=== PATIENT | male | born 1960 | race Caucasian/White ===

== ENCOUNTER 2020-08-17 01:05 | Inpatient (IN) | payer MEDICAID, SELFPAY ==
[~2020-08-17] VITALS: Ht 182.9 cm; Wt 104.8 kg
[2020-08-17 01:05] VITALS: BP 86/51
--- NOTE | 2020-08-17 01:05 | NUR ---
PT ANJELICA BLS. TAKEN TO BED 10
--- NOTE | 2020-08-17 01:10 | NUR ---
PT PLACED ON 4L NC BY EMS - CURRENT SAO2 88% - WILL MONITOR PT TO SEE IF OXYGEN LEVEL WILL INCREASE ON HIS OWN.
--- NOTE | 2020-08-17 01:10 | NUR ---
60 Y/O MALE BIBA C/O SYNCOPE . PT STATES HE HAS HAD 3 EPISODES OF SYNCOPE X 1 TODAY, X 2 YESTERDAY. PT STATES HE TESTED + FOR COVID THIS WEEK. PT C/O OF LOSS OF APPETITE BUT DENIES N/V/D. PT STATES HE HASN'T EATEN ANYTHING ALL WEEK. A/O X 4. RR EVEN , SHALLOW AND LABORED. LUNG SOUND BL CLEAR. NO COUGH NOTED AT THIS TIME. PT STATES HE FEELS WARM, TEMPORAL TEMP 99.6 F . ABD ROUND, SOFT AND TENDER ON RUQ. SKIN WARM , MOIST AND INTACT. PT PLACED ON BUSINESS ACCOUNT SPECIALIST, PULSE OX AND BP CUFF. ERMD MADE AWARE OF PT STATUS. PMH: HTN, HYPOTHYROID AX: PCN
[2020-08-17] MEDS ORDERED: NACL 0.9% 500 ML IV ONE (01:15)
--- NOTE | 2020-08-17 01:15 | NUR ---
20 G IN LT HAND IV PLACED BY EMS PRIOR TO ER ARRIVAL - FLUSHED W/ 10 CC NS . IV PATENT , NO INFILTRATION , REDNESS , SWELLING OR PAIN AT IV SITE.
--- NOTE | 2020-08-17 01:25 | NUR ---
Dr. Good examining patient.
--- NOTE | 2020-08-17 01:25 | NUR ---
PT PROVIDED URINAL FOR ENCOURAGEMENT OF URINE SAMPLE.
--- NOTE | 2020-08-17 01:30 | NUR ---
BLOOD COLLECTED AND WALKED TO LAB.
[2020-08-17 01:44] LABS: BASOPHILS % (AUTO) 0.4 % (0.0-2.0); EOSINOPHILS % (AUTO) 0.4 % (0.0-4.0); HEMATOCRIT 39.1 % (36-52); HEMOGLOBIN 13.6 g/dL (12.0-18.0); LYMPHOCYTES # (AUTO) 0.5 K/uL (2.0-11.5); LYMPHOCYTES % (AUTO) 8.1 % (20.5-51.1); MEAN CORPUSCULAR HEMOGLOBIN 39 pg (27-31); MEAN CORPUSCULAR HGB CONC 35 g/dL (33-37); MONOCYTES # (AUTO) 0.4 K/uL (0.8-1.0); MONOCYTES % (AUTO) 6.6 % (1.7-9.3); NEUTROPHILS # (AUTO) 5.1 K/uL (1.8-7.7); NEUTROPHILS % (AUTO) 84.5 % (42.2-75.2); PLATELET COUNT (AUTO) 223 K/uL (140-450); RED BLOOD CELL COUNT(AUTO) 3.46 MIL/uL (4.20-6.10); RED CELL DISTRIBUTION WIDTH 12.8 % (11.6-13.7); WHITE BLOOD COUNT (AUTO) 6.1 K/uL (4.8-10.8)
--- NOTE | 2020-08-17 01:55 | NUR ---
XRAY AT BEDSIDE.
[2020-08-17 01:59] LABS: ANION GAP 12.9 (8-16); CARBON DIOXIDE 27.4 mmol/L (21-32); CHLORIDE 94 mmol/L (98-107); CREATININE 2.1 mg/dL (0.6-1.3); GFR ARICAN-AMERICAN 41 mL/min (>90); GLUCOSE 128 mg/dL (74-106); POTASSIUM 3.3 mmol/L (3.5-5.1); SODIUM SERUM 131 mmol/L (136-145); UREA NITROGEN, BLOOD 49 mg/dL (7-18)
--- NOTE | 2020-08-17 02:00 | NUR ---
PT SAO2 88% ON 4L NC - PT PLACED ON 10L NRB AT THIS TIME. RAMYAD MADE AWARE.
--- NOTE | 2020-08-17 02:00 | NUR ---
RT AT BEDSIDE FOR ABG.
[2020-08-17 02:10] LABS: PROTHROMBIN TIME 10.1 secs (10.8-13.4)
--- NOTE | 2020-08-17 02:10 | NUR ---
FLU & RSV SWABS COLLECTED AND HANDED TO NAIMA TONEY TECH.
--- NOTE | 2020-08-17 02:15 | NUR ---
PT OXYGEN LEVEL INCREASED TO 15L NRB AT THIS TIME . SAO2 92%
[2020-08-17 02:17] LABS: ASPARTATE AMINOTRANSFERASE 121 U/L (15-37); D-DIMER 2080 ng/ml (0-400); TOTAL BILIRUBIN 1.4 mg/dL (0.0-1.0)
[2020-08-17 02:19] LABS: ACETAMINOPHEN < 0.5 ug/ml (10-30); SALICYLATE < 2.8 mg/dL (2.8-20.0)
[2020-08-17] MEDS ORDERED: NACL 0.9% 2,000 ML IV ONE (02:20)
[2020-08-17] MEDS ORDERED: ZINC SULF 220 MG CAP PO ONE (02:20)
[2020-08-17] MEDS ORDERED: AZITHROMYCIN 1,000 MG in DEXTROSE 5% 500 ML IV ONE (02:20)
[2020-08-17] MEDS ORDERED: DEXAMETHASONE 10 MG/ML VIAL IVP ONE (02:20)
[2020-08-17 02:21] LABS: FIBRINOGEN 500 mg/dL (200-400)
[2020-08-17] MEDS ORDERED: AZITHROMYCIN 500 MG INJ VIAL IV ONE (02:25)
[2020-08-17 02:30] LABS: RSV NEGATIVE (NEGATIVE)
--- NOTE | 2020-08-17 02:30 | NUR ---
URINE SAMPLE COLLECTED AND WALKED TO LAB.
--- NOTE | 2020-08-17 02:30 | NUR ---
PER DR. GARCIA , HE WANTS TO SEE IF PT'S BLOOD PRESSURE GOES UP AFTER 2L BOLUS , IF NOT WE MAY NEED TO DO CENTRAL LINE.
--- NOTE | 2020-08-17 02:33 | NUR ---
RINKU SCOTT SWAB COLLECTED AND WALKED TO LAB.
[2020-08-17 02:34] LABS: LACTATE DEHYDROGENASE 517 U/L (85-227)
[2020-08-17 02:41] LABS: APPEARANCE,URINE HAZY (CLEAR); BILIRUBIN,URINE 1+ (NEGATIVE); BLOOD, URINE NEGATIVE (NEGATIVE); COLOR,URINE YELLOW (YELLOW); LEUKOCYTE ESTERASE ,URINE NEGATIVE (NEGATIVE); NITRITE, URINE NEGATIVE (NEGATIVE); UGLUCOSE NEGATIVE (NEGATIVE)
--- NOTE | 2020-08-17 02:45 | NUR ---
USING TELEPHONE VICE PRINCIPAL #[phone] , ZARIA - VERBALLY WENT OVER THAT WE MAY NEED TO DO CENTRAL LINE OR PICC LINE INSERTION FOR PATIENT'S LOW BLOOD PRESSURE. OBTAINED VERBAL CONSENT AND UNDERSTANDING FROM PT AT THIS TIME. PT SIGNED FORM FOR CENTRAL LINE INSERTION AT THIS TIME.
[2020-08-17 02:55] LABS: C-REACTIVE PROTEIN QUANT 33.2 mg/dL (0.0-0.9)
--- NOTE | 2020-08-17 03:02 | NUR ---
SPOKE W/ KEVEN PEDIATRICS PHYSICIAN FOR [facility] REGARDING PT CLINICAL STATUS. WILL CALL BACK W/ UPDATE ON PT TRANSFER STATUS.
[2020-08-17 03:04] LABS: FREE T4 (FREE THYROXINE) 1.63 ng/dL (0.76-1.46); THYROID STIMULATING HORMONE 1.54 uIU/mL (0.34-3.74)
[2020-08-17 03:04] LABS: BARBITURATE, URINE NEGATIVE ng/ml (NEG <=200); BENZODIAZEPINE, URINE NEGATIVE ng/mL (NEG <=200); COCAINE, URINE NEGATIVE ng/mL (NEG <=300)
[2020-08-17 03:05] LABS: CANNABINOID, URINE NEGATIVE ng/mL (NEG <=50); OPIATE, URINE NEGATIVE ng/mL (NEG <=2000); PHENCYCLIDINE SCREEN,URINE NEGATIVE ng/mL (NEG <=25)
[2020-08-17] MEDS ORDERED: LEVO0.2T5 PO (03:30)
[2020-08-17] MEDS ORDERED: ORE25 PO (03:30)
[2020-08-17] MEDS ORDERED: LOSA50TA66 PO (03:30)
[2020-08-17] MEDS ORDERED: NACL 0.9% 1,000 ML IV ONE (03:50)
--- NOTE | 2020-08-17 03:56 | NUR ---
SPOKE W/ KRISTINA FROM AFTER HOURS PHARMACY FOR VERIFICATION OF MEDICATION AT THIS TIME.
[2020-08-17] MEDS ORDERED: NOREPINEPHRINE 4 MG/4 ML VIAL IV ONE (04:04)
--- NOTE | 2020-08-17 04:28 | NUR ---
PT REVIEW PICC LINE PAPER WORK - OBTAINED INFORMED CONSENT AT THIS TIME.
[2020-08-17] MEDS: NOREPINEPHRINE 4 MG in DEXTROSE 5% 250 ML IV PRN ×2 (04:30→04:42)
--- NOTE | 2020-08-17 04:30 | NUR ---
FOR UPDATED VITALS SEE IV SPREADSHEET
--- NOTE | 2020-08-17 04:37 | NUR ---
PER PT HIS EMERGENCY CONTACT IS HIS SARATH JOHNSON [phone]
--- NOTE | 2020-08-17 04:55 | NUR ---
PT TOOK MASK OFF TO DRINK WATER . PT SAO2 88% . PT ENCOURAGED TO KEEP MASK ON AT THIS TIME.
--- NOTE | 2020-08-17 05:39 | NUR ---
PT SLEEPING IN BED, LOCKED AND IN LOWEST POSITION ,HOB ELEVATED, SIDE RAIL X2 FOR PT SAFETY. SAO2 91% ON 15L NRB. NO ACUTE DISTRESS NOTED AT THIS TIME.
--- NOTE | 2020-08-17 06:25 | NUR ---
EMPTIED 750ML FROM URINAL AT THIS TIME. PT PROVIDED W/ NEW URINAL .
--- NOTE | 2020-08-17 06:30 | NUR ---
NOVEL COVID SWAB COLLECTED AND WALKED TO LAB.
--- NOTE | 2020-08-17 06:30 | NUR ---
PT LEVOPHED INCREASED TO 6 MCG / MIN AT THIS TIME. NO SIGNS OF INFILTRATION AT IV SITE.
--- NOTE | 2020-08-17 07:12 | NUR ---
REPORT GIVEN TO GAY OSBORNE FOR TRANSFER OF CARE.
--- NOTE | 2020-08-17 07:17 | NUR ---
Received report from GAY Mack. Transfer of care at this time
[2020-08-17] MEDS ORDERED: POTASSIUM CHLORIDE 40 MEQ, LIDOCAINE MPF 1% 25 MG in NACL 0.9% 250 ML IV PRN (08:15)
[2020-08-17] MEDS ORDERED: ALBUTEROL SULFATE/IPRATROPIU 3 ML SOL IH PRN (08:15)
[2020-08-17] MEDS ORDERED: ZOLPIDEM 5 MG TAB PO PRN (08:15)
[2020-08-17] MEDS ORDERED: ONDANSETRON 4 MG/2 ML VIAL IM/IVP PRN (08:15)
[2020-08-17] MEDS ORDERED: ALBUTEROL HFA MDI 90 MCG/ACTUATION 8 GM INH PRN (08:15)
[2020-08-17] MEDS ORDERED: HYDROcodone/APAP 7.5/325 MG 1 TAB PO PRN (08:15)
[2020-08-17] MEDS ORDERED: DOCUSATE SODIUM 100 MG GELCAP PO PRN (08:15)
--- NOTE | 2020-08-17 08:30 | NUR ---
Patient seated upright in bed eating breakfast. Positioned for comfort. VSS
[2020-08-17] MEDS ORDERED: COMMUNICATION ORDER MC PRN (09:00)
--- NOTE | 2020-08-17 09:00 | NUR ---
Pt self repositioned at this time. Lying on right lateral side. VSS, will continue to monitor
[2020-08-17] MEDS: PANTOPRAZOLE 40 MG TABEC PO SCH (09:09)
[2020-08-17] MEDS: ASCORBIC ACID 500 MG TAB PO SCH (09:09)
[2020-08-17 09:25] LABS: CHOL/HDL RATIO 5.9 (1-4.5); FREE T4 (FREE THYROXINE) 1.49 ng/dL (0.76-1.46); MAGNESIUM 2.6 mg/dL (1.8-2.4)
--- NOTE | 2020-08-17 10:05 | NUR ---
Spoke to patients son, call for updates. Higinio Bowling [phone] - Bailey [phone]
--- NOTE | 2020-08-17 10:25 | NUR ---
PICC line nurse at bedside for insertion of PICC line.
--- NOTE | 2020-08-17 10:46 | NUR ---
Xray at bedside for verification of picc line placement
--- NOTE | 2020-08-17 10:59 | NUR ---
PICC line placement verified by X-ray, OK for use at this time. Levophed moved to left arm PICC line.
[2020-08-17] MEDS ORDERED: CLINICAL MONITORING MC PRN (11:25)
[2020-08-17] MEDS ORDERED: LOVENOX 1MG/KG Q24H SUBQ SCH (11:35)
--- NOTE | 2020-08-17 12:00 | NUR ---
patient repositioned on back, rr even and unlabored. VSS
[2020-08-17] MEDS ORDERED: REMDESIVIR (EUA) 200 MG in NACL 0.9% 100 ML IV SCH (13:00)
[2020-08-17] MEDS: ALBUTEROL SULFATE/IPRATROPIU 3 ML SOL IH SCH ×2 (13:00→19:00)
--- NOTE | 2020-08-17 14:02 | NUR ---
DISCHARGE PLANNING: THIS IS A 60 Y/O MALE PATIENT FROM HOME, WHO CAME IN DUE TO SYNCOPAL EPISODE. PAST MEDICAL HISTORY INCLUDE HTN, HYPOTHYROIDISM. INITIAL DIAGNOSIS OF COVID, HYPOXIA, PNEUMONIA, HYPOTENSION. CURRENT LABS INCLUDE WBC 6.1, H/H 13.6/39.1, NA/K 131/3.3, BUN/CREA 49/2.1, FIBRINOGEN 500, D DIMER 2080. RAPID COVID TEST NEGATIVE, PCR PENDING. CXR ON ADMISSION SHOWED HAZY INFILTRATE IN THE MID AND LUNG BASES BILATERALLY. ON REMDESIVIR, AZITHROMYCIN, DECADRON, ROCEPHIN. SEEN BY PULMO - CONT TO WEAN O2, WEAN VASOPRESSOR IF MAP GOES ABOVE 65, ID CONSULT, RECOMMENDS CONVALESCENT PLASMA. SEEN BY NEPHRO - GENTLE HYDRATION, STEROIDS WITH REMDESIVIR. ON 15 L NON REBREATHER, O2 SAT 92%. DC PLAN PENDING ON PATIENT RESPONSE TO TREATMENT. Addendum: 08/20/20 at 1143 by Lana Chin CM LATE ENTRY FOR THIS MORNING: MATEO ROBERTS OF [facility] UPDATED OF THE PATIENT'S CONDITION. SHE REQUESTED TO SEND CLINICALS TO [phone]. UPDATED CLINICALS SENT TO PROVIDED FAX NUMBER. Addendum: 08/20/20 at 1235 by Lana Chin CONTACTED MATEO ISIDROY OF [facility] TO CHECK IF SHE RECEIVED CLINICALS SENT, SHE STATED HER COORDINATOR MIGHT BE WORKING ON IT. I INQUIRED IF SHE HAS AN AUTH AVAILABLE FOR US. SHE PROVIDED ME WITH AUTH [id number]. Addendum: 08/21/20 at 1203 by Dana Oneal CM ALBERT HEAD: SENT UPDATED CLINICALS TO [facility]. Addendum: 08/22/20 at 1454 by Dana Oneal CM DC ALL ROUND LOGGER: FAXED UPDATED CLINICALS TO [facility] Addendum: 08/22/20 at 1643 by Lana Chin CM PER DR. GALE THIS PATIENT SHOULD BE UNDER THEIR SERVICES PER INSURANCE. CONTACTED MATEO ROBERTS OF [facility] AND SHE CONFIRMED THAT ALL THEIR [place] [facility] [place]. REAL MADE AWARE. PER DR. REAL OK TO PUT ADM ORDERS IN TO TRANSFER SERVICE. ORDER TRANSCRIBED. DR. GALE MADE AWARE. DR. GALE'S PHONE NUMBER PROVIDED TO DR. REAL. Addendum: 08/30/20 at 1547 by Liz Urbina RN DC PLANNING: CURRENTLY ON HIGH FLOW 40L/NC FIO2 100% PT COMPLETED THE CONVALESCENT PLASMA AND REMDESEVIR. DC PLAN TO WEAN HIM OFF O2 CM TO FOLLOW. Addendum: 09/04/20 at 1357 by Liz Urbina RN DC PLANNING: PT IS ON HIGH FLOW O2 40L/NC SATING 91% FIO2 100% COMPLETED REMDESEVIR , DECADRON AND CONVALESCENT PLASMA .ID AND PULMO FOLLOWING.DC PLAN TO WEAN O2 OFF. CM TO FOLLOW. Addendum: 09/13/20 at 1414 by Liz Urbina RN DC PLANNING PT IS STILL ON HIGH FLOW 15LNRB SATING 95% PER PULMO CONSULT PT NEEDS LTAC EVAL. [facility]ED TO [facility] CM TO FOLLOW Addendum: 09/13/20 at 1453 by Liz Urbina RN DC PLANNING: CALLED [facility] [phone] AND LEFT A MESSAGE REGARDING LTAC EVAL .CM TO FOLLOW Addendum: 09/19/20 at 1227 by Liz Urbina RN DC PLANING: PT IS ON 15L/NRB STILL PENDING FOR LTAC EVAL SPOKE WITH JULISSA AT [facility] NO BED AVAILABLE .CALLED REGLOYD CM AT [phone] LEFT A MESSAGE. CM TO FOLLOW Addendum: 09/19/20 at 1431 by Liz Urbina RN DC PLANING: CALLED PT'S [phone] SPOKE WITH SARATH AND THE DAUGHTER LOUIE DISCUSSED WITH THE THE NEED FOR LTAC . ANSWERED ALL QUESTION AND CONCERNS ,BOTH AGREED FOR HIM TO GO TO [facility] TO WEAN OFF OXYGEN AND JULISSA FROM [facility] WILL CONTACT THEM. CM TO FOLLOW. Addendum: 09/24/20 at 1254 by Dana Oneal CM DC ALL ROUND LOGGER: RECEIVED ORDER FOR HOME O2 FAXED ORDER TO [facility] AND FOLLOWED UP WITH MATEO TIJERINA [phone]. SHE IS WORKING ON THE ORDER SHE WILL BE SENDING IT OUT TO [facility]. PROVIDED HER WITH MY NUMBER TO FOLLOW UP
[2020-08-17] MEDS: ACETAMINOPHEN 325 MG TAB PO PRN (14:08)
[2020-08-17] MEDS: guaiFENesin DM 200/20 MG-10 ML 10 ML UDC PO PRN ×2 (14:08→21:33)
--- NOTE | 2020-08-17 15:10 | NUR ---
hhn rx not given due to covid percautions
--- NOTE | 2020-08-17 15:29 | NUR ---
Levophed titrated to 0 at this time. D/C to see how patient tolerates off of levophed.
--- NOTE | 2020-08-17 16:19 | NUR ---
Pt resting with eyes closed, visible rise and fall of the chest. No complaints at this time. VSS
[2020-08-17] MEDS ORDERED: ENOXAPARIN 100 MG/ML SYR SUBQ SCH (17:00)
--- NOTE | 2020-08-17 18:17 | NUR ---
Pt given dinner tray, seated upright awake and alert. VSS .
--- NOTE | 2020-08-17 19:18 | NUR ---
Report given to GAY Liang. Transfer of care at this time
--- NOTE | 2020-08-17 19:20 | NUR ---
RECEIVED REPORT FROM [place] RASHID FOR CONTINUITY OF CARE.
--- NOTE | 2020-08-17 20:02 | NUR ---
PT REPOSITIONED , LIGHTS DIMMED , X 2 SIDE RAILS PER PTS REQUEST FOR COMFORT AT THIS TIME.
--- NOTE | 2020-08-17 20:05 | NUR ---
PT PRESENTS WELL VSS. HE IS AAOX4, BULGARIAN SPEAKING ONLY. ON 5 L OF OXYGEN VIA NC. LAYING IN BED FLAT PER PTS REQUEST FOR COMFORT. PT WAS NOTED WITH A DRY COUGH, LUNG SOUNDS WHEEZING ON AUSCULTATION BILATERALLY. HEART SOUNDS WERE EVEN AND REGULAR. PT CONTINUES ON WATER RESOURCES PROJECT MANAGER, PULSE OXIMETRY AND BP MONITORING. BED LOCKED AND IN LOWEST POSITION. SIDE RAILS X2 PER PTS REQUEST AND COMFORT.
--- NOTE | 2020-08-17 20:15 | NUR ---
DR. ASHLEY INFECTIOUS DISEASE CAME IN TO EVALUATE PT.
--- NOTE | 2020-08-17 21:04 | NUR ---
HHN NOT GIVEN DUE TO COVID PROTOCOL
--- NOTE | 2020-08-17 21:10 | NUR ---
PT WAS NOTED WITH SPO2 AT 78% ON 5 L LITERS OF OXYGEN VIA NC. PT WAS PLACED ON 15 L VIA NON-REBREATER. PT'S SPO2 REMAINED AT 89%. NOTIFIED DR. ASHLEY NOTIFIED AND VERBALIZED TO "JUST MONITOR PT FOR NOW". NO NEW ORDERS AT THIS TIME. WILL CONTINUE TO MONITOR PT. PT REMAINS AAO X 4. RR 41. CALL LIGHT PLACED WITHIN REACH. WILL CONTINUE ON PULSE OXIMETRY, CARDIAC MONITORING AND BP MONITORING.
[2020-08-17 22:26] LABS: CHLORIDE,URINE RANDOM 86 mmol/L (110-250); CREATININE,URINE RANDOM 55 mg/dL (30-125); URINE SODIUM, RANDOM 85 mmol/l (40-220)
--- NOTE | 2020-08-17 23:00 | NUR ---
PT'S SPO2 INCREASED TO 93% ON 15L OF OXYGEN VIA NON-REBREATHER. HE CONTINUES TO REMAIN ON PULSE OXIMETRY, CARDIAC MONITORING & BP MONITORING. CALL LIGHT WITHIN REACH. PT WAS REPOSITION FOR COMFORT AND ADJUSTED HOB TO COMFORTABLE POSITION. PROVIDED PT WITH WATER REQUESTED. WILL CONTINUE TO MONITOR.
[2020-08-18] MEDS: ALBUTEROL SULFATE/IPRATROPIU 3 ML SOL IH SCH ×3 (01:00→13:00)
--- NOTE | 2020-08-18 01:05 | NUR ---
NOTIFIED THAT PT SATURATION WAS 80%-85% ON 15 L OF OXYGEN VIA NON-REBREATHER AND THAT PT WAS PRESENTING WITH TACHYPNEA, RR OF 40. DR. ASHLEY GAVE TELEPHONE ORDER TO START PT ON BIPAP AND TO TITRATE FOR SPO2 >90%.
--- NOTE | 2020-08-18 01:13 | NUR ---
RT AT BEDSIDE PLACING PT ON BIPAP PER 'S ORDERS. GAVE TO/RB TO TITRATE FOR O2 SAT TO BE GREATER THAN 90%.
--- NOTE | 2020-08-18 01:29 | NUR ---
WENT TO BEDSIDE AND PLACED PT ON BIPAP PER DR ORDERS ( AND WILL TITRATE SPO2 >90% ) INITIALLY PT SPO2 MID/HIGH 70s UPON ARRIVAL PT WAS PLACED ON 06/18 AND SPO2 STEADLY CLIMBED INTO 90s PER PT HE UTILIZES NOC BIPAP AT HOME PT TOLERATING BIPAP WELL AT THIS TIME
--- NOTE | 2020-08-18 01:47 | NUR ---
RECEIVED TELEPHONE ORDER FROM DR. ASHLEY FOR ABG.
--- NOTE | 2020-08-18 02:12 | NUR ---
PT TOLERATING BIPAP WELL SATURATION AT 98%. RR OF 41 AT THIS TIME. CONTINUES ON CARDIAC MONITORING, PULSE OXIMETRY AND BP MONITORING. WILL CONTINUE TO MONITOR.
--- NOTE | 2020-08-18 02:30 | NUR ---
EMPTIED PT'S URINAL WITH 700ML OF YELLOW CLEAR URINE.
--- NOTE | 2020-08-18 02:41 | NUR ---
HHN NOT GIVEN PER COVID PROTOCOL
--- NOTE | 2020-08-18 03:20 | NUR ---
RT AT BEDSIDE FOR ABG LAB DRAWN.
--- NOTE | 2020-08-18 05:11 | NUR ---
PT REMAINS ON BIPAP RR OF 36. VSS. DENIES HAVING ANY PAIN OR DISCOMFORT. URINAL AT BEDSIDE. REMAINS ON CARDIAC MONITORING, PULSE OXIMETRY AND BP MONITORING. BED LOCKED AND IN LOWEST POSITION. WILL CONTINUE TO MONITOR.
--- NOTE | 2020-08-18 06:37 | NUR ---
PT REMAINS ON BIPAP O2SAT OF 94% & RR OF 35. VSS. DENIES HAVING ANY PAIN OR DISCOMFORT. REMAINS ON CARDIAC MONITORING, PULSE OXIMETRY AND BP MONITORING. BED LOCKED AND IN LOWEST POSITION. WILL CONTINUE TO MONITOR. CALL LIGHT WITHIN REACH.
--- NOTE | 2020-08-18 07:03 | NUR ---
RT AT BEDSIDE AND LABS AT BEDSIDE.
--- NOTE | 2020-08-18 07:15 | NUR ---
REPORT GIVEN TO YOHANNES RASHID FOR CONTINUITY OF CARE.
--- NOTE | 2020-08-18 07:38 | NUR ---
REPORT RECEIVED FROM EMMY RASHID
--- NOTE | 2020-08-18 07:45 | NUR ---
REPORT RECEIVED FROM YOHANNES ARMSTRONG RN OVER THE PHONE. PATIENT STABLE AT THIS TIME, O2 SATURATION 95% ON BIBAP. PATIENT IS SLATED TO BE TRANSFERRED TO FLOOR IN 10 MINUTES.
[2020-08-18 08:00] VITALS: BP 103/70
--- NOTE | 2020-08-18 08:14 | NUR ---
Patient will be admitted to care of [facility] . Admited to TELE. Will go to room 121. Belongings list completed. Report to MIK RSAHID.
[2020-08-18 08:15] LABS: BASOPHILS % (AUTO) 0.1 % (0.0-2.0); HEMATOCRIT 39.5 % (36-52); HEMOGLOBIN 13.6 g/dL (12.0-18.0); LYMPHOCYTES # (AUTO) 0.3 K/uL (2.0-11.5); LYMPHOCYTES % (AUTO) 3.2 % (20.5-51.1); MEAN CORPUSCULAR HEMOGLOBIN 39 pg (27-31); MEAN CORPUSCULAR HGB CONC 34 g/dL (33-37); MEAN CORPUSCULAR VOLUME 113.2 fL (80-94); MONOCYTES # (AUTO) 0.5 K/uL (0.8-1.0); NEUTROPHILS # (AUTO) 8.3 K/uL (1.8-7.7); NEUTROPHILS % (AUTO) 91.7 % (42.2-75.2); PLATELET COUNT (AUTO) 285 K/uL (140-450); RED BLOOD CELL COUNT(AUTO) 3.49 MIL/uL (4.20-6.10); RED CELL DISTRIBUTION WIDTH 12.8 % (11.6-13.7); WHITE BLOOD COUNT (AUTO) 9.1 K/uL (4.8-10.8)
--- NOTE | 2020-08-18 08:17 | NUR ---
PATIENT HAS BEEN SCREENED AND CATEGORIZED HIGH NUTRITION RISK. PATIENT WILL BE SEEN WITHIN 1-2 DAYS OF ADMISSION. 08/18/20 08/19/[address]
[2020-08-18 08:54] LABS: MAGNESIUM 2.2 mg/dL (1.8-2.4); PHOSPHORUS 2.4 mg/dL (2.5-4.9)
[2020-08-18] MEDS ORDERED: AZITHROMYCIN 250 MG TAB PO SCH (09:00)
[2020-08-18 09:03] LABS: ALBUMIN 2.7 g/dL (3.4-5.0); ANION GAP 12.6 (8-16); CARBON DIOXIDE 28.3 mmol/L (21-32); CREATININE 0.9 mg/dL (0.6-1.3); POTASSIUM 3.9 mmol/L (3.5-5.1); TOTAL BILIRUBIN 0.6 mg/dL (0.0-1.0)
--- NOTE | 2020-08-18 10:00 | NUR ---
0900 LINDA NOT AVAILABLE. CALLED PHARMACY. THEY WILL BRING MEDICATION.
[2020-08-18] MEDS: ZINC SULF 220 MG CAP PO SCH (10:23)
[2020-08-18] MEDS: ASCORBIC ACID 500 MG TAB PO SCH (10:23)
[2020-08-18] MEDS: PANTOPRAZOLE 40 MG TABEC PO SCH (10:23)
[2020-08-18 12:00] VITALS: BP 112/61
--- NOTE | 2020-08-18 12:10 | NUR ---
PATIENT'S ON CHRISTOPHER CALLED. PHONE #: [phone]. SARATH CONFERENCED IN ON THE CALL. UPDATED THEM ON PATIENT'S CONDITION. ANSWERED QUESTIONS THEY HAD TO THEIR SATISFACTION.
--- NOTE | 2020-08-18 12:55 | NUR ---
Dr. Storm in to see the patient. New order in for patient to be weaned from BIPAP to HFNC with NRB mask. Forwarded Doctor's request to RT. Will continue to monitor patient.
--- NOTE | 2020-08-18 12:57 | NUR ---
08/18/20 RD INITIAL ASSESSMENT COMPLETED PLEASE REFER TO NUTRITION ASSESSMENT UNDER CARE ACTIVITY FOR ESTIMATED NUTRITIONAL NEEDS. 1. CONTINUE REGULAR DIET TOLERATED 2. CONTINUE ENSURE TID TOLERATED 3. RD TO FOLLOW-UP 2-3 DAYS, HIGH RISK HENRI CASTILLO RD
[2020-08-18] MEDS ORDERED: ENOXAPARIN 100 MG/ML SYR SUBQ SCH (13:00)
[2020-08-18] MEDS: REMDESIVIR (EUA) 100 MG in NACL 0.9% 100 ML IV SCH ×2 (13:35→13:39)
[2020-08-18] MEDS: ENOXAPARIN 120 MG/0.8 ML SYR SUBQ SCH (13:41)
--- NOTE | 2020-08-18 13:45 | NUR ---
UNABLE AT THIS TIME TO WEAN PT OFF BIPAP PT DESAT TO 86% WHILE SLEEPING WILL TRY LATER TO CHANGE PT TO HIGH FLOW O2 WITH 100% NRB PER ORDERS
[2020-08-18 16:00] VITALS: BP 112/74
--- NOTE | 2020-08-18 16:50 | NUR ---
PATIENT'S SON CHRISTOPHER CALLED. UPDATED HIM ON PATIENT'S CONDITION. HE VERBALIZED UNDERSTANDING.
[2020-08-18] MEDS: guaiFENesin DM 200/20 MG-10 ML 10 ML UDC PO PRN (17:03)
--- NOTE | 2020-08-18 17:33 | NUR ---
DR ASHLEY IN TO SEE THE PATIENT. WILL WAIT FOR NEW ORDERS.
--- NOTE | 2020-08-18 19:06 | NUR ---
PT REMOVED FROM BIPAP AND PT PLACED ON HFNC 40L 100% TOLERATING FAIRLY WELL AT THIS TIME RN MADE AWARE WILL CONTINUE TO MONITOR
--- NOTE | 2020-08-18 19:20 | NUR ---
RECEIVED PT IN STABLE CONDITION FROM AM NURSE. PT IS AWAKE,ALERT AND ORIENTED X4. TELE PT. ON DROPLET ISOLATION FOR COVID +. NO SOB NOTED. JUST STARTED BY RT WITH HI FLOW O2 FEW MINUTES AGO. WILL MONITOR FOR PT TOLERATION WITH THIS. HAS IV ACCESS W/C IS ON LEFT UPPER ARM PICC LINE. IVF KVO. FREQ ROUNDS NEEDED. BED ON LOW POSITION. SIDE RAILS UP X2. CALL LIGHT WITHIN REACH. WILL CONTINUE TO MONITOR.
[2020-08-18 20:00] VITALS: BP 90/42
--- NOTE | 2020-08-18 20:20 | NUR ---
SPO2 85% UPON ARRIVAL PT STATED THE CANNULA MOVED/MOVED AWAY FROM FACE AND HE REPLACED PT ALSO TENDS TO MOUTH BREATHE AT TIMES PT CURRENT SPO2 92% HR 78 ON HFNC 40L 100% NRB PLACED ON PT WELL PT SEEMS TO BE COMFORTABLE AND MAY GO TO SLEEP SOON WILL CONTINUE TO MONITOR
--- NOTE | 2020-08-18 20:30 | NUR ---
CHECKED ON PT. RESTING IN BED, NO SOB NOTED. WITH O2 SAT 97% WITH HI SHAMA AND NRM BOTH 100%. WILL CONTINUE TO MONITOR .
--- NOTE | 2020-08-18 22:30 | NUR ---
MADE ROUNDS. PT O2 SAT 88%. RT CALLED TO REASSESS PT.
--- NOTE | 2020-08-18 23:00 | NUR ---
CHECKED ON PT . ASLEEP. O2 SAT 02%. NO SOB NOTED. WILL CONTINUE TO MONITOR. Addendum: 08/19/20 at 0320 by Shakila Parekh RN O2 SAT 92% NOT O2%. CAREGIVER MISTAKE.
[2020-08-19] VITALS (7 sets, daily range): BP systolic 86–116; BP diastolic 42–74
[2020-08-19] MEDS: ENOXAPARIN 120 MG/0.8 ML SYR SUBQ SCH ×2 (00:41→12:03)
--- NOTE | 2020-08-19 00:45 | NUR ---
LOVENOX ORDERED GIVEN SUBQ ON THE ABDOMEN. INSTRUCTED AGAIN PT TO LAY ON THE SIDE TO GET ENOUGH O2 . O2 SAT AT THIS TIME 91%. NO SOB NOTED.
--- NOTE | 2020-08-19 02:55 | NUR ---
CHECKED ON PT. ASLEEP. O2 SAT ONLY 79%. INSTRUCTED PT TO LAY ON THE SIDE . PRESTON,RT CAME. ASSESSED PT. O2 SAT STARTED TO GO UP TO 91%.
[2020-08-19] MEDS ORDERED: NACL 0.9% 500 ML IV ONE (04:20)
--- NOTE | 2020-08-19 04:22 | NUR ---
BP IS LOW 86/42 . LEFT MESSAGE TO DR. ASHLEY. ANSWERED BACK AND ORDERED TO GIVE NS 500 ML IV BOLUS THEN AFTER 30 MIN TO 1HR BP NOT IMPROVING GIVE ANOTHER NS 500 IV BOLUS
--- NOTE | 2020-08-19 05:43 | NUR ---
SPO2 91% HR 75 PT RESTING COMFORTABLY AT THIS TIME Addendum: 08/19/20 at 0546 by Hu Layne Jr RT WATER BAG / FULL
--- NOTE | 2020-08-19 06:02 | NUR ---
TALKED TO CHRISTOPHER ZENG. SON REGARDING PT NEEDING CONVALESCENT PLASMA I UNIT. PT ALREADY SIGNED CONSENT BUT THEN HE STILL WANTS TO TALK TO THE MD REGARDING THE TREATMENTS HE IS GETTING HERE. SON SAID HE IS ALSO GOING TO TELL HIS MOM ABOUT THIS. WILL CALL ME BACK.
[2020-08-19 06:18] LABS: BASOPHILS % (AUTO) 0.1 % (0.0-2.0); HEMATOCRIT 37.9 % (36-52); HEMOGLOBIN 12.9 g/dL (12.0-18.0); LYMPHOCYTES # (AUTO) 0.6 K/uL (2.0-11.5); MEAN CORPUSCULAR HEMOGLOBIN 39 pg (27-31); MEAN CORPUSCULAR HGB CONC 34 g/dL (33-37); MEAN CORPUSCULAR VOLUME 113.6 fL (80-94); MONOCYTES # (AUTO) 0.8 K/uL (0.8-1.0); MONOCYTES % (AUTO) 8.6 % (1.7-9.3); NEUTROPHILS # (AUTO) 7.7 K/uL (1.8-7.7); PLATELET COUNT (AUTO) 290 K/uL (140-450); RED BLOOD CELL COUNT(AUTO) 3.33 MIL/uL (4.20-6.10); RED CELL DISTRIBUTION WIDTH 12.9 % (11.6-13.7); WHITE BLOOD COUNT (AUTO) 9.1 K/uL (4.8-10.8)
[2020-08-19 06:48] LABS: ALBUMIN 2.6 g/dL (3.4-5.0); CREATININE 0.8 mg/dL (0.6-1.3); TOTAL BILIRUBIN 0.6 mg/dL (0.0-1.0)
--- NOTE | 2020-08-19 06:50 | NUR ---
NS 500 ML BOLUS FINISHED INFUSING. LATEST BP 116/74, HR-75 AND O2 SAT 97%. WILL ENDORSE TO AM NURSE.
--- NOTE | 2020-08-19 07:04 | NUR ---
LEFT MESSAGE TO DR. ASHLEY THAT PT WANTS TO TAKE HIS LEVOTHYROXINE 200MCG PO DAILY. WAITING FOR CALL BACK.
--- NOTE | 2020-08-19 07:20 | NUR ---
ENDORSED PT IN STABLE CONDITION TO AM NURSE .
--- NOTE | 2020-08-19 07:21 | NUR ---
RECEIVED REPORT FROM PM RN FOR CONTINUITY OF CARE. PT IS STABLE. WILL CONTINUE WITH POC.
[2020-08-19 07:31] LABS: LYMPHOCYTES % (AUTO) 6.8 % (20.5-51.1); NEUTROPHILS % (AUTO) 84.5 % (42.2-75.2)
--- NOTE | 2020-08-19 07:41 | NUR ---
PT HAD HIGH FLOW NC OFF AND O2 WAS 89% TURNED DOWN FLOW TO 30 DUE TO PT SAYING TOO MUCH PLACE BACK NC AND NRB ON PT
[2020-08-19] MEDS: ASCORBIC ACID 500 MG TAB PO SCH (08:32)
[2020-08-19] MEDS: PANTOPRAZOLE 40 MG TABEC PO SCH (08:32)
[2020-08-19] MEDS: ZINC SULF 220 MG CAP PO SCH (08:33)
--- NOTE | 2020-08-19 08:45 | NUR ---
PT IS AWAKE AND ALERT ORIENTED X 4 IN NO DISTRESS REMAIN ON HIGHFLOW AND NRB AT 15L. SPO2 94%. LUNG SOUNDS COARSE ABD IS SOFT AND NONTENDER WITH ACTIVE BS X4, DENIES DIFFICULTY GOING. SKIN INTACT. CALL LIGHT WITHIN REACH. PT ASKED ABOUT LEVOTHYROXINE ORDER STILL WAITING FOR MD RESPONSE. HAS URINAL AT BEDSIDE TKO TO LEFT UPPER ARM PICC LINE. WILL CONTINUE WITH POC.
[2020-08-19] MEDS ORDERED: LEVOTHYROXINE 0.075 MG TAB PO SCH (09:25)
--- NOTE | 2020-08-19 10:44 | NUR ---
PT IS RESTING IN BED SPO2 95-97% CALL LIGHT WITHIN REACH PT REMAINS FOCUSED ON WANTING TO SPEAK TO MD. PT NOTIFIED MD WILL COME TO DO ROUNDS TODAY. ALL NEEDS MET AT THIS TIME.
[2020-08-19] MEDS: REMDESIVIR (EUA) 100 MG in NACL 0.9% 100 ML IV SCH (12:04)
--- NOTE | 2020-08-19 12:50 | NUR ---
PT IS AWAKE LAYING ON LEFT SIDE RECEIVING REMDESIVIR WITH NO ISSUES TO LEFT UPPER ARM PICC. PT REMAINS ON HIGH FLOW AND NRB AT 95%. ALL NEEDS MET. RECEIVED PHONE CALL FROM LAB REGARDING POSITIVE PCR FOR COVID DR. ASHLEY NOTIFIED. PT IS ALREADY ON DROPLET PRECAUTION.
--- NOTE | 2020-08-19 14:20 | NUR ---
RESTING IN BED WITH EYES CLOSED, RESP EVEN AND UNLABORED. CALL LIGHT WITHIN REACH SP02 97%.
--- NOTE | 2020-08-19 16:40 | NUR ---
SPO2 94-97% ON HIGH FLOW 100% AND NRB 15L ALL NEEDS MET AT THIS TIME. V/S: 97.0, 78, 20, 109/53, 97%. Addendum: 08/19/20 at 1733 by Lisbet Giron RN PAIN 0/10
--- NOTE | 2020-08-19 18:45 | NUR ---
PT SITTING UP IN BED, EATING DINNER IN NO DISTRESS. PT TOLERATING MEALS WELL. ALL NEEDS ARE MET. CALL LIGHT WITHIN REACH.
--- NOTE | 2020-08-19 19:15 | NUR ---
PT ENDORSED TO PM RN FOR CONTINUITY OF CARE PT IS STABLE, NEW LEADS JUST APPLIED
--- NOTE | 2020-08-19 19:16 | NUR ---
RECD. SITTING ON BED, AWAKE, A/OX4. WITH SOB, RR - 30. ON HI-SHAMA OXYGEN SATURATING 89 - 95%. ADVISED TO LIE MORE ON THE LEFT SIDE OR RIGHT SIDE SO THAT HIS 02 SAT WILL NOT DROP LOW. VERBALIZED UNDERSTANDING. LEFT UPPER ARM PICC LINE INTACT WITH NS INFUSING AT TKO. USES THE URINAL. PLAN OF CARE DISCUSSED WITH GAY NAJERA TO THE PATIENT. DENIES PAIN 0/10.
--- NOTE | 2020-08-19 20:00 | NUR ---
Patient's Plan of Care was discussed and reviewed with PRESTRESSED CONCRETE LABORER: RISHABH KIDD
--- NOTE | 2020-08-19 20:14 | NUR ---
WATERBAG 1/3 FULL PT DENIES SOB AT THIS TIME WILL CONTINUE TO MONITOR
--- NOTE | 2020-08-19 21:00 | NUR ---
RESTING IN BED ON HIS LEFT SIDE, 02 SAT - 94%.
[2020-08-20] VITALS: BP 98/59
--- NOTE | 2020-08-20 | NUR ---
SLEEPING ON HIS RIGHT SIDE. NO RESPIRATORY DISTRESS NOTED, 02 SAT - 89%.
[2020-08-20] MEDS: ENOXAPARIN 120 MG/0.8 ML SYR SUBQ SCH ×2 (01:56→13:45)
--- NOTE | 2020-08-20 02:00 | NUR ---
WATERBAG 1/8 FULL REPLACEMENT AT BEDSIDE
[2020-08-20 04:00] VITALS: BP 102/64
--- NOTE | 2020-08-20 04:00 | NUR ---
AWAKE IN BED, WANTS HIS THYROID PILLS ONE HOUR BEFORE BREAKFAST, ASSURED PRINCESS THE WILL GET IT ON TIME.
[2020-08-20 06:11] LABS: BASOPHILS % (AUTO) 0.1 % (0.0-2.0); HEMATOCRIT 37.8 % (36-52); HEMOGLOBIN 12.7 g/dL (12.0-18.0); LYMPHOCYTES # (AUTO) 0.5 K/uL (2.0-11.5); MEAN CORPUSCULAR HEMOGLOBIN 38 pg (27-31); MEAN CORPUSCULAR HGB CONC 34 g/dL (33-37); MEAN CORPUSCULAR VOLUME 114.4 fL (80-94); MONOCYTES # (AUTO) 0.8 K/uL (0.8-1.0); MONOCYTES % (AUTO) 8.2 % (1.7-9.3); NEUTROPHILS # (AUTO) 8.2 K/uL (1.8-7.7); NEUTROPHILS % (AUTO) 86.7 % (42.2-75.2); PLATELET COUNT (AUTO) 315 K/uL (140-450); RED BLOOD CELL COUNT(AUTO) 3.31 MIL/uL (4.20-6.10); RED CELL DISTRIBUTION WIDTH 12.8 % (11.6-13.7); WHITE BLOOD COUNT (AUTO) 9.5 K/uL (4.8-10.8)
[2020-08-20] MEDS: LEVOTHYROXINE 0.075 MG TAB PO SCH (06:16)
[2020-08-20 06:39] LABS: ALBUMIN 2.4 g/dL (3.4-5.0); CARBON DIOXIDE 30.1 mmol/L (21-32); CREATININE 0.8 mg/dL (0.6-1.3); POTASSIUM 4.1 mmol/L (3.5-5.1); TOTAL BILIRUBIN 0.6 mg/dL (0.0-1.0)
[2020-08-20] MEDS: ALBUTEROL SULFATE/IPRATROPIU 3 ML SOL IH SCH ×3 (07:00→19:00)
--- NOTE | 2020-08-20 07:00 | NUR ---
RESPIRATORY STATUS REMAIN STABLE. WILL ENDORSE TO AM SHIFT NURSE FOR CONTINUITY OF CARE.
[2020-08-20 08:00] VITALS: BP 121/59
[2020-08-20] MEDS: ASCORBIC ACID 500 MG TAB PO SCH (09:48)
[2020-08-20] MEDS: PANTOPRAZOLE 40 MG TABEC PO SCH (09:48)
[2020-08-20] MEDS: ZINC SULF 220 MG CAP PO SCH (09:48)
--- NOTE | 2020-08-20 10:00 | NUR ---
ADMINISTERED SCHEDULED MEDICATION, MEDICATION EDUCATION PROVIDED, PT VERBALIZED UNDERSTANDING, PT TOLERATED WELL, PT IS STABLE, WILL CONTINUE TO MONITOR.
[2020-08-20 12:00] VITALS: BP 115/68
[2020-08-20] MEDS: REMDESIVIR (EUA) 100 MG in NACL 0.9% 100 ML IV SCH (13:45)
--- NOTE | 2020-08-20 13:50 | NUR ---
ADMINISTERED SCHEDULED MEDICATION, MEDICATION EDUCATION PROVIDED, PT TOLERATED WELL. PT IS STABLE, WILL CONTINUE TO MONITOR. PT'S FAMILY UPDATED ON PT'S CONDITION.
--- NOTE | 2020-08-20 14:30 | NUR ---
SOCIAL WORK NOTE: Patient's Orientation Unable To Assess Information Provided By SARATH JOHNSON - Comments SW WAS UNABLE TO MEET PATIENT AT BEDSIDE DUE TO MEDICAL CONDITION. SW COMPLETED ASSESSMENT WITH PATIENT'S AND SON TELEPHONICALLY. Roller Coaster Designer, Realtionship and Phone Number SARATH GROVES [phone] Healthcare Power of Urban Designer No Does Patient Have a POLST No Identifying Problems No Social Work Triggers Is A Social Work Consult Needed No Mandate Report Filed No Explanation Of Identifying Problems PATIENT IS A 60-YEAR-OLD MALE ADMITTED FOR COVID, HYPOXIA, AND PNEUMONIA. PATIENT HAS PMHX OF HYPERTENSION AND THYROID DISEASE. PATIENT'S REPORTED NO HISTORY OF SUBSTANCE ABUSE OR MENTAL HEALTH. Admitted From Home Pre-Admission Level Of Functioning Status Independent/Ambulatory Prior Resources/Services Used In Last 12 Months No Prior Resources Used Prior DME No Prior DME Used Dialysis Comments N/A Living Situation Lives With Family House Other Living Situation/Comment PATIENT'S REPORTED THAT PATIENT LIVES WITH AND SON. Patient Had Caregiver No Home Support No Caregiver Issues Financial Issues No Known Financial Issue Referral To The Financial Counselor Needed No Factors/Needs No D/C Needs Identified Pt/Rep Participated In Discharge Plan Yes Patient/Family Agress With Discharge Plan Yes Discharge Plan Comments TENTATIVE DISCHARGE PLAN IS FOR PATIENT TO RETURN HOME. DC Plan Status Initiated
--- NOTE | 2020-08-20 15:30 | NUR ---
PT SITTING IN BED, NO SIGNS OF DISTRESS NOTED, PT STABLE WILL CONTINUE TO MONITOR
[2020-08-20 16:00] VITALS: BP 120/67
--- NOTE | 2020-08-20 17:50 | NUR ---
PT CALLING ASKING ABOUT PLASMA. INFORMED PT, WILL NOTIFIED BLOOD BANK, PT IS STABLE, WILL CONTINUE TO MONITOR.
--- NOTE | 2020-08-20 19:20 | NUR ---
ENDORSE PT TO NIGHT NURSE FOR CONTINUITY OF CARE, PT IS STABLE, WILL CONTINUE TO MONITOR.
--- NOTE | 2020-08-20 19:35 | NUR ---
RECEIVED PT ON PRONE POSITION, EASILY AROUSABLE, ON HIGH FLOW O2 VIA NRB MASK AT 30L, SAT-90%, NO RESP DISTRESS NOTED, IVF AT TKO RATE INFUSING WELL VIA LT UA PICC LINE, MAINTAINED ON DROPLET PRECAUTION FOR COVID POSITIVE, PLAN OF CARE DISCUSSED, CALL LIGHT WITHIN REACH.
[2020-08-20 20:00] VITALS: BP 122/70
--- NOTE | 2020-08-20 20:50 | NUR ---
1930 RECEIVED PATIENT ON 100% FIO2 VIA NRB MASK AT 15L FLUSH. SATS WERE 83%. PLACED PATIENT BACK ON HIGH FLOW AT 30LITERS AT 100% FIO2 ALONG WITH THE NRB MASK. PATIENTS SATS IMPROVED TO 90%. PT POLISH SPEAKING ONLY.
[2020-08-21] VITALS: BP 119/77
--- NOTE | 2020-08-21 | NUR ---
PT SLEEPING ON SUPINE POSITION, EASILY AROUSABLE, NO RESP DISTRESS NOTED, AWAITING AVAILABILITY OF PLASMA CONVALESCENT, CONTINUE ON HIGH FLOW O2 VIA NRB MASK AT 30L, SAT-90%, MONITORED CLOSELY.
--- NOTE | 2020-08-21 00:40 | NUR ---
1 UNIT PLASMA CONVALESCENT STARTED, VITAL SIGNS PER PROTOCOL, MONITORED CLOSELY FOR REACTION.
[2020-08-21] MEDS: ENOXAPARIN 120 MG/0.8 ML SYR SUBQ SCH ×2 (00:51→13:27)
[2020-08-21] MEDS: ALBUTEROL SULFATE/IPRATROPIU 3 ML SOL IH SCH ×3 (01:00→13:00)
--- NOTE | 2020-08-21 01:10 | NUR ---
PT SEEN ON A PRONE POSITION, EASILY AROUSABLE, VITAL SIGNS STABLE, SAT-94-96% ON PRONE POSITION,PLASMA CONVALESCENT INFUSING WELL, NO REACTION NOTED, MONITORED CLOSELY.
--- NOTE | 2020-08-21 02:00 | NUR ---
PT SEEN AWAKE ON HIGH FOWLERS POSITION, PLASMA TRANSFUSION DONE, VITAL SIGNS STABLE, NO REACTION NOTED, SAT-89% ON HIGH FLOW O2 VIA NRB MASK AT 30L, NO RESP DISTRESS NOTED, RESUMED IVF AT TKO RATE, MONITORED CLOSELY.
[2020-08-21 04:00] VITALS: BP 127/67
--- NOTE | 2020-08-21 05:20 | NUR ---
PT SEEN WITH SAT OF 77-78%, COILN RT MADE AWARE AND INCREASED THE HIGH FLOW O2 TO MAX RATE OF 40L, SAT WENT UP TO 83-85%, PT SLEEPING, EASILY AROUSABLE, NO RESP DISTRESS NOTED, MONITORED CLOSELY.
[2020-08-21] MEDS: LEVOTHYROXINE 0.075 MG TAB PO SCH (06:19)
--- NOTE | 2020-08-21 06:20 | NUR ---
PT SLEEPING, DUE SYNTHROID TAKEN, ENCOURAGE TO PRONE BUT STATED LATER, PT WENT BACK TO SLEEP, NO RESP DISTRESS NOTED, MONITORED CLOSELY.
[2020-08-21 07:01] LABS: BASOPHILS % (AUTO) 0.1 % (0.0-2.0); EOSINOPHILS % (AUTO) 0.1 % (0.0-4.0); HEMATOCRIT 37.8 % (36-52); HEMOGLOBIN 12.7 g/dL (12.0-18.0); LYMPHOCYTES # (AUTO) 0.6 K/uL (2.0-11.5); LYMPHOCYTES % (AUTO) 5.6 % (20.5-51.1); MEAN CORPUSCULAR HEMOGLOBIN 39 pg (27-31); MEAN CORPUSCULAR HGB CONC 34 g/dL (33-37); MONOCYTES # (AUTO) 0.8 K/uL (0.8-1.0); MONOCYTES % (AUTO) 7.3 % (1.7-9.3); NEUTROPHILS # (AUTO) 9.1 K/uL (1.8-7.7); NEUTROPHILS % (AUTO) 86.9 % (42.2-75.2); PLATELET COUNT (AUTO) 349 K/uL (140-450); RED BLOOD CELL COUNT(AUTO) 3.29 MIL/uL (4.20-6.10); WHITE BLOOD COUNT (AUTO) 10.5 K/uL (4.8-10.8)
--- NOTE | 2020-08-21 07:20 | NUR ---
PT SLEEPING, NO SIGNS OF DISTRESS, REPORT GIVEN TO CHAR FOR CONTINUITY OF CARE.
--- NOTE | 2020-08-21 07:22 | NUR ---
RECEIVED REPORT FROM NIGHT NURSE FOR CONTINUITY OF CARE, PT IS STABLE, PT ASLEEP, PT IS KOSOVAN SPEAKING. PT HAS LEFT UA PICC LINE INFUSING NS AT 10ML/H, SKIN INTACT. PT RECEIVED CONVALESCENT PLASMA LAST NIGHT. SAFETY MEASURES IN PLACE, CALL LIGHT WITHIN REACH. WILL CONTINUE TO MONITOR.
[2020-08-21 07:50] LABS: ALBUMIN 2.3 g/dL (3.4-5.0); ANION GAP 12.4 (8-16); CARBON DIOXIDE 29.2 mmol/L (21-32); CREATININE 0.7 mg/dL (0.6-1.3); POTASSIUM 4.6 mmol/L (3.5-5.1); TOTAL BILIRUBIN 0.5 mg/dL (0.0-1.0)
[2020-08-21 08:00] VITALS: BP 114/66
[2020-08-21] MEDS: ASCORBIC ACID 500 MG TAB PO SCH (08:49)
[2020-08-21] MEDS: ZINC SULF 220 MG CAP PO SCH (08:50)
[2020-08-21] MEDS: PANTOPRAZOLE 40 MG TABEC PO SCH (08:50)
--- NOTE | 2020-08-21 09:01 | NUR ---
ADMINISTERED SCHEDULED MEDICATION, MEDICATION EDUCATION PROVIDED, PT TOLERATED WELL. PT IS STABLE, CALL LIGHT WITHIN REACH, WILL CONTINUE TO MONITOR.
--- NOTE | 2020-08-21 11:00 | NUR ---
ROUNDING ON PT, PT SITTING IN BED, PT IS STABLE, WILL CONTINUE TO MONITOR
[2020-08-21 12:00] VITALS: BP 125/56
[2020-08-21] MEDS: REMDESIVIR (EUA) 100 MG in NACL 0.9% 100 ML IV SCH (13:28)
--- NOTE | 2020-08-21 13:31 | NUR ---
ADMINISTERED SCHEDULED MEDICATION, MEDICATION EDUCATION PROVIDED, PT TOLERATED WELL. PT IS STABLE, WILL CONTINUE TO MONITOR.
--- NOTE | 2020-08-21 15:30 | NUR ---
ROUNDING ON PT, PT SIDE LAYING IN BED, PT IS STABLE, WILL CONTINUE TO MONITOR.
--- NOTE | 2020-08-21 15:51 | NUR ---
08/21/20 RD FOLLOW UP COMPLETED PLEASE REFER TO NUTRITION ASSESSMENT UNDER CARE ACTIVITY FOR ESTIMATED NUTRITIONAL NEEDS. 1. CONTINUE REGULAR DIET TOLERATED 2. CONTINUE ENSURE TID 3. ENCOURAGE PO INTAKE 4. RD TO FOLLOW-UP 3-5 DAYS, MODERATE RISK ALBA MEYER, RD
[2020-08-21 16:00] VITALS: BP 122/65
--- NOTE | 2020-08-21 18:30 | NUR ---
PT ASKING TO HAND HIM HIS CELLPHONE. HANDED PT THE PHONE. PT IS STABLE, WILL CONTINUE TO MONITOR.
--- NOTE | 2020-08-21 19:30 | NUR ---
ENDORSE PT TO NIGHT NURSE FOR CONTINUITY OF CARE, PT IS STABLE
--- NOTE | 2020-08-21 19:31 | NUR ---
RECEIVED ENDORSEMENT FROM AM SHIFT RN. PT IS EATING, ALERT AND ORIENTED X4, NO SOB, NO DISTRESS, ON HI FLOW O2 AND 15L NRM, AMBULATORY, USES URINAL, DROPLET PRECAUTION IN PLACE, SAFETY MEASURES IN PLACE, PLAN OF CARE DISCUSSED, CALL LIGHT WITHIN REACH.
[2020-08-21 20:00] VITALS: BP 107/66
--- NOTE | 2020-08-21 20:41 | NUR ---
CHECKED PT, STATES THAT HE'S OK, NO SOB, ENCOURAGE TO LIE ON PRONE POSITION, PT VERBALIZED UNDERSTANDING, CALL LIGHT WITHIN REACH.
[2020-08-22] VITALS: BP 102/51
[2020-08-22] MEDS: ENOXAPARIN 120 MG/0.8 ML SYR SUBQ SCH ×2 (00:20→13:37)
--- NOTE | 2020-08-22 00:30 | NUR ---
CHECKED PT, ON PRONE POSITION, GAVE DUE MED ORDERED, TOLERATED WELL, NO DISTRESS, NO SOB, DROPLET PRECAUTION OBSERVED AT ALL TIMES, CALL LIGHT WITHIN REACH.
--- NOTE | 2020-08-22 02:00 | NUR ---
PT ASLEEP, NOTED CHEST RISE, NO SOB, CALL LIGHT WITHIN REACH.
[2020-08-22 04:00] VITALS: BP 120/70
--- NOTE | 2020-08-22 04:40 | NUR ---
CHECKED PT. AWAKE, WATCHING TV, NO SOB, FIXED/REPLACED THE TELE MONITOR PATCH, ALL NEEDS ATTENDED, CALL LIGHT WITHIN REACH.
[2020-08-22] MEDS: LEVOTHYROXINE 0.075 MG TAB PO SCH (05:38)
--- NOTE | 2020-08-22 05:38 | NUR ---
DUE MEDS GIVEN ORDERED, TOLERATED WELL, NO SOB, CALL LIGHT WITHIN REACH.
[2020-08-22 06:10] LABS: BASOPHILS % (AUTO) 0.1 % (0.0-2.0); EOSINOPHILS % (AUTO) 0.2 % (0.0-4.0); HEMATOCRIT 37.5 % (36-52); HEMOGLOBIN 12.6 g/dL (12.0-18.0); LYMPHOCYTES # (AUTO) 0.7 K/uL (2.0-11.5); LYMPHOCYTES % (AUTO) 5.7 % (20.5-51.1); MEAN CORPUSCULAR HEMOGLOBIN 39 pg (27-31); MEAN CORPUSCULAR HGB CONC 34 g/dL (33-37); MEAN CORPUSCULAR VOLUME 114.7 fL (80-94); MONOCYTES # (AUTO) 0.5 K/uL (0.8-1.0); MONOCYTES % (AUTO) 4.3 % (1.7-9.3); NEUTROPHILS # (AUTO) 10.3 K/uL (1.8-7.7); NEUTROPHILS % (AUTO) 89.7 % (42.2-75.2); PLATELET COUNT (AUTO) 349 K/uL (140-450); RED BLOOD CELL COUNT(AUTO) 3.27 MIL/uL (4.20-6.10); RED CELL DISTRIBUTION WIDTH 13.2 % (11.6-13.7); WHITE BLOOD COUNT (AUTO) 11.5 K/uL (4.8-10.8)
[2020-08-22 06:22] LABS: ANION GAP 10.3 (8-16); CARBON DIOXIDE 32.7 mmol/L (21-32); CREATININE 0.8 mg/dL (0.6-1.3)
--- NOTE | 2020-08-22 06:57 | NUR ---
PT IS IN STABLE CONDITION, CONTINUE ON HI FLOW AND 15L NRM, NO SOB, NO DISTRESS, KEPT CLEAN, DRY AND COMFORTABLE, CALL LIGHT WITHIN REACH.
[2020-08-22] MEDS: ALBUTEROL SULFATE/IPRATROPIU 3 ML SOL IH SCH ×2 (07:00→19:00)
--- NOTE | 2020-08-22 07:40 | NUR ---
REC'D BEDSIDE ENDORSEMENT FROM NIGHTSHIFT NURSE. PATIENT IS RESTING AND STABLE. WILL PROCEED W/ CONTINUITY OF CARE
[2020-08-22 08:00] VITALS: BP 102/69
[2020-08-22] MEDS: PANTOPRAZOLE 40 MG TABEC PO SCH (10:10)
[2020-08-22] MEDS: ZINC SULF 220 MG CAP PO SCH (10:11)
[2020-08-22] MEDS: ASCORBIC ACID 500 MG TAB PO SCH (10:12)
--- NOTE | 2020-08-22 10:17 | NUR ---
ADMINISTERED PRESCRIBED MEDS PER MD ORDER. PATIENT TOLERATED WELL. MEDICATION EDUCATION PROVIDED. PATIENT VERBALIZED UNDERSTANDING. SAFETY MEASURES IN PLACE. WILL CONT TO MONITOR.
--- NOTE | 2020-08-22 11:49 | NUR ---
[facility] RX NOT GIVEN DUE TO RINKU MURRAY
--- NOTE | 2020-08-22 11:53 | NUR ---
Received patient in am, assisted to bed, patient had a large bowel movement, noted with elevated HR 130's. am medication given, high flow on 15 liters venti mask. patient is on his side, blood pressure stable. will inform Dr. Aguilar of tachycardia. will monitor,
[2020-08-22 12:00] VITALS: BP 109/59
--- NOTE | 2020-08-22 12:08 | NUR ---
NOTIFIED PATIENT SINUS TACH THIS MORNING. REC'D VERBAL ORDER FOR EKG. ORDER PLACED. PATIENT IS IN BED RESTING. DENIES PAIN. ABLE TO MAKE NEEDS KNOWN. SAFETY MEASURES IN PLACE. WILL CONT TO MONITOR.
--- NOTE | 2020-08-22 12:53 | NUR ---
PATIENT HIGH FLOW O2 MACHINE OUT OF WATER. CONTACTED RT FOR SERVICE. PATIENT DENIES PAIN, NO SIGNS OF DISTRESS, NOON SP02 91%. SAFETY MEASURES IN PLACE. WILL CONT TO MONITOR.
--- NOTE | 2020-08-22 13:45 | NUR ---
ADMINISTERED PRESCRIBED MEDS PER MD ORDER. PATIENT TOLERATED WELL. DENIES PAIN/SOB. SAFETY MEASURES IN PLACE. WILL CONT TO MONITOR.
--- NOTE | 2020-08-22 14:59 | NUR ---
REC'D PHONE CALL FROM SON YANN, GAVE UPDATE ON PATIENT TODAY. HOURLY ROUND PEFORMED AND PATIENT IS RESTING IN BED, NO SIGNS OF DISTRESS. SAFETY MEASURES IN PLACE. WILL CONT TO MONITOR.
[2020-08-22 16:00] VITALS: BP 123/54
--- NOTE | 2020-08-22 18:21 | NUR ---
HOURLY ROUNDING PERFORMED ON PATIENT. PATIENT LYING ON R SIDE, O2 SAT 93%. NO SIGNS OF DISTRESS. SAFETY MEASURES IN PLACE. WILL CONT TO MONITOR.
--- NOTE | 2020-08-22 19:23 | NUR ---
PATIENT ENDORSED TO NIGHTSHIFT NURSE FOR CONTINUITY OF CARE. PATIENT IS STABLE.
[2020-08-22 20:00] VITALS: BP_SYST 11; BP_SYST 111; BP_DIAS 74
--- NOTE | 2020-08-22 23:10 | NUR ---
received pt in stable condition on bed.resp.unlabored.tele is on and showing sr.call light in reach.no c/o pain or sob now.will continue monitoring.vs stable.
[2020-08-23] VITALS: BP 110/73
--- NOTE | 2020-08-23 | NUR ---
RESP.UNLABORED W/O2.VS STABLE.NO DISTRESS NOTED AT PRESENT TIME.CALL LIGHT IN REACH.
[2020-08-23] MEDS: ALBUTEROL SULFATE/IPRATROPIU 3 ML SOL IH SCH ×4 (01:00→19:00)
[2020-08-23] MEDS: ENOXAPARIN 120 MG/0.8 ML SYR SUBQ SCH ×2 (01:50→13:34)
[2020-08-23 04:00] VITALS: BP 118/71
--- NOTE | 2020-08-23 04:12 | NUR ---
SLEEPING W/O ANY SIGN OF DISTRESS.CALL LIGHT IN REACH.
[2020-08-23] MEDS: LEVOTHYROXINE 0.075 MG TAB PO SCH (06:02)
[2020-08-23 07:14] LABS: BASOPHILS % (AUTO) 0.1 % (0.0-2.0); HEMATOCRIT 38.9 % (36-52); LYMPHOCYTES # (AUTO) 0.5 K/uL (2.0-11.5); LYMPHOCYTES % (AUTO) 3.9 % (20.5-51.1); MEAN CORPUSCULAR HEMOGLOBIN 38 pg (27-31); MEAN CORPUSCULAR HGB CONC 33 g/dL (33-37); MEAN CORPUSCULAR VOLUME 114.8 fL (80-94); MONOCYTES # (AUTO) 0.5 K/uL (0.8-1.0); MONOCYTES % (AUTO) 3.8 % (1.7-9.3); NEUTROPHILS # (AUTO) 11.7 K/uL (1.8-7.7); NEUTROPHILS % (AUTO) 92.2 % (42.2-75.2); PLATELET COUNT (AUTO) 349 K/uL (140-450); RED BLOOD CELL COUNT(AUTO) 3.38 MIL/uL (4.20-6.10); RED CELL DISTRIBUTION WIDTH 13.2 % (11.6-13.7); WHITE BLOOD COUNT (AUTO) 12.7 K/uL (4.8-10.8)
[2020-08-23 07:29] LABS: ANION GAP 9.9 (8-16); CARBON DIOXIDE 33.3 mmol/L (21-32); CREATININE 0.9 mg/dL (0.6-1.3); POTASSIUM 5.2 mmol/L (3.5-5.1)
--- NOTE | 2020-08-23 07:30 | NUR ---
RECEIVED PT RESTING COMFORTABLY. NO SOB NOTED. NO SIGNS OF PAIN AT THIS TIME. WILL MONITOR PT.
--- NOTE | 2020-08-23 07:42 | NUR ---
ENDORSED TO AM RN .PT'S CONDITION IS STABLE.NO SOB ,NO PAIN NOTED.
[2020-08-23 08:00] VITALS: BP 114/60
[2020-08-23] MEDS: ZINC SULF 220 MG CAP PO SCH (10:10)
[2020-08-23] MEDS: PANTOPRAZOLE 40 MG TABEC PO SCH (10:10)
[2020-08-23] MEDS: ASCORBIC ACID 500 MG TAB PO SCH (10:11)
--- NOTE | 2020-08-23 10:30 | NUR ---
PT AWAKE, TALKING ON THE PHONE. NO SOB NOTED, STILL ON HIGH FLOW WITH 90-93% OXYGEN SATURATIONS.
[2020-08-23 12:00] VITALS: BP 152/76
[2020-08-23] MEDS ORDERED: FUROSEMIDE 20 MG/2 ML VIAL IVP SCH (14:10)
--- NOTE | 2020-08-23 15:20 | NUR ---
PT ON PRONE POSITION INSTRUCTED. NO SOB NOTED. NO SIGNS OF PAIN. WILL CONTINUE TO MONITOR.
[2020-08-23 16:00] VITALS: BP 117/65
--- NOTE | 2020-08-23 19:00 | NUR ---
PT RESTING. N0 SOB NOTED. NO SIGNS OF PAIN AT THIS TIME. WILL ENDORSE TO NEXT SHIFT NURSE FOR CONTINUITY OF CARE.
[2020-08-23 20:00] VITALS: BP 119/93
--- NOTE | 2020-08-23 23:42 | NUR ---
RECEIVED REPORT OF PT IN STABLE CONDITION.RESP.UNLABORED W/HIGH FLOW O2.PICC LINE PATENT.LUNGS DIMINISHED. NO C/O PAIN/SOB NOW.CALL LIGHT WITHIN REACH.WILL CONT.MONITORING.
[2020-08-24] VITALS: BP 107/61
[2020-08-24] MEDS: ALBUTEROL SULFATE/IPRATROPIU 3 ML SOL IH SCH ×3 (01:00→13:00)
[2020-08-24] MEDS: ENOXAPARIN 120 MG/0.8 ML SYR SUBQ SCH ×2 (01:11→13:55)
--- NOTE | 2020-08-24 01:58 | NUR ---
SLEEPING.O2 SAT=87.RECHECKED=91% NOW.NO SOB NOTED.WILL CONT.MONITORING.LOVENOX SUB.Q GIVEN.
[2020-08-24 04:00] VITALS: BP 124/64
[2020-08-24] MEDS: LEVOTHYROXINE 0.075 MG TAB PO SCH (06:29)
--- NOTE | 2020-08-24 07:30 | NUR ---
RECEIVED PT ASLEEP, NO SOB NOTED. NO C/O PAIN AT THIS TIME. WILL CONTINUE TO MONITOR.
--- NOTE | 2020-08-24 07:52 | NUR ---
ENDORSED TO AM RN IN STABLE CONDITION.
[2020-08-24 08:00] VITALS: BP 114/71
--- NOTE | 2020-08-24 08:20 | NUR ---
RECEIVED ON A VAPOTHERM HIGH FLOW TO A NASAL CANNULA PLUGGED ONTO RED OUTLET TOLERATING WELL WITHOUT ADVERSE REACTIONS NOTED TO A PARTIAL REBREATHER AT 15 LPM LOC AWAKE AND ALERT IN HFW POSITION
[2020-08-24 09:42] LABS: BASOPHILS % (AUTO) 0.3 % (0.0-2.0); EOSINOPHILS % (AUTO) 0.1 % (0.0-4.0); HEMATOCRIT 42.8 % (36-52); HEMOGLOBIN 14.1 g/dL (12.0-18.0); LYMPHOCYTES # (AUTO) 0.9 K/uL (2.0-11.5); LYMPHOCYTES % (AUTO) 5.4 % (20.5-51.1); MEAN CORPUSCULAR HEMOGLOBIN 38 pg (27-31); MEAN CORPUSCULAR HGB CONC 33 g/dL (33-37); MEAN CORPUSCULAR VOLUME 114.5 fL (80-94); MONOCYTES # (AUTO) 0.5 K/uL (0.8-1.0); MONOCYTES % (AUTO) 3.3 % (1.7-9.3); NEUTROPHILS # (AUTO) 14.4 K/uL (1.8-7.7); NEUTROPHILS % (AUTO) 90.9 % (42.2-75.2); PLATELET COUNT (AUTO) 384 K/uL (140-450); RED BLOOD CELL COUNT(AUTO) 3.74 MIL/uL (4.20-6.10); RED CELL DISTRIBUTION WIDTH 13.6 % (11.6-13.7); WHITE BLOOD COUNT (AUTO) 15.8 K/uL (4.8-10.8)
[2020-08-24 10:17] LABS: FIBRINOGEN 765 mg/dL (200-400)
[2020-08-24 10:27] LABS: ALBUMIN 2.5 g/dL (3.4-5.0); ANION GAP 12.4 (8-16); CARBON DIOXIDE 32.3 mmol/L (21-32); POTASSIUM 4.7 mmol/L (3.5-5.1); TOTAL BILIRUBIN 0.7 mg/dL (0.0-1.0)
[2020-08-24] MEDS: PANTOPRAZOLE 40 MG TABEC PO SCH (10:29)
[2020-08-24] MEDS: ASCORBIC ACID 500 MG TAB PO SCH (10:30)
[2020-08-24] MEDS: ZINC SULF 220 MG CAP PO SCH (10:30)
[2020-08-24 10:45] LABS: D-DIMER 2890 ng/ml (0-400)
[2020-08-24 10:57] LABS: C-REACTIVE PROTEIN QUANT 14.5 mg/dL (0.0-0.9)
[2020-08-24 12:00] VITALS: BP 111/57
--- NOTE | 2020-08-24 13:05 | NUR ---
PT RESTING. NO SOB NOTED. NO COMPLAINTS MADE. ENDORSED CARE TO CHAR-RN IN STABLE CONDITION.
--- NOTE | 2020-08-24 13:20 | NUR ---
RECEIVED REPORT FROM NURSE FOR CONTINUITY OF CARE, PT IS STABLE. PT ON 40% HI-FLOW. PT HAS HARRY PICC SALINE LOCK. WILL CONTINUE TO MONITOR.
--- NOTE | 2020-08-24 13:58 | NUR ---
ADMINISTERED SCHEDULED MEDICATION. MEDICATION EDUCATION PROVIDED, PT VERBALIZED UNDERSTANDING. PT TOLERATED WELL. PT IS STABLE. WILL CONTINUE TO MONITOR.
--- NOTE | 2020-08-24 15:20 | NUR ---
ROUNDING ON PT, PT RESTING IN BED, PT IS STABLE, CONTINUE TO MONITOR
[2020-08-24 16:00] VITALS: BP 119/69
--- NOTE | 2020-08-24 17:00 | NUR ---
ROUNDING ON PT, PT IS STABLE, WILL CONTINUE TO MONITOR.
--- NOTE | 2020-08-24 19:10 | NUR ---
RECEIVED BEDSIDE REPORT FROM DAY SHIFT NURSE FOR CONTINUITY OF CARE. PT IS AWAKE AND ALERT, A&OX4. FRISIAN SPEAKING. ON 40% HIGH FLOW OXYGEN NASAL CANNULA. O2 SAT AT 90%. BREATHING UNLABORED. PT STATES THE OXYGEN FLOW IS TOO HIGH ON SHIFT CHANGE. WILL NOTIFY RT. ON TELE MONITORING. COMMODE AT BEDSIDE FOR VOIDING AND URINAL AT BEDSIDE. SKIN IS WARM, DRY, AND INTACT. LEFT UPPER ARM PICC LINE IN PLACE SALINE LOCKED. PATENT AND FLUSHING. PT IS ON DROPLET PRECAUTIONS IN PLACE FOR COVID POSITIVE RESULT. PT IS STABLE AT THIS TIME. PLAN OF CARE DISCUSSED.
--- NOTE | 2020-08-24 19:30 | NUR ---
RT WAS CALLED TO THE BEDSIDE BECAUSE PT STATES THE OXYGEN IS TOO STRONG. O2 SAT IS 90% ON HIGH FLOW NASAL CANNULA WITH NRB IN PLACE AT 15L. BREATHING IS UNLABORED. RT TO ASSESS AND SPEAK WITH PATIENT.
[2020-08-24 20:00] VITALS: BP 96/58
--- NOTE | 2020-08-24 21:30 | NUR ---
PT IS ASLEEP IN SEMI FOWLERS POSITION. NO RESPIRATORY DISTRESS NOTED. O2 SAT IS 92%. CHEST RISE AND FALL IS SYMMETRICAL. PT EASILY AWOKEN BY NOISE. PT STATES HE WANTS TO EAT DINNER AND TRAY WAS SET UP FOR PT. HE IS NOW POSITIONING HIMSELF AT THE EDGE OF THE BED TO EAT DINNER. EDUCATION WAS GIVEN TO EAT SLOWLY AND PLACE NRB IN BETWEEN EVERY FEW BITES OF FOOD IN ORDER TO KEEP OXYGENATED. PT VERBALIZED UNDERSTANDING. WILL MONITOR OXYGEN LEVEL AND WORK OF BREATHING.
--- NOTE | 2020-08-24 23:30 | NUR ---
PT IS SLEEPING. NO SOB OR COUGHING NOTED. O2 SAT IS 95%. BREATHING IS UNLABORED. WILL CONTINUE TO MONITOR.
[2020-08-25] VITALS: BP 127/77
--- NOTE | 2020-08-25 | NUR ---
O2 SAT WAS 85% WHEN TAKEN BY [employer]. NONREBREATHER MASK WAS READJUSTED AND O2 SAT IS NOW 90%. PT IS STABLE.
[2020-08-25] MEDS: ENOXAPARIN 120 MG/0.8 ML SYR SUBQ SCH ×2 (01:27→14:17)
--- NOTE | 2020-08-25 01:30 | NUR ---
ROUNDED ON PT. HE IS AWAKE IN BED. STATES HE IS OKAY AT THIS TIME. NO RESPIRATORY DISTRESS APPARENT. PT IS STABLE.
--- NOTE | 2020-08-25 03:30 | NUR ---
O2 SAT IS AT 90% ON HIGH FLOW OXYGEN NASAL CANNULA 40L. NONREBREATHER ALSO IN PLACE WITH 15L FLOWING. PT IS STABLE AT THIS TIME AND ASLEEP.
[2020-08-25 04:00] VITALS: BP 122/76
--- NOTE | 2020-08-25 05:39 | NUR ---
PT IS AWAKE AND NO SIGNS OF RESPIRATORY DISTRESS. WHEN SLEEPING O2 SAT IS AT 89%, ALTHOUGH SOON PT WAKES UP O2 SAT IS 95%. NO LABORED BREATHING. PT STATES HE IS OKAY RIGHT NOW. WATER WAS GIVEN. NEEDS HAVE BEEN MET.
[2020-08-25] MEDS: LEVOTHYROXINE 0.075 MG TAB PO SCH (06:05)
[2020-08-25 06:47] LABS: ANION GAP 11.7 (8-16); CARBON DIOXIDE 30.6 mmol/L (21-32); CREATININE 0.9 mg/dL (0.6-1.3); POTASSIUM 5.3 mmol/L (3.5-5.1)
[2020-08-25 07:05] LABS: BASOPHILS % (AUTO) 0.2 % (0.0-2.0); HEMATOCRIT 39.9 % (36-52); HEMOGLOBIN 13.4 g/dL (12.0-18.0); LYMPHOCYTES # (AUTO) 0.4 K/uL (2.0-11.5); LYMPHOCYTES % (AUTO) 3.5 % (20.5-51.1); MEAN CORPUSCULAR HEMOGLOBIN 38 pg (27-31); MEAN CORPUSCULAR HGB CONC 34 g/dL (33-37); MEAN CORPUSCULAR VOLUME 113.9 fL (80-94); MONOCYTES # (AUTO) 0.4 K/uL (0.8-1.0); MONOCYTES % (AUTO) 2.9 % (1.7-9.3); NEUTROPHILS # (AUTO) 11.4 K/uL (1.8-7.7); NEUTROPHILS % (AUTO) 93.4 % (42.2-75.2); PLATELET COUNT (AUTO) 326 K/uL (140-450); RED BLOOD CELL COUNT(AUTO) 3.51 MIL/uL (4.20-6.10); RED CELL DISTRIBUTION WIDTH 13.4 % (11.6-13.7); WHITE BLOOD COUNT (AUTO) 12.2 K/uL (4.8-10.8)
--- NOTE | 2020-08-25 07:12 | NUR ---
RECEIVED REPORT FROM NIGHT NURSE FOR CONTINUITY OF CARE. PT IS ASLEEP, PT ON 40% HI-FLOW NC WITH 15L NON-REBREATHER AND SATING AT 89%. PT HAS HARRY PICC LINE, SALINE LOCK. SKIN INTACT. CALL LIGHT WITHIN REACH, WILL CONTINUE TO MONITOR.
--- NOTE | 2020-08-25 07:20 | NUR ---
ENDORSED PT TO DAY SHIFT NURSE FOR CONTINUITY OF CARE. PT IS STABLE AT THIS TIME. PLAN OF CARE DISCUSSED.
[2020-08-25 08:00] VITALS: BP 117/70
--- NOTE | 2020-08-25 08:31 | NUR ---
PAGED DR GALE TO REPORT POTASSIUM OF 5.3,
[2020-08-25 09:06] LABS: HEPATITIS B SURFACE ANTIBODY Non Reactive (.)
--- NOTE | 2020-08-25 09:59 | NUR ---
DR GALE RETURNED PAGED. REPORTED PT HAS POTASSIUM 5.3, RECEIVED TORB TO CHECK BNP AT 1500 AND TO NOTIFY NEPHRO.
[2020-08-25] MEDS: ASCORBIC ACID 500 MG TAB PO SCH (10:09)
[2020-08-25] MEDS: ZINC SULF 220 MG CAP PO SCH (10:09)
[2020-08-25] MEDS: PANTOPRAZOLE 40 MG TABEC PO SCH (10:09)
--- NOTE | 2020-08-25 10:14 | NUR ---
ADMINISTERED SCHEDULED MEDICATION, MEDICATION EDUCATION PROVIDED. PT VERBALIZED UNDERSTANDING, PT TOLERATED WELL. PT IS STABLE, WILL CONTINUE TO MONITOR.
[2020-08-25 12:00] VITALS: BP 110/64
[2020-08-25] MEDS ORDERED: bisacodyL 5 MG TABEC PO PRN (13:45)
--- NOTE | 2020-08-25 14:23 | NUR ---
ADMINISTERED SCHEDULED MEDICATION, MEDICATION EDUCATION PROVIDED. PT TOLERATED WELL. PT IS STABLE, WILL CONTINUE TO MONITOR,.
--- NOTE | 2020-08-25 14:56 | NUR ---
NOTIFIED DR GALE PT HAS BNP 2320, RECEIVED TORB FOR LASIX 20MG TID IVP
[2020-08-25 16:00] VITALS: BP 104/74
[2020-08-25] MEDS: FUROSEMIDE 20 MG/2 ML VIAL IVP SCH (17:56)
--- NOTE | 2020-08-25 17:57 | NUR ---
ADMINISTERED SCHEDULED MEDICATION, MEDICATION EDUCATION PROVIDED, PT TOLERATED WELL. PT IS STABLE, WILL CONTINUE TO MONITOR.
--- NOTE | 2020-08-25 19:25 | NUR ---
ENDORSE PT TO NIGHT NURSE FOR CONTINUITY OF CARE, PT IS STABLE.
--- NOTE | 2020-08-25 19:25 | NUR ---
RECEIVED BEDSIDE REPORT FROM DAY SHIFT NURSE FOR CONTINUITY OF CARE. PT IS AWAKE AND ALERT, LAYING IN SEMI FOWLERS POSITION. A&OX4. HIGH FLOW OXYGEN NC AT 40% AND NRB AT 15L O2. URINAL AT THE BEDSIDE WITHIN REACH AND BEDSIDE COMMODE ACCESSIBLE. PT INSTRUCTED TO CALL WHEN NEEDING ASSISTANCE. SKIN IS WARM, DRY, AND INTACT. LAST BM TODAY / PER DAY SHIFT NURSE. LEFT UPPER ARM PICC LINE IN PLACE SL. DROPLET PRECAUTION IN PLACE FOR COVID POSITIVE. PLAN OF CARE DISCUSSED. PT IS STABLE.
[2020-08-25 20:00] VITALS: BP 104/59
[2020-08-25] MEDS ORDERED: POLYETHYLENE GLYCOL 17 GM/PKT PO SCH (21:00)
--- NOTE | 2020-08-25 21:30 | NUR ---
PT IS UP TO THE BEDSIDE COMMODE. PT WAS ABLE TO AMBULATE INDEPENDENTLY TO COMMODE WITH STANDBY ASSISTANCE. ANOTHER BLANKET WAS ALSO GIVEN TO PT AND WATER WAS PROVIDED. PT IS STABLE AT THIS TIME. O2 SAT IS 94% AND BREATHING IS UNLABORED.
[2020-08-25] MEDS: POLYETHYLENE GLYCOL 17 GM/PKT PO SCH (21:52)
--- NOTE | 2020-08-25 22:00 | NUR ---
CALLED RT TO THE BEDSIDE TO ATTEMPT TO WEAN PT OFF OXYGEN. ATTEMPTED TO TAKE THE PT OFF THE NONREBREATHER AND LEAVE ONLY THE 40L OF HIGH FLOW OXYGEN. PT O2 SAT WAS 84% WITHOUT THE NRB. NRB WAS PLACED BACK ON PT. WILL ATTEMPT TO WEAN OFF OXYGEN ON HIGH FLOW LATER. PT IS NOW AT 94% O2 SAT WITH BOTH THE NRB AND HIGH FLOW OXYGEN.
[2020-08-26] VITALS: BP 97/59
--- NOTE | 2020-08-26 | NUR ---
ROUNDED ON PT. HE IS AWAKE AND ALERT, LAYING IN BED. NO RESPIRATORY DISTRESS NOTED. PT APPEARS TO BE COMFORTABLE. PT STATED HE DID NOT NEED ANYTHING AT THIS TIME. O2 SAT IS 92%. BREATHING IS UNLABORED. WILL CONTINUE TO MONITOR.
[2020-08-26] MEDS: ENOXAPARIN 120 MG/0.8 ML SYR SUBQ SCH ×2 (00:54→13:47)
--- NOTE | 2020-08-26 01:47 | NUR ---
PT IS ASLEEP. NO DISTRESS OR SOB NOTED. O2 SAT IS 94% ON HIGH FLOW OXYGEN NC AND NRB MASK. WILL CONTINUE TO MONITOR.
[2020-08-26 04:00] VITALS: BP 99/64
--- NOTE | 2020-08-26 04:20 | NUR ---
PT IS UP TO THE BEDSIDE COMMODE. PT DID NOT HAVE A BM. PT FELT THE URGE BUT WAS NOT ABLE TO HAVE A BM. PT IS NOW BACK IN BED. O2 SAT IS 90% AND WORK OF BREATHING IS UNLABORED.
[2020-08-26] MEDS: LEVOTHYROXINE 0.075 MG TAB PO SCH (05:31)
--- NOTE | 2020-08-26 05:51 | NUR ---
PT AWAKE AND ALERT. SPEAKING APPROPRIATELY. BEDSIDE COMMODE WAS EMPTIED OF A BM. PT IS IN BED RESTING. O2 SAT AT 92%.
--- NOTE | 2020-08-26 07:10 | NUR ---
RECEIVED REPORT FROM NIGHT NURSE FOR CONTINUITY OF CARE. PT IS ASLEEP, PT ON 40L HI-FLOW NC AND 15L NON-REBREATHER. PT HAS HARRY PICC SALINE LOCK. SKIN INTACT. PT IS STABLE, SAFETY MEASURES IN PLACE. WILL CONTINUE TO MONITOR.
--- NOTE | 2020-08-26 07:25 | NUR ---
ENDORSED PT TO DAY SHIFT NURSE FOR CONTINUITY OF CARE. PT IS STABLE AT THIS TIME. O2 SAT IS 90% AND WORK OF BREATHING IS UNLABORED. PLAN OF CARE DISCUSSED.
[2020-08-26 08:00] VITALS: BP 119/82
[2020-08-26] MEDS: PANTOPRAZOLE 40 MG TABEC PO SCH (09:57)
[2020-08-26] MEDS: ASCORBIC ACID 500 MG TAB PO SCH (09:58)
[2020-08-26] MEDS: POLYETHYLENE GLYCOL 17 GM/PKT PO SCH ×2 (09:58→21:00)
[2020-08-26] MEDS: FUROSEMIDE 20 MG/2 ML VIAL IVP SCH ×3 (10:00→17:34)
--- NOTE | 2020-08-26 10:07 | NUR ---
ADMINISTERED SCHEDULED MEDICATION, MEDICATION EDUCATION PROVIDED. PT TOLERATED WELL. PT IS STABLE. WILL CONTINUE TO MONITOR.
[2020-08-26 12:00] VITALS: BP 106/62
[2020-08-26] MEDS: ALBUTEROL SULFATE/IPRATROPIU 3 ML SOL IH SCH ×2 (13:00→19:00)
[2020-08-26] MEDS: ZINC SULF 220 MG CAP PO SCH (13:45)
[2020-08-26 13:52] LABS: BASOPHILS % (AUTO) 0.1 % (0.0-2.0); EOSINOPHILS % (AUTO) 0.1 % (0.0-4.0); HEMATOCRIT 43.3 % (36-52); HEMOGLOBIN 14.2 g/dL (12.0-18.0); LYMPHOCYTES # (AUTO) 0.3 K/uL (2.0-11.5); LYMPHOCYTES % (AUTO) 1.9 % (20.5-51.1); MEAN CORPUSCULAR HEMOGLOBIN 37 pg (27-31); MEAN CORPUSCULAR HGB CONC 33 g/dL (33-37); MEAN CORPUSCULAR VOLUME 113.5 fL (80-94); MONOCYTES # (AUTO) 0.6 K/uL (0.8-1.0); MONOCYTES % (AUTO) 3.6 % (1.7-9.3); NEUTROPHILS # (AUTO) 16.5 K/uL (1.8-7.7); NEUTROPHILS % (AUTO) 94.3 % (42.2-75.2); PLATELET COUNT (AUTO) 377 K/uL (140-450); RED BLOOD CELL COUNT(AUTO) 3.82 MIL/uL (4.20-6.10); RED CELL DISTRIBUTION WIDTH 13.1 % (11.6-13.7); WHITE BLOOD COUNT (AUTO) 17.4 K/uL (4.8-10.8)
--- NOTE | 2020-08-26 13:54 | NUR ---
ADMINISTERED SCHEDULED MEDICATION, MEDICATION EDUCATION PROVIDED, PT TOLERATED WELL. PT IS STABLE, WILL CONTINUE TO MONITOR.
[2020-08-26 14:35] LABS: ALBUMIN 2.3 g/dL (3.4-5.0); ANION GAP 11.8 (8-16); CARBON DIOXIDE 30.5 mmol/L (21-32); CREATININE 0.9 mg/dL (0.6-1.3); MAGNESIUM 2.2 mg/dL (1.8-2.4); POTASSIUM 4.3 mmol/L (3.5-5.1); TOTAL BILIRUBIN 0.6 mg/dL (0.0-1.0)
[2020-08-26 16:00] VITALS: BP 109/60
--- NOTE | 2020-08-26 17:32 | NUR ---
08/26/20 RD FOLLOW UP COMPLETED PLEASE REFER TO NUTRITION PROGRESS NOTE UNDER CARE ACTIVITY FOR ESTIMATED NUTRITION NEEDS. RD RECOMMENDATIONS: 1. CONTINUE REGULAR DIET TOLERATED 2. CONTINUE ENSURE TID 3. RD TO FOLLOW-UP 3-5 DAYS, MODERATE RISK NEHA VÁZQUEZ MBA, RD
--- NOTE | 2020-08-26 17:39 | NUR ---
ADMINISTERED SCHEDULED MEDICATION, MEDICATION EDUCATION PROVIDED. PT TOLERATED WELL, PT IS STABLE, WILL CONTINUE TO MONITOR.
--- NOTE | 2020-08-26 19:29 | NUR ---
RECEIVED REPORT FROM CHAR RN DAYSHIFT NURSE FO CONTINUITY OF CARE, PT IN STABLE CONDITION.
[2020-08-26 20:00] VITALS: BP 126/84
--- NOTE | 2020-08-26 20:00 | NUR ---
PT LYING IN BED AOX4, HE HAS A HI FLOW N/C AND A 15 LITER NON REBREATHER IN PLACE. V/S FOLLOWS; T 97.5 P 104 R 20 B/P 126/84 02 91%. PT HAS NO C/O VOICED AT THIS TIME. ALL UNIVERSAL FALLS PREVENTION IN PLACE.
--- NOTE | 2020-08-26 21:30 | NUR ---
PT OFFERED ORDERED MIRALAX, PT DECLINED SAYING THAT HE POOP 1/2 HR AGO AND HAD A PREVIOUS POOP ON DAYSHIFT. EXPLAINED PURPOSE AND SIDE EFFECTS OF MEDICATION. PT SAID THAT HE WASN'T EATING MUCH AND IS NOT HAVING TROUBLE WITH BM AT THIS TIME AND DOESN'T WANT TO LEO WITH POOPING TO MUCH. PT REMINDED ABOUT STRICT I AND O ORDER, AND PT ACKNOWLEDGED UNDERSTANDING. ALL UNIVERSAL FALLS PREVENTION IN PLACE.
[2020-08-27] VITALS: BP 106/66
--- NOTE | 2020-08-27 | NUR ---
PT IN BED ASLEEP ALL SUPPLEMENTAL 02 RUNNING ORDERED. STATING 90%. V/S STABLE.
[2020-08-27] MEDS: ALBUTEROL SULFATE/IPRATROPIU 3 ML SOL IH SCH ×4 (01:00→19:00)
[2020-08-27] MEDS: ENOXAPARIN 120 MG/0.8 ML SYR SUBQ SCH ×2 (01:00→14:07)
[2020-08-27 04:00] VITALS: BP 118/70
[2020-08-27] MEDS: LEVOTHYROXINE 0.075 MG TAB PO SCH (05:31)
--- NOTE | 2020-08-27 06:00 | NUR ---
PT GIVEN ORDERED SYNTHROID. ORAL INTACT WAS 250 WITH `1 SMALL BM, AND OUTPUT WAS 450. ALL REQUESTED NEEDS ATTENDED. ALL ORDERED PROTOCOL IN PLACE.
[2020-08-27 06:53] LABS: BASOPHILS % (AUTO) 0.1 % (0.0-2.0); HEMATOCRIT 40.8 % (36-52); HEMOGLOBIN 13.7 g/dL (12.0-18.0); LYMPHOCYTES # (AUTO) 0.5 K/uL (2.0-11.5); MEAN CORPUSCULAR HEMOGLOBIN 38 pg (27-31); MEAN CORPUSCULAR HGB CONC 34 g/dL (33-37); MEAN CORPUSCULAR VOLUME 113.3 fL (80-94); MONOCYTES # (AUTO) 0.5 K/uL (0.8-1.0); MONOCYTES % (AUTO) 3.9 % (1.7-9.3); NEUTROPHILS # (AUTO) 12.3 K/uL (1.8-7.7); PLATELET COUNT (AUTO) 347 K/uL (140-450); RED CELL DISTRIBUTION WIDTH 13.3 % (11.6-13.7); WHITE BLOOD COUNT (AUTO) 13.4 K/uL (4.8-10.8)
[2020-08-27 07:43] LABS: ALBUMIN 2.1 g/dL (3.4-5.0); ANION GAP 9.8 (8-16); CARBON DIOXIDE 34.7 mmol/L (21-32); CREATININE 0.8 mg/dL (0.6-1.3); MAGNESIUM 2.3 mg/dL (1.8-2.4); POTASSIUM 4.5 mmol/L (3.5-5.1); TOTAL BILIRUBIN 0.6 mg/dL (0.0-1.0)
[2020-08-27 08:00] VITALS: BP 122/66
--- NOTE | 2020-08-27 08:00 | NUR ---
RECEIVED REPORT FROM MANAGER DIVISION FOR CONTINUITY OF CARE. PATIENT IS ALERT AWAKE PRIENTED X4, NOT IN ANY DISTRESS NOTED. ON MONITOR SHOWS SR. SL ON THE HARRY PICC LINE DRY AND INTACT. O2 SAT ON 94% HIGH FLOW. NO C/O PAIN AND SOB. NEEDS ATTENDED, WILL CONTINUE TO MONITOR.
[2020-08-27] MEDS: PANTOPRAZOLE 40 MG TABEC PO SCH (09:09)
[2020-08-27] MEDS: ZINC SULF 220 MG CAP PO SCH (09:10)
[2020-08-27] MEDS: ASCORBIC ACID 500 MG TAB PO SCH (09:10)
[2020-08-27] MEDS: POLYETHYLENE GLYCOL 17 GM/PKT PO SCH ×2 (09:11→22:06)
[2020-08-27] MEDS: FUROSEMIDE 20 MG/2 ML VIAL IVP SCH ×3 (09:11→18:09)
--- NOTE | 2020-08-27 09:30 | NUR ---
DUE MEDICATION GIVEN AND TOLERATED WELL. NO SOB NOTED. WILL CONTINUE TO MONITOR.
[2020-08-27 12:00] VITALS: BP 119/63
--- NOTE | 2020-08-27 14:00 | NUR ---
PATIENT RESTING IN BED, DENIES PAIN AND SOB. WILL CONTINUE TO MONITOR.
[2020-08-27 16:00] VITALS: BP 118/70
--- NOTE | 2020-08-27 19:19 | NUR ---
ENDORSED TO THE NEXT SHIFT FOR CONTINUITY OF CARE. IN STABLE CONDITION.
--- NOTE | 2020-08-27 19:20 | NUR ---
RECEIVED REPORT FROM ALEKSEY RNMARIE. PT AOX4 ON 40L HIFLOW, 15L NRB. NO S/S RESPIRATORY DISTRESS. NO C/O PAIN AT THIS TIME. HAS HARRY PICC LINE, PATENT AND INTACT, S.L. SAFETY MEASURES IN PLACE. CALL LIGHT WITHIN REACH. WILL CONTINUE TO MONITOR
[2020-08-27 20:00] VITALS: BP 98/57
--- NOTE | 2020-08-27 22:10 | NUR ---
ADMINISTERED SCHEDULED MED. TOLERATED WELL. WILL CONTINUE TO MONITOR
[2020-08-28] VITALS: BP 117/81
--- NOTE | 2020-08-28 00:10 | NUR ---
PT ASLEEP IN BED. RESPIRATIONS EVEN AND UNLABORED. NO DISTRESS NOTED. WILL CONTINUE TO MONITOR
[2020-08-28] MEDS: ALBUTEROL SULFATE/IPRATROPIU 3 ML SOL IH SCH (01:00)
[2020-08-28] MEDS: ENOXAPARIN 120 MG/0.8 ML SYR SUBQ SCH ×4 (01:08→23:54)
--- NOTE | 2020-08-28 03:20 | NUR ---
PT ASLEEP IN BED. NO DISTRESS NOTED. WILL CONTINUE TO MONITOR
[2020-08-28 04:00] VITALS: BP 96/64
[2020-08-28] MEDS: LEVOTHYROXINE 0.075 MG TAB PO SCH (05:46)
[2020-08-28 06:24] LABS: BASOPHILS % (AUTO) 0.3 % (0.0-2.0); EOSINOPHILS % (AUTO) 0.1 % (0.0-4.0); HEMOGLOBIN 13.7 g/dL (12.0-18.0); MONOCYTES # (AUTO) 0.5 K/uL (0.8-1.0); MONOCYTES % (AUTO) 3.8 % (1.7-9.3); NEUTROPHILS # (AUTO) 11.9 K/uL (1.8-7.7)
[2020-08-28 07:04] LABS: LYMPHOCYTES # (AUTO) 0.7 K/uL (2.0-11.5); LYMPHOCYTES % (AUTO) 5.3 % (20.5-51.1); MEAN CORPUSCULAR HEMOGLOBIN 38 pg (27-31); MEAN CORPUSCULAR HGB CONC 33 g/dL (33-37); MEAN CORPUSCULAR VOLUME 112.5 fL (80-94); NEUTROPHILS % (AUTO) 90.5 % (42.2-75.2); PLATELET COUNT (AUTO) 383 K/uL (140-450); RED BLOOD CELL COUNT(AUTO) 3.64 MIL/uL (4.20-6.10); RED CELL DISTRIBUTION WIDTH 13.3 % (11.6-13.7); WHITE BLOOD COUNT (AUTO) 13.2 K/uL (4.8-10.8)
--- NOTE | 2020-08-28 07:10 | NUR ---
ENDORSED PT TO DAY RN FOR CONTINUITY OF CARE. PT IS IN STABLE CONDITION
--- NOTE | 2020-08-28 07:11 | NUR ---
RECEIVED REPORT FROM FLESHING MACHINE OPERATOR RN FOR CONTINUITY OF CARE. PT AOX4 ON 40L HI FLOW, 15L NRB. NO S/S RESPIRATORY DISTRESS. NO C/O PAIN AT THIS TIME. HARRY PICC LINE IN PLACE, PATENT AND INTACT. NO ACUTE DISTRESS NOTED. SAFETY MEASURES IN PLACE. CALL LIGHT WITHIN REACH. WILL CONTINUE TO MONITOR.
[2020-08-28 08:00] VITALS: BP 94/65
[2020-08-28] MEDS: FUROSEMIDE 20 MG/2 ML VIAL IVP SCH ×3 (09:00→17:27)
[2020-08-28 09:13] LABS: ALBUMIN 2.3 g/dL (3.4-5.0); ANION GAP 7.5 (8-16); CREATININE 0.9 mg/dL (0.6-1.3); MAGNESIUM 2.3 mg/dL (1.8-2.4); POTASSIUM 4.5 mmol/L (3.5-5.1); TOTAL BILIRUBIN 0.9 mg/dL (0.0-1.0)
[2020-08-28] MEDS: ASCORBIC ACID 500 MG TAB PO SCH (09:51)
[2020-08-28] MEDS: POLYETHYLENE GLYCOL 17 GM/PKT PO SCH ×2 (09:51→22:00)
[2020-08-28] MEDS: ZINC SULF 220 MG CAP PO SCH (09:51)
[2020-08-28] MEDS: PANTOPRAZOLE 40 MG TABEC PO SCH (09:51)
--- NOTE | 2020-08-28 09:51 | NUR ---
SCHEDULED MORNING MEDICATIONS GIVEN, LASIX HOLD FOR LOW BP. EDUCATION PROVIDED. PATIENT IS ABLE TO PROPERLY USE INCENTIVE SPIROMETER. ENCOURAGED PATIENT TO TAKE DEEP BREATH AND RELAXATION TECHNIQUE. VERBALIZED UNDERSTANDING. SAFETY MEASURES IN PLACE, CALL LIGHT WITHIN REACH. WILL CONTINUE TO MONITOR.
[2020-08-28 12:00] VITALS: BP 127/77
--- NOTE | 2020-08-28 13:23 | NUR ---
SCHEDULED MEDICATIONS GIVEN, EDUCATION PROVIDED, PATIENT DENIES PAIN OR SOB. COMFORTABLY RESTING IN BED. SAFETY MEASURES IN PLACE, WILL CONTINUE TO MONITOR.
[2020-08-28 16:00] VITALS: BP 119/80
--- NOTE | 2020-08-28 17:32 | NUR ---
LASIX GIVEN VIA IVP, BP 119/80. EDUCATION PROVIDED, ENCOURAGED PATIENT TO TAKE DEEP BREATH. VERBALIZED UNDERSTANDING. SAFETY MEASURES IN PLACE, CALL LIGHT WITHIN REACH. WILL CONTINUE TO MONITOR.
--- NOTE | 2020-08-28 17:43 | NUR ---
LOC AWAKE AND ALERT VERBALLY RESPONSIVE GOOD CHEST RISE AND AERATION THROUGHOUT BILATERAL LUNG HECK AIRWAY PATENT VAPOTHERM 40LPM 100% + NRB 15 LPM
[2020-08-28 20:00] VITALS: BP 103/67
--- NOTE | 2020-08-28 20:13 | NUR ---
ENDORSED PATIENT TO QUALITY ASSURANCE ENGINEER RN FOR CONTINUITY OF CARE. PATIENT IN STABLE CONDITION.
--- NOTE | 2020-08-28 20:31 | NUR ---
REECIEVED PT AA0X4 , NID - O2 SAT WNL , PT . IS ON HIGH FLOW O2 AT 15LPM TOGETHER W/ NC AT 4LPM . IV SITE INTACT AND PATENT . SAFETY MEASURES IN PLACE . PLAN OF CARE DISCUSSED AND VERBALIZE UNDERSTANDING. CALL LIGHT WITHIN REACH , WILL CONT. TO MONITOR
[2020-08-28] MEDS ORDERED: ENOXAPARIN 60 MG/0.6 ML SYR SUBQ ONE (21:49)
--- NOTE | 2020-08-28 21:55 | NUR ---
PT SEEN AND ASSESSED. FOUND PT ON HFNC 40L AND 100% FiO2 WITH SPO2 OF 98%. PT IS TOLERATING WELL. PT IS IN NO RESPIRATORY DISTRESS AT THIS TIME. WILL CONTINUE TO MONITOR PT.
[2020-08-29] VITALS: BP 101/61
--- NOTE | 2020-08-29 | NUR ---
MADE ROUNDS , NO S/SX OF ACUTE DISTRESS. O2 SAT WNL .
[2020-08-29 04:00] VITALS: BP 107/60
--- NOTE | 2020-08-29 04:00 | NUR ---
O2 SAT WNL . NO S/SX OF ACUTE DISTRESS . CALL LIGHT WITHIN REACH .
--- NOTE | 2020-08-29 06:00 | NUR ---
O2 SAT WNL . NO S/SX OF ACUTE DISTRESS
[2020-08-29] MEDS: LEVOTHYROXINE 0.075 MG TAB PO SCH (06:27)
[2020-08-29 07:03] LABS: BASOPHILS % (AUTO) 0.2 % (0.0-2.0); EOSINOPHILS # (AUTO) 0.2 K/uL (0-0.4); EOSINOPHILS % (AUTO) 1.8 % (0.0-4.0); HEMATOCRIT 43.4 % (36-52); HEMOGLOBIN 14.6 g/dL (12.0-18.0); LYMPHOCYTES # (AUTO) 0.9 K/uL (2.0-11.5); LYMPHOCYTES % (AUTO) 7.7 % (20.5-51.1); MEAN CORPUSCULAR HEMOGLOBIN 38 pg (27-31); MEAN CORPUSCULAR HGB CONC 34 g/dL (33-37); MEAN CORPUSCULAR VOLUME 112.8 fL (80-94); MONOCYTES # (AUTO) 0.4 K/uL (0.8-1.0); MONOCYTES % (AUTO) 3.3 % (1.7-9.3); NEUTROPHILS # (AUTO) 10.1 K/uL (1.8-7.7); PLATELET COUNT (AUTO) 379 K/uL (140-450); RED BLOOD CELL COUNT(AUTO) 3.85 MIL/uL (4.20-6.10); RED CELL DISTRIBUTION WIDTH 13.3 % (11.6-13.7); WHITE BLOOD COUNT (AUTO) 11.6 K/uL (4.8-10.8)
--- NOTE | 2020-08-29 07:30 | NUR ---
ENDORSED- PT - STABLE
[2020-08-29 07:40] LABS: ALBUMIN 2.3 g/dL (3.4-5.0); CARBON DIOXIDE 38.1 mmol/L (21-32); CREATININE 0.8 mg/dL (0.6-1.3); MAGNESIUM 2.2 mg/dL (1.8-2.4); POTASSIUM 4.1 mmol/L (3.5-5.1); TOTAL BILIRUBIN 1.2 mg/dL (0.0-1.0)
[2020-08-29 08:00] VITALS: BP_SYST 107; BP_SYST 87; BP_DIAS 56; BP_DIAS 60
[2020-08-29] MEDS: ASCORBIC ACID 500 MG TAB PO SCH (09:00)
[2020-08-29] MEDS: POLYETHYLENE GLYCOL 17 GM/PKT PO SCH ×2 (09:00→21:00)
[2020-08-29] MEDS: ZINC SULF 220 MG CAP PO SCH (09:00)
[2020-08-29] MEDS: PANTOPRAZOLE 40 MG TABEC PO SCH (09:00)
[2020-08-29] MEDS: FUROSEMIDE 20 MG/2 ML VIAL IVP SCH ×3 (09:00→17:00)
--- NOTE | 2020-08-29 09:06 | NUR ---
SCHEDULED MEDICATION GIVEN, EDUCATION PROVIDED. PATIENT VERBALIZED UNDERSTANDING. LASIX HOLD WITH BP 87/56. MIRALAX PATIENT REFUSED DUE TO DAILY BM. PATIENT DENIES PAIN OR DISCOMFORT AT THIS TIME. BREAKFAST TRAY SERVED. SAFETY MEASURES IN PLACE, WILL CONTINUE TO MONITOR.
--- NOTE | 2020-08-29 11:18 | NUR ---
MADE ROUNDS, PATIENT ASLEEP WITH RIGHT LATERAL POSITION, VISIBLE CHEST RISE AND FALLS. SAFETY MEASURES IN PLACE, WILL CONTINUE TO MONITOR.
[2020-08-29 12:00] VITALS: BP 107/60
[2020-08-29] MEDS: ENOXAPARIN 120 MG/0.8 ML SYR SUBQ SCH (13:47)
--- NOTE | 2020-08-29 15:33 | NUR ---
PATIENT SITTING STRAIGHT UP IN BED, USING INCENTIVE SPIROMETER. PATIENT TOLERATED WELL. NO ACUTE RESPIRATORY DISTRESS NOTED. WILL CONTINUE TO MONITOR.
[2020-08-29 16:00] VITALS: BP 99/60
--- NOTE | 2020-08-29 17:24 | NUR ---
LASIX WAS HOLD FOR BP LEVEL 99/60. PATIENT RESTING IN BED WITH NO ACUTE DISTRESS. PATIENT TOLERATED CURRENT OXYGEN SUPPLEMENT WELL. SAFETY MEASURES IN PLACE, WILL CONTINUE TO MONITOR.
--- NOTE | 2020-08-29 19:25 | NUR ---
ENDORSED PATIENT TO REVENUE INTEGRITY ANALYST RN FOR CONTINUITY OF CARE. PATIENT IN STABLE CONDITION.
--- NOTE | 2020-08-29 19:30 | NUR ---
RECEIVED PT AAOX4 , NID - O2 SAT WNL . ON A MASK - O2 SAT WNL . PICC LINE INTACT AND PATENT , ON TELE MONITOR . SAFETY MEASURES IN PLACE . PLAN OF CARE DISCUSSED AND VERBALIZE UNDERSTANDING . WILL CONT. TO MONITOR
[2020-08-29 20:00] VITALS: BP 112/67
--- NOTE | 2020-08-29 21:54 | NUR ---
PT SEEN AND ASSESSED. FOUND PT ON HFNC 40L AND 100% FiO2 PLUS NON REBREATHER 15L WITH SPO2 OF 97% . TITRATED NRB TO 10L. WITH SPO2 OF 92%. PT IS TOLERATING WELL. PT IS IN NO RESPIRATORY DISTRESS AT THIS TIME. WILL CONTINUE TO MONITOR PT.
[2020-08-30] VITALS: BP 86/60
--- NOTE | 2020-08-30 | NUR ---
MADE ROUNDS , NO S/SX OF ACUTE DISTRESS NOTED
[2020-08-30] MEDS: ENOXAPARIN 120 MG/0.8 ML SYR SUBQ SCH ×2 (01:00→13:42)
--- NOTE | 2020-08-30 02:00 | NUR ---
SLEEPING - O2 SAT - 90 TO 91 %. CALL LIGHT WITHIN REACH
[2020-08-30 04:00] VITALS: BP 82/60
--- NOTE | 2020-08-30 04:00 | NUR ---
MADE ROUNDS , W/ O2 SAT 90 % - WILL CONT. TO MONITOR - WILL REFER TO RT IF THE PT O2 SAT DECREASING
--- NOTE | 2020-08-30 05:10 | NUR ---
REMOVED NON REBREATHER MASK. PT IS NOW ON HFNC 40L AND FiO2 100%. SPO2 90%. PT IS TOLERATING WELL. PT IS IN NO RESPIRATORY DISTRESS AT THIS TIME. WILL CONTINUE TO MONITOR PT.
--- NOTE | 2020-08-30 05:17 | NUR ---
PT ON HI FLOW 40 % O2 SAT 95 % . WILL CONT. TO MONITOR .CALL LIGHT WITHIN REACH .
--- NOTE | 2020-08-30 06:20 | NUR ---
RE CHECK BP 100 /60
[2020-08-30] MEDS: LEVOTHYROXINE 0.075 MG TAB PO SCH (06:41)
--- NOTE | 2020-08-30 06:41 | NUR ---
I TOOK 3 TABS SYNTHROID 75 MCG/TAB BUT PT. TOOK ONLY 1 TABLET - BECAUSE ACCORDING TO HIM ONLY 1 TABLET HE USUALLY TAKING - WILL INFORM DR. GALE . Addendum: 08/30/20 at 0846 by Danielle Pagan RN I TOOK 3 TABS OF SYNTHROID FROM THE XIS BUT PT ONLY TOOK 1 TAB. - WILL INFORM DR. GALE
[2020-08-30 06:49] LABS: BASOPHILS % (AUTO) 0.2 % (0.0-2.0); EOSINOPHILS # (AUTO) 0.2 K/uL (0-0.4); EOSINOPHILS % (AUTO) 2.2 % (0.0-4.0); HEMATOCRIT 40.7 % (36-52); HEMOGLOBIN 13.6 g/dL (12.0-18.0); LYMPHOCYTES # (AUTO) 0.7 K/uL (2.0-11.5); LYMPHOCYTES % (AUTO) 6.4 % (20.5-51.1); MEAN CORPUSCULAR HEMOGLOBIN 38 pg (27-31); MEAN CORPUSCULAR HGB CONC 34 g/dL (33-37); MONOCYTES # (AUTO) 0.4 K/uL (0.8-1.0); MONOCYTES % (AUTO) 3.4 % (1.7-9.3); NEUTROPHILS # (AUTO) 9.3 K/uL (1.8-7.7); NEUTROPHILS % (AUTO) 87.8 % (42.2-75.2); PLATELET COUNT (AUTO) 340 K/uL (140-450); RED BLOOD CELL COUNT(AUTO) 3.63 MIL/uL (4.20-6.10); RED CELL DISTRIBUTION WIDTH 13.4 % (11.6-13.7); WHITE BLOOD COUNT (AUTO) 10.6 K/uL (4.8-10.8)
--- NOTE | 2020-08-30 06:50 | NUR ---
RT ASSESED THE PT - PER RT HE PUT THE PT ON HI FLOW AT 40 % - O2 SAT 95 % WILL ENDORSE
[2020-08-30] MEDS: ALBUTEROL SULFATE/IPRATROPIU 3 ML SOL IH SCH ×2 (07:00→12:19)
--- NOTE | 2020-08-30 07:00 | NUR ---
NOT GIVEN DUE TO COVID PERCAUTIONS
[2020-08-30 07:36] LABS: ALBUMIN 2.1 g/dL (3.4-5.0); ANION GAP 6.5 (8-16); CARBON DIOXIDE 37.4 mmol/L (21-32); CREATININE 0.8 mg/dL (0.6-1.3); MAGNESIUM 2.2 mg/dL (1.8-2.4); POTASSIUM 3.9 mmol/L (3.5-5.1)
--- NOTE | 2020-08-30 07:50 | NUR ---
ENDORSE - PT - STABLE . I SENT MSG TO DR. GALE ABOUT THE PT'S SON REQUEST TO KNOW THE PLAN OF CARE ABOUT THE PLAN OF CARE . - ENDORSED
--- NOTE | 2020-08-30 07:50 | NUR ---
RECEIVED REPORT FROM PM RN, PT IS STABLE AT THIS TIME. RESTING IN BED RIGHT LATERAL SIDE WITH EYES CLOSED. SAFETY MEASURES IN PLACE.
[2020-08-30 08:00] VITALS: BP 104/67
[2020-08-30] MEDS: FUROSEMIDE 20 MG/2 ML VIAL IVP SCH ×3 (09:30→17:00)
[2020-08-30] MEDS: ASCORBIC ACID 500 MG TAB PO SCH (09:30)
[2020-08-30] MEDS: PANTOPRAZOLE 40 MG TABEC PO SCH (09:30)
[2020-08-30] MEDS: ZINC SULF 220 MG CAP PO SCH (09:30)
[2020-08-30] MEDS: POLYETHYLENE GLYCOL 17 GM/PKT PO SCH ×2 (09:31→21:00)
--- NOTE | 2020-08-30 09:40 | NUR ---
PT AWAKE AND ALERT LUNG SOUNDS DIMINISHED IN NO DISTRESS. ABD IS SOFT AND NONTENDER REPORTS HE HAS TO HAVE NUMNER 2 RIGHT NOW. DENIES DIFFICULTY SKIN INTACT. CONTINUES ON HIGH FLOW AT 40% SPO2 90%. PT COMMUNICATES WANTS AND NEEDS WITH NO ISSUES CALL LIGHT WITHIN REACH. SAFETY MEASURES IN PLACE. WILL CONTINUE WITH POC. TOLERATED PO MEDICATION
[2020-08-30 12:00] VITALS: BP 81/49
--- NOTE | 2020-08-30 12:15 | NUR ---
NOT GIVEN DUE TO COVID PRECAUTIONS
--- NOTE | 2020-08-30 12:30 | NUR ---
PT LAYING IN BED WATCHING TV REMAINS ON HIGH FLOW AT 40% WITH SPO2 90-91% CALL LIGHT WITHIN REACH Addendum: 08/30/20 at 1410 by Lisbet Giron RN V/S: 98.1, 107, 20, 81/49, 0/10, 91% MD WILL BE NOTIFIED OF LOW BP PT HAS BEEN RUNNING IN THE 80'S (B/P) FOR SOME TIMES. PT DENIES DIZZINESS OR WEAKNESS ENCOURAGED TO STAY OUT OF BED AND CALL FOR RESTROOM ASSIST. PT VERBALIZED UNDERSTANDING
--- NOTE | 2020-08-30 14:06 | NUR ---
PT RESTING IN BED IN NO DISTRESS. CALL LIGHT WITHIN REACH
[2020-08-30 16:00] VITALS: BP 105/70
--- NOTE | 2020-08-30 16:40 | NUR ---
DR. GALE NOTIFIED OF LOW BP AND NO NEW ORDERS DONE. V/S: 96.9, 103, 20, 105/70, 90% ON HIGH FLOW AT 40% DENIES PAIN 0/10. PT STABLE AT THIS TIME. LASIX HELD DUE TO LOW BP.
--- NOTE | 2020-08-30 18:30 | NUR ---
PT IS RESTING IN BED IN NO DISTRESS, CALL NEEDS MET
--- NOTE | 2020-08-30 19:52 | NUR ---
RECEIVED REPORT FROM SHAHNAZ RASHID DAYSHIFT NURSE AT BEDSIDE FOR CONTINUITY OF CARE, PT IN STABLE CONDITION.
[2020-08-30 20:00] VITALS: BP 110/60
--- NOTE | 2020-08-30 21:29 | NUR ---
PT IN BED NO C/O VOICED, PT DECLINED ORDERED MIRALAX, BENEFITS OF ORDERED MEDS EXPLAINED, PT DECLINED AND SAID IM OK I HAD A BM ALREADY.
[2020-08-31] VITALS: BP 89/66
[2020-08-31] MEDS: ENOXAPARIN 120 MG/0.8 ML SYR SUBQ SCH ×2 (00:19→13:00)
--- NOTE | 2020-08-31 00:35 | NUR ---
PT IN BED ASLEEP DURING ROUNDS NO S/S OF PAIN OR DISTRESS NOTED.
[2020-08-31 04:00] VITALS: BP 81/40
[2020-08-31] MEDS: LEVOTHYROXINE 0.075 MG TAB PO SCH (06:26)
--- NOTE | 2020-08-31 06:27 | NUR ---
PT ONLY WANTED 2 OUT OF 3 PILLS BECAUSE HE SAID HE LOST A LOT OF WEIGHT AND WAS CONCERNED THAT IT WOULD BE TOO MUCH MEDICAINE FOR HIM .
[2020-08-31 08:00] VITALS: BP 98/66
--- NOTE | 2020-08-31 08:24 | NUR ---
PT STATES NO PAIN AND COMPLIANT WITH CARE. TOLERATING HFNC AT 40 LPM, FIO2 AT 100%.
[2020-08-31] MEDS: PANTOPRAZOLE 40 MG TABEC PO SCH (08:31)
[2020-08-31] MEDS: ZINC SULF 220 MG CAP PO SCH (08:31)
[2020-08-31] MEDS: ASCORBIC ACID 500 MG TAB PO SCH (08:31)
[2020-08-31] MEDS: POLYETHYLENE GLYCOL 17 GM/PKT PO SCH ×2 (08:57→21:00)
[2020-08-31] MEDS: FUROSEMIDE 20 MG/2 ML VIAL IVP SCH ×3 (09:00→17:14)
--- NOTE | 2020-08-31 11:18 | NUR ---
PT IS RESTING IN BED COMFORTABLY AND TOLERATIN HFNC AT 40 LPM. PT STATES NO PAIN.
[2020-08-31 12:00] VITALS: BP 104/68
--- NOTE | 2020-08-31 13:17 | NUR ---
PT STATES NO PAIN AND CONTINUES TO TOLERATE HFNC AT 40 LPM. PT STATED THAT HE GETS FATIGUED WHEN SITTING UP IN ONE MOVEMENT THUS ENCOURAGED TO GRADUALLY MOVE POSITIONS. ALSO, ENCOURAGED PT TO LIE LATERAL OR PRONE.
--- NOTE | 2020-08-31 15:17 | NUR ---
PT STATED NO PAIN AND LYING L LATERAL ON BED. TOLERATING HFNC AT 40 LPM.
[2020-08-31 16:00] VITALS: BP 100/71
--- NOTE | 2020-08-31 17:36 | NUR ---
PT STATES NO PAIN AND TOLERATING HFNC. PT SEEN USING INCENTIVE SPIROMETER.
--- NOTE | 2020-08-31 19:00 | NUR ---
PT SITTING IN THE SIDE OF BED AND DOES NOT C/O PAIN. TOLERATING HFNC AT 40 LPM. ENDORSED CARE TO FLEX O WRITER OPERATOR RN.
--- NOTE | 2020-08-31 19:01 | NUR ---
RECEIVED ENDORSEMENT FROM AM SHIFT RN. AOX4, ON HIGH FLOW O2, NO SOB, DROPLET ISOLATION OBSERVED, SAFETY MEASURES IN PLACE, PLAN OF CARE DISCUSSED, CALL LIGHT WITHIN REACH.
[2020-08-31 20:00] VITALS: BP 94/48
--- NOTE | 2020-08-31 22:00 | NUR ---
RESTING, KEPT COMFORTABLE, CALL LIGHT WITHIN REACH.
[2020-09-01] VITALS: BP 95/55
--- NOTE | 2020-09-01 00:24 | NUR ---
CHECKED PT, ASLEEP, AROUSABLE TO VERBAL, NO SON, CALL LIGHT WITHIN REACH.
[2020-09-01] MEDS: ENOXAPARIN 120 MG/0.8 ML SYR SUBQ SCH ×2 (00:30→13:54)
--- NOTE | 2020-09-01 00:36 | NUR ---
LOVENOX SQ GIVEN ORDERED, TOLERATED WELL.
--- NOTE | 2020-09-01 03:14 | NUR ---
PT ASLEEP, RESPIRATION EVEN AND UNLABORED, CALL LIGHT WITHIN REACH.
[2020-09-01 04:00] VITALS: BP 107/65
[2020-09-01] MEDS: LEVOTHYROXINE 0.075 MG TAB PO SCH (05:37)
--- NOTE | 2020-09-01 06:35 | NUR ---
PT TOOK ONLY 1 OUT OF 3 SYNTHROID TABS PO, HE SAID THAT HE LOST A LOT OF WEIGHT, DIDN'T WANT TO TAKE ALL 3 TABS. RETURNED 2 TABS OF SYNTHROID AND INFORMED MD, STILL AWAITING CALL BACK.
--- NOTE | 2020-09-01 07:14 | NUR ---
DR. GALE AWARE THAT PT TOOK ONLY 1 OUT OF 3 SYNTHROID TAB. EVEN THOUGH I EXPLAINED TO PT THAT HE NEEDS TO TAKE THE PRESCRIBED DOSE, PT STILL REFUSED 4X. SAID THAT THE DOSE CANNOT BE REDUCED.
--- NOTE | 2020-09-01 07:22 | NUR ---
PT IS STABLE, ENDORSED TO AM SHIFT RN FOR CONTINUITY OF CARE.
[2020-09-01 08:00] VITALS: BP 98/76
--- NOTE | 2020-09-01 08:14 | NUR ---
PT TOLERATING HFNC AT 40 LPM, 02 AT 88-90%. PT STATES NO PAIN; HOWEVER, STATES INCREASED FATIGUE W/ ACTIVITY TODAY. ADVISED PT TO MOVE GRADUALLY AND ENCOURAGED LATERAL AND PRONE POSITIONING.
[2020-09-01] MEDS: FUROSEMIDE 20 MG/2 ML VIAL IVP SCH ×3 (09:00→16:49)
[2020-09-01] MEDS: PANTOPRAZOLE 40 MG TABEC PO SCH (09:04)
[2020-09-01] MEDS: ASCORBIC ACID 500 MG TAB PO SCH (09:04)
[2020-09-01] MEDS: POLYETHYLENE GLYCOL 17 GM/PKT PO SCH ×2 (09:04→22:17)
[2020-09-01] MEDS: ZINC SULF 220 MG CAP PO SCH (09:04)
[2020-09-01 12:00] VITALS: BP 92/74
--- NOTE | 2020-09-01 12:34 | NUR ---
PT STATES NO PAIN AND LYING R LATERAL. TOLERATING HFNC AT 40 LPM AT 89%. SPOKE TO PT ABOUT TAKING HIS HYPOTHYROID MED ACCORDING TO MD RECOMMENDATION, EMPHASIZED THAT MED SHOULD HELP W/ FATIGUE AND IT IS DOSED BASED ON HIS LABS. PT TAKES 225 MCG OF LEVOTHYROXINE AT HOME, AND DEMONSTRATED THAT IS THE SAME DOSE. PT VERBALIZED UNDERSTANDING AND ASKED HE BE COMPLIANT TO AID IN CARE.
--- NOTE | 2020-09-01 15:12 | NUR ---
PT STATES NO PAIN AND IS LYING L LATERAL ON BED. PT STATES TO BE FEELING SLIGHTLY LESS FATIGUED AND HAS HAD A MINIMAL PRODUCTIVE COUGH. INDICATED TO KEEP TURNING LATERAL AND PRONE WHEN POSSIBLE. PT VERBALIZED UNDERSTANDING.
--- NOTE | 2020-09-01 16:08 | NUR ---
PT IS SLEEPING L LATERAL AND STATES NO PAIN. TOLERATING HFNC AT 40 LPM.
[2020-09-01 16:48] VITALS: BP 96/64
--- NOTE | 2020-09-01 18:53 | NUR ---
PT IN HIGH FOWLERS TOLERATING HFNC AT 40 LPM. PT STATES NO PAIN AND STABLE. WILL ENDORSE CARE TO ORDER RUNNER RN.
--- NOTE | 2020-09-01 19:30 | NUR ---
RECEIVED ENDORSEMENT FROM AM SHIFT RN. PT IS AOX4, ON 40L HI FLOW, NO SOB, NO DISTRESS. DROPLET PRECAUTION IN PLACE, FALL PROTOCOL IN PLACE, PLAN OF CARE DISCUSSED, CALL LIGHT WITHIN REACH.
[2020-09-01 20:00] VITALS: BP 105/72
--- NOTE | 2020-09-01 22:23 | NUR ---
PT IS AWAKE, CONVERSANT, NO SOB, DUE MEDS GIVEN ORDERED, TOLERATED WELL, KEPT COMFORTABLE, CALL LIGHT WITHIN REACH.
[2020-09-02] VITALS: BP 104/71
[2020-09-02] MEDS: ENOXAPARIN 120 MG/0.8 ML SYR SUBQ SCH (00:07)
--- NOTE | 2020-09-02 00:11 | NUR ---
LOVENOX SQ GIVEN ORDERED, TOLERATED WELL, NO SOB, CALL LIGHT WITHIN REACH.
--- NOTE | 2020-09-02 02:00 | NUR ---
ASLEEP, RESPIRATION EVEN AND UNLABORED, NO SOB, CALL LIGHT WITHIN REACH.
[2020-09-02 04:00] VITALS: BP 95/55
[2020-09-02] MEDS: LEVOTHYROXINE 0.075 MG TAB PO SCH (06:10)
--- NOTE | 2020-09-02 06:20 | NUR ---
HOB ELEVATED, DUE MEDS GIVEN ORDERED, TOLERATED WELL, CALL LIGHT WITHIN REACH.
--- NOTE | 2020-09-02 07:19 | NUR ---
PT STABLE, ENDORSED TO AM SHIFT RN FOR CONTINUITY OF CARE.
--- NOTE | 2020-09-02 07:21 | NUR ---
RECEIVED REPORT FROM NIGHT NURSE PATIENT IS AAOX4 ON HIGH FLOW 40LPM, SKIN INTACT IV INTACT AND PATENT ON LEFT UPPER ARM PICC LINE, STRICT INPUT AND OUTPUT, CHAIRFAST. SAFETY MEASURES IN PLACE AND CALL LIGHT WITHIN REACH.
[2020-09-02 07:58] LABS: BASOPHILS # (AUTO) 0.1 K/uL (0.00-0.22); BASOPHILS % (AUTO) 0.8 % (0.0-2.0); EOSINOPHILS # (AUTO) 0.3 K/uL (0-0.4); EOSINOPHILS % (AUTO) 4.4 % (0.0-4.0); HEMATOCRIT 43.1 % (36-52); HEMOGLOBIN 14.5 g/dL (12.0-18.0); MEAN CORPUSCULAR HEMOGLOBIN 38 pg (27-31); MEAN CORPUSCULAR HGB CONC 34 g/dL (33-37); MEAN CORPUSCULAR VOLUME 111.2 fL (80-94); MONOCYTES # (AUTO) 0.5 K/uL (0.8-1.0); MONOCYTES % (AUTO) 7.1 % (1.7-9.3); NEUTROPHILS # (AUTO) 5.1 K/uL (1.8-7.7); NEUTROPHILS % (AUTO) 73.7 % (42.2-75.2); PLATELET COUNT (AUTO) 285 K/uL (140-450); RED BLOOD CELL COUNT(AUTO) 3.87 MIL/uL (4.20-6.10); RED CELL DISTRIBUTION WIDTH 13.2 % (11.6-13.7); WHITE BLOOD COUNT (AUTO) 6.9 K/uL (4.8-10.8)
[2020-09-02 08:00] VITALS: BP 102/72
[2020-09-02 08:25] LABS: ALBUMIN 2.4 g/dL (3.4-5.0); ANION GAP 8.9 (8-16); CARBON DIOXIDE 35.2 mmol/L (21-32); CREATININE 0.8 mg/dL (0.6-1.3); POTASSIUM 4.1 mmol/L (3.5-5.1); TOTAL BILIRUBIN 0.9 mg/dL (0.0-1.0)
[2020-09-02] MEDS: FUROSEMIDE 20 MG/2 ML VIAL IVP SCH ×3 (09:00→18:00)
[2020-09-02] MEDS: ASCORBIC ACID 500 MG TAB PO SCH (09:00)
[2020-09-02] MEDS: PANTOPRAZOLE 40 MG TABEC PO SCH (09:00)
[2020-09-02] MEDS: POLYETHYLENE GLYCOL 17 GM/PKT PO SCH ×2 (09:00→21:00)
[2020-09-02] MEDS: ZINC SULF 220 MG CAP PO SCH (09:00)
--- NOTE | 2020-09-02 09:50 | NUR ---
MEDICATION DUE GIVEN CHECK VITAL SIGNS PRIOR TO MEDICATION BP 102/72 CT 94. LASIX ON HOLD PER PARAMETERS AND POLYETHYLENE NOT GIVEN PATIENT REFUSED.
[2020-09-02 12:00] VITALS: BP 100/92
--- NOTE | 2020-09-02 12:00 | NUR ---
VITAL SIGNS TAKEN BP 100/92 KS 103. NO DISTRESS NOTED PATIENT HAD A BOWEL MOVEMENT
--- NOTE | 2020-09-02 13:30 | NUR ---
LASIX NOT GIVEN BP 100/[address] STRONG AWARE.
[2020-09-02 16:00] VITALS: BP 117/77
--- NOTE | 2020-09-02 17:00 | NUR ---
MEDICATION DUE GIVEN CHECK VITAL BP 117/77 IN 103.
--- NOTE | 2020-09-02 19:35 | NUR ---
ENDORSED TO NIGHT NURSE FOR CONTINUITY OF CARE. PT IS STABLE
[2020-09-02 20:00] VITALS: BP 92/53
[2020-09-03] VITALS: BP 117/65
--- NOTE | 2020-09-03 | NUR ---
MADE ROUNDS , NO S/SX OF ACUTE DISTRESS NOTED
[2020-09-03 04:00] VITALS: BP 106/52
--- NOTE | 2020-09-03 04:00 | NUR ---
O2 SAT WNL . N S/SX OF ACUTE DISTRESS NOTED
--- NOTE | 2020-09-03 06:00 | NUR ---
NO COMPLAIN MADE
[2020-09-03] MEDS: LEVOTHYROXINE 0.075 MG TAB PO SCH (06:44)
--- NOTE | 2020-09-03 07:58 | NUR ---
ENDORSED - PT - STABLE
--- NOTE | 2020-09-03 07:58 | NUR ---
RECEIVED PT FROM GREEN PIPEFITTER NURSE, HARRY PICC LINE NOTED WITH SALINE LOCK, CONTINENT WITH USE OF URINAL, HIGH FLOW NC AT 40%, PT IS RESTING IN BED, SAFETY AND FALL PRECAUTIONS IN PLACE, WILL CONTINUE TO MONITOR.
[2020-09-03 08:00] VITALS: BP 110/60
[2020-09-03 10:09] LABS: ALBUMIN 2.2 g/dL (3.4-5.0); ANION GAP 7.1 (8-16); CREATININE 0.8 mg/dL (0.6-1.3); POTASSIUM 4.1 mmol/L (3.5-5.1); TOTAL BILIRUBIN 0.4 mg/dL (0.0-1.0)
[2020-09-03] MEDS: POLYETHYLENE GLYCOL 17 GM/PKT PO SCH ×2 (10:25→21:00)
[2020-09-03] MEDS: ZINC SULF 220 MG CAP PO SCH (10:25)
[2020-09-03] MEDS: PANTOPRAZOLE 40 MG TABEC PO SCH (10:25)
[2020-09-03] MEDS: ASCORBIC ACID 500 MG TAB PO SCH (10:25)
[2020-09-03] MEDS: FUROSEMIDE 20 MG/2 ML VIAL IVP SCH ×3 (10:26→17:00)
--- NOTE | 2020-09-03 10:30 | NUR ---
SCHEDULED MEDICATIONS ADMINISTERED, BP 100/60, HR 96, O2 91, RR 24, EDUCATION PROVIDED, PT VERBALIZED UNDERSTANDING, WILL CONTINUE TO MONITOR.
[2020-09-03 12:00] VITALS: BP 95/53
--- NOTE | 2020-09-03 13:09 | NUR ---
SCHEDULED LASIX HELD, CURRENT BP IS 93/58. ELEVATED HR 110. WILL NOTIFY MD. PT IS RESTING IN BED, PT STATES HE IS FEELING OK. WILL CONTINUE TO MONITOR.
--- NOTE | 2020-09-03 14:06 | NUR ---
MD ORDERED TO CONTINUE TO HOLD LASIX UNTIL BP IS OVER 100/60 AND CONTINUE TO MONITOR PT, PT IS RESTING IN BED, NO SIGNS OF DISTRESS NOTED, WILL CONTINUE TO MONITOR.
[2020-09-03 16:00] VITALS: BP 99/62
--- NOTE | 2020-09-03 19:55 | NUR ---
ENDORSED PT TO FUR VAULT ATTENDANT NURSE FOR CONTINUITY OF CARE.
--- NOTE | 2020-09-03 19:55 | NUR ---
RECEIVED PT AAOX4 , ON HIGH FLOW O2 AT 65 % PER NC - O2 SAT WNL . DENIES ANY PAIN - ON TELE MOPNITOR . PLAN OF ADWIT DISCUSSED AND VERBALIZE UNDERSTANDING . SAFETY MEASURES IN PLACE - CALL LIGHT WITHIN REACH . WILL CONT. TO MONITOR Addendum: 09/04/20 at 0411 by Danielle Pagan RN THE WORD 65 % IN THE ABOVE NURSE'S NOTE IS AN ERROR ENTRY , INSTEAD OF 40 % - TALIA
[2020-09-03 20:00] VITALS: BP 109/70
[2020-09-04] VITALS: BP 97/64
--- NOTE | 2020-09-04 00:21 | NUR ---
BP RE CHECKED - 90 /61 - BP MEAN 76 , ASK PT. IF HE IS FEELING OK ? HE SAID YES I'M OK , BUT SOMETIMES WHEN I MOVE FAST I FEEL SHORTNESS OF BREATH . PT IS ON HIGH FLOW O2 AT 40 % O2 SAT WT HIS TIME 97 % , ON TELE MOPNITOR , CALL LIGHT WITHIN REACH . FOR CLOSELY WATCH .
[2020-09-04 04:00] VITALS: BP 94/66
--- NOTE | 2020-09-04 04:05 | NUR ---
RE CHECK THE BP 100/ 60 - DENIES ANY PAIN . ON TELE MONITOR . FLUSH THE PICC LINE W/ NSS - INTACT AND PATENT . WILL CONT. TO MONITOR .
[2020-09-04] MEDS: LEVOTHYROXINE 0.075 MG TAB PO SCH (06:23)
--- NOTE | 2020-09-04 06:28 | NUR ---
REFER TO RT PT'S HIGHEST O2 SAT IS 88 % WITH UP AND DOWN TO 84 % TO 85 % - RT SAID SHE WILL COME TO SEE THE PT . - WILL CONT. TO MONITOR .
--- NOTE | 2020-09-04 07:20 | NUR ---
RECEIVED REPORT FROM NIGHT NURSE PATIENT IS AAOX4 ON HIGH FLOW 40% VIA NC, SKIN INTACT, IV INTACT AND PATENT ON LEFT ARM PICC LINE DOUBLE LUMEN, ENCOURAGED TO USE INCENTIVE SPIROMETRY, PATIENT REFUSES MIRALAX, SINUS TACHYCARDIA DURING THE NIGHT. SAFETY MEASURES IN PLACE AND CALL LIGHT WITHIN REACH. WILL CONTINUE TO MONITOR.
--- NOTE | 2020-09-04 07:20 | NUR ---
ENDORSED - PT - STABLE - 92 % O2 SAT
[2020-09-04 08:00] VITALS: BP 118/76
[2020-09-04 08:45] LABS: ALBUMIN 2.3 g/dL (3.4-5.0); ANION GAP 7.4 (8-16); CARBON DIOXIDE 35.1 mmol/L (21-32); CREATININE 0.7 mg/dL (0.6-1.3); POTASSIUM 4.5 mmol/L (3.5-5.1); TOTAL BILIRUBIN 0.5 mg/dL (0.0-1.0)
[2020-09-04] MEDS: ASCORBIC ACID 500 MG TAB PO SCH (09:37)
[2020-09-04] MEDS: PANTOPRAZOLE 40 MG TABEC PO SCH (09:37)
[2020-09-04] MEDS: POLYETHYLENE GLYCOL 17 GM/PKT PO SCH ×2 (09:38→20:07)
[2020-09-04] MEDS: ZINC SULF 220 MG CAP PO SCH (09:38)
--- NOTE | 2020-09-04 09:40 | NUR ---
MEDICATION DUE GIVEN PATIENT ABLE TO SWALLOW MEDS AND FINISHED HIS MEAL. SAFETY MEASURES IN PLACE AND CALL LIGHT WITHIN REACH. WILL CONTINUE TO MONITOR.
--- NOTE | 2020-09-04 10:10 | NUR ---
LASIX GIVEN TO PATIENT CHECK VITAL SIGNS PRIOR TO MEDICATION BP 118/76 OH 104 OXYGEN SATURATION AT 91%.
[2020-09-04] MEDS: FUROSEMIDE 20 MG/2 ML VIAL IVP SCH ×3 (10:16→17:06)
[2020-09-04 12:00] VITALS: BP 108/76
--- NOTE | 2020-09-04 12:00 | NUR ---
MADE ROUNDS PATIENT IS STABLE OXYGEN SATURATION AT 92%
[2020-09-04] MEDS: ALBUTEROL SULFATE/IPRATROPIU 3 ML SOL IH SCH ×2 (13:00→19:00)
--- NOTE | 2020-09-04 13:00 | NUR ---
MEDICATION NOT GIVEN PATIENT BLOOD PRESSURE IS LOW. BP 108/76 OH 107.
[2020-09-04 16:00] VITALS: BP 121/72
--- NOTE | 2020-09-04 17:12 | NUR ---
MEDICATION DUE GIVEN CHECK VITAL SIGNS PRIOR TO MEDICATION BP 121/72 ID 104
--- NOTE | 2020-09-04 18:30 | NUR ---
URINE OUTPUT AT 1550 ML STILL WITH BLOOD CLOTS SEEN ON THE URINARY CATHETER, Addendum: 09/04/20 at 1901 by Dafne Arroyo RN WRONG PATIENT.
--- NOTE | 2020-09-04 19:30 | NUR ---
RECEIVED PT ON BED WATCHING TV, AAOX4, ABLE TO MAKE NEEDS KNOWN, NO RESPIRATORY DISTRESS NOTED, SAT-95% ON HIGH FLOW O2 AT 40L, IVF INFUSING WELL VIA LEFT UA PICC LINE, DRESSING DRY AND INTACT, MAINTAINED ON DROPLET PRECAUTION FOR COVID POSITIVE, SAFETY MEASURES IN PLACE, CALL LIGHT WITHIN REACH.
--- NOTE | 2020-09-04 19:30 | NUR ---
ENDORSED TO NIGHT NURSE FOR CONTINUITY OF CARE. PT IS STABLE
[2020-09-04 20:00] VITALS: BP 107/70
--- NOTE | 2020-09-04 20:10 | NUR ---
DUE MEDICATION TAKEN, VOIDING FREELY USING URINAL, ALL NEEDS ATTENDED.
--- NOTE | 2020-09-04 23:40 | NUR ---
PT SLEEPING, NO SIGNS OF RESP DISTRESS, CONTINUE ON HFO2 AT 40L WITH SAT OF 92%, CONTINUE TO MONITOR CLOSELY.
[2020-09-05] VITALS: BP 110/47
[2020-09-05] MEDS: ALBUTEROL SULFATE/IPRATROPIU 3 ML SOL IH SCH ×3 (01:00→13:00)
--- NOTE | 2020-09-05 03:50 | NUR ---
PT SLEEPING, NO SIGNS OF RESP DISTRESS, CONTINUE ON HFO2 AT 40L, MONITORED CLOSELY.
[2020-09-05 04:00] VITALS: BP 90/64
[2020-09-05] MEDS: LEVOTHYROXINE 0.075 MG TAB PO SCH (05:43)
--- NOTE | 2020-09-05 07:30 | NUR ---
RECEIVED PT AAOX4. NO SOB NOTED. PT ON HIGH FLOW OXYGEN @40 LITERS WITH SATS OF 93%. NO C/O PAIN AT THIS TIME. INSTRUCTED TO CALL FOR ASSISTANCE, CALL LIGHT WITHIN REACH, PT VERBALIZED UNDERSTANDING.
--- NOTE | 2020-09-05 07:30 | NUR ---
PT AWAKE, NO SIGNS OF DISTRESS, REPORT GIVEN TO RN [place] FOR CONTINUITY OF CARE.
[2020-09-05 08:00] VITALS: BP 111/85
[2020-09-05 09:01] LABS: ALBUMIN 2.4 g/dL (3.4-5.0); ANION GAP 10.8 (8-16); CARBON DIOXIDE 35.5 mmol/L (21-32); CREATININE 0.8 mg/dL (0.6-1.3); POTASSIUM 4.3 mmol/L (3.5-5.1); TOTAL BILIRUBIN 0.4 mg/dL (0.0-1.0)
[2020-09-05] MEDS: PANTOPRAZOLE 40 MG TABEC PO SCH (09:04)
[2020-09-05] MEDS: FUROSEMIDE 20 MG/2 ML VIAL IVP SCH ×3 (09:04→17:00)
[2020-09-05] MEDS: POLYETHYLENE GLYCOL 17 GM/PKT PO SCH ×2 (09:04→23:23)
[2020-09-05] MEDS: ASCORBIC ACID 500 MG TAB PO SCH (09:05)
[2020-09-05] MEDS: ZINC SULF 220 MG CAP PO SCH (09:05)
[2020-09-05 12:00] VITALS: BP 96/70
--- NOTE | 2020-09-05 12:10 | NUR ---
PT SEEN BY DR. MAY. NO NEW ORDERS.
[2020-09-05 16:00] VITALS: BP 106/73
--- NOTE | 2020-09-05 19:15 | NUR ---
PT RESTING, ON MODERATE HIGH BACK REST. NO SOB NOTED. NO SIGNS OF PAIN. WILL ENDORSE TO NEXT SHIFT NURSE FOR CONTINUITY OF CARE.
--- NOTE | 2020-09-05 19:35 | NUR ---
RECEIVED REPORT FROM ALEKSEY RN[place]ORG[place]. PT AOX4 ON HIGH FLOW OXYGEN 40L, O2 SAT 93%. NO S/S RESPIRATORY DISTRESS. NO C/O PAIN AT THIS TIME. HAS HARRY PICC, HEP LOCK. SAFETY MEASURES IN PLACE. CALL LIGHT WITHIN REACH. WILL CONTINUE TO MONITOR
[2020-09-05 20:00] VITALS: BP 111/64
--- NOTE | 2020-09-05 23:25 | NUR ---
ADMINISTERED SCHEDULED MEDICATION. TOLERATED WELL. WILL CONTINUE TO MONITOR
[2020-09-06] VITALS: BP 112/69
--- NOTE | 2020-09-06 01:35 | NUR ---
PT AWAKE IN BED. DENIES PAIN. DENIES SOB. RESPIRATIONS EVEN AND UNLABORED. WILL CONTINUE TO MONITOR
--- NOTE | 2020-09-06 03:30 | NUR ---
PT ASLEEP IN BED. RESPIRATIONS EVEN AND UNLABORED. NO DISTRESS NOTED. WILL CONTINUE TO MONITOR
[2020-09-06 04:00] VITALS: BP 105/66
[2020-09-06] MEDS: LEVOTHYROXINE 0.075 MG TAB PO SCH (05:38)
[2020-09-06 07:06] LABS: ALBUMIN 2.4 g/dL (3.4-5.0); ANION GAP 8.8 (8-16); CARBON DIOXIDE 36.8 mmol/L (21-32); CREATININE 0.8 mg/dL (0.6-1.3); POTASSIUM 4.6 mmol/L (3.5-5.1); TOTAL BILIRUBIN 0.4 mg/dL (0.0-1.0)
--- NOTE | 2020-09-06 07:30 | NUR ---
ENDORSED PT TO FUNERAL PROFESSIONAL NURSE. PT STABLE. ON 40L HIGH FLOW Addendum: 09/06/20 at 2041 by Teressa Mejia RN RN CORRECT TIME [id number]
--- NOTE | 2020-09-06 07:32 | NUR ---
PT ASLEEP IN BED. NO DISTRESS NOTED. WILL ENDORSE TO DAY RN. PT IS IN STABLE CONDITION
--- NOTE | 2020-09-06 07:35 | NUR ---
RECEIVED REPORT FROM ALEKSEY KELLY. PT AOX4 ON HIGH FLOW 40. NO S/S RESPIRATORY DISTRESS. NO C/O PAIN AT THIS TIME. HAS PICC HARRY, PATENT AND INTACT, S.L. SAFETY MEASURES IN PLACE. CALL LIGHT WITHIN REACH. WILL CONTINUE TO MONITOR.
[2020-09-06 08:00] VITALS: BP 102/62
[2020-09-06] MEDS: POLYETHYLENE GLYCOL 17 GM/PKT PO SCH ×2 (09:00→21:00)
[2020-09-06] MEDS: FUROSEMIDE 20 MG/2 ML VIAL IVP SCH ×3 (09:00→17:00)
--- NOTE | 2020-09-06 09:45 | NUR ---
REC'D REPORT FROM NURSE, CHANGE OF ASSIGNMENT, PT ON 40L HIGH FLOW CURRENTLY STABLE.
[2020-09-06] MEDS: PANTOPRAZOLE 40 MG TABEC PO SCH (10:38)
[2020-09-06] MEDS: ASCORBIC ACID 500 MG TAB PO SCH (10:39)
[2020-09-06] MEDS: ZINC SULF 220 MG CAP PO SCH (10:40)
--- NOTE | 2020-09-06 10:40 | NUR ---
ADMINISTERED MEDICATIONS PER MD ORDER, PT REFUSED MIRALAX. HELD LASIX D/T LOW BLOOD PRESSURE. PT TOLERATED PROCEDURE WELL
[2020-09-06 12:00] VITALS: BP 100/69
--- NOTE | 2020-09-06 12:18 | NUR ---
SPOKE TO SON YANN JUAREZ. UPDATED PT ON FATHER'S CONDITION. PT STABLE.
[2020-09-06] MEDS: ALBUTEROL SULFATE/IPRATROPIU 3 ML SOL IH SCH ×2 (13:00→19:00)
[2020-09-06 16:00] VITALS: BP 118/64
--- NOTE | 2020-09-06 17:00 | NUR ---
ADMINISTERED LASIX PER MD ORDER. PT TOLERATED PROCEDURE WELL
[2020-09-06 20:00] VITALS: BP 104/65
--- NOTE | 2020-09-06 23:39 | NUR ---
PT ASLEEP IN BED. RESPIRATIONS EVEN AND UNLABORED. NO DISTRESS NOTED. WILL CONTINUE TO MONITOR
[2020-09-07] VITALS: BP 101/65
[2020-09-07 04:00] VITALS: BP 103/71
[2020-09-07] MEDS: LEVOTHYROXINE 0.075 MG TAB PO SCH (05:44)
--- NOTE | 2020-09-07 06:49 | NUR ---
PT AWAKE IN BED WATCHING TELEVISION. DENIES SOB, DENIES PAIN. NO DISTRESS NOTED. WILL ENDORSE TO DAY RN FOR CONTINUITY OF CARE. PT IS IN STABLE CONDITION
--- NOTE | 2020-09-07 07:20 | NUR ---
REC'D REPORT FROM RN CARE TRANSITION NURSE, PT RESTING, ASLEEP, HIGH SHAMA 40L/MIN, FIO2 100%, PICC L.UPPER ARM SL. CALL LIGHT WITHIN REACH. BED LOWEST POSITION.
[2020-09-07 08:00] VITALS: BP 102/61
[2020-09-07] MEDS: FUROSEMIDE 20 MG/2 ML VIAL IVP SCH ×3 (09:00→17:00)
[2020-09-07] MEDS: POLYETHYLENE GLYCOL 17 GM/PKT PO SCH ×2 (09:11→21:00)
[2020-09-07] MEDS: ASCORBIC ACID 500 MG TAB PO SCH (09:12)
[2020-09-07] MEDS: ZINC SULF 220 MG CAP PO SCH (09:12)
[2020-09-07] MEDS: PANTOPRAZOLE 40 MG TABEC PO SCH (09:12)
[2020-09-07] MEDS: guaiFENesin DM 200/20 MG-10 ML 10 ML UDC PO PRN (09:13)
[2020-09-07 12:00] VITALS: BP 111/58
[2020-09-07 16:00] VITALS: BP 81/58
--- NOTE | 2020-09-07 19:22 | NUR ---
ENDORSED PT TO ELECTRONICS RESEARCH ENGINEER NURSE, PT STABLE, ON 40L HIGH SHAMA. PT STABLE, RESTING.
--- NOTE | 2020-09-07 19:35 | NUR ---
RECEIVED BEDSIDE REPORT FROM DAY SHIFT NURSE. PATIENT IS AWAKE AND COOPERATIVE. RESPIRATION EVEN UNLABORED ON HIGH FLOW 40L FIO2 @ 100%. NO DISTRESS NOTED. SKIN IS WARM AND DRY. IV PATENT AND INTACT. PLAN OF CARE WAS DISCUSSED. ALL SAFETY MEASURES IN PLACE. BED IS AT LOW POSITION. CALL LIGHT WITHIN REACH. WILL CONTINUE TO MONITOR.
[2020-09-07 20:00] VITALS: BP 97/58
--- NOTE | 2020-09-07 21:05 | NUR ---
ALL SCHEDULED MEDS WERE GIVEN PER ORDER. NO ASE NOTED. WILL CONTINUE TO MONITOR
[2020-09-08] VITALS: BP 97/64
--- NOTE | 2020-09-08 02:46 | NUR ---
MADE ROUNDS. PATIENT SLEEPING ON HIGH FLOW 40L NO DISTRESS NOTED. WILL CONTINUE TO MONITOR.
[2020-09-08 04:00] VITALS: BP 99/53
--- NOTE | 2020-09-08 04:45 | NUR ---
PROVIDED MORNING CARE
[2020-09-08] MEDS: LEVOTHYROXINE 0.075 MG TAB PO SCH (05:31)
--- NOTE | 2020-09-08 07:24 | NUR ---
ENDORSED PATIENT TO DAY SHIFT NURSE FOR CONTINUITY OF CARE.
[2020-09-08 08:00] VITALS: BP 98/64
--- NOTE | 2020-09-08 08:11 | NUR ---
PT STATED NO PAIN AND TOLERATING HFNC 40 LPM. PT STATES INCREASED FATIGUE TODAY.
[2020-09-08] MEDS: FUROSEMIDE 20 MG/2 ML VIAL IVP SCH ×3 (09:00→17:00)
[2020-09-08] MEDS: ASCORBIC ACID 500 MG TAB PO SCH (09:41)
[2020-09-08] MEDS: PANTOPRAZOLE 40 MG TABEC PO SCH (09:41)
[2020-09-08] MEDS: ZINC SULF 220 MG CAP PO SCH (09:42)
[2020-09-08] MEDS: POLYETHYLENE GLYCOL 17 GM/PKT PO SCH ×2 (09:42→20:05)
--- NOTE | 2020-09-08 10:16 | NUR ---
PT STATES NO PAIN AND TOLERATING HFNC AT 40 LPM.
[2020-09-08 12:00] VITALS: BP 112/70
--- NOTE | 2020-09-08 13:44 | NUR ---
PT TOLERATING HFNC 40 LPM AND STATES NO PAIN AT THIS TIME.
[2020-09-08 16:00] VITALS: BP 100/64
--- NOTE | 2020-09-08 16:33 | NUR ---
PT CONTINUES TO TOLERATE HFNC 40 LPM AND STATES NO PAIN. PT LYING R LATERAL.
--- NOTE | 2020-09-08 18:22 | NUR ---
PT STATES NO PAIN AND TOLERATING HFNC 40 LPM. PT STABLE AND WILL ENDORSE CARE TO MULTIMEDIA AUTHOR RN.
[2020-09-08 20:00] VITALS: BP 114/77
--- NOTE | 2020-09-08 20:10 | NUR ---
ALL SCHEDULED MEDS WERE GIVEN PER ORDER. NO ASE NOTED. WILL CONTINUE TO MONITOR.
--- NOTE | 2020-09-08 21:55 | NUR ---
MADE ROUNDS. PATIENT SLEEPING RESPIRATION EVEN UNLABORED ON HIGH FLOW 40L. NO DISTRESS NOTED, WILL CONTINUE TO MONITOR.
[2020-09-09] VITALS: BP 94/69
--- NOTE | 2020-09-09 03:53 | NUR ---
ROUNDS MADE. PATIENT SLEEPING RESPIRATION EVEN UNLABORED ON HIGH FLOW 40L. NO DISTRESS NOTED. WILL CONTINUE TO MONITOR.
[2020-09-09 04:00] VITALS: BP 103/72
[2020-09-09] MEDS: LEVOTHYROXINE 0.075 MG TAB PO SCH (06:33)
--- NOTE | 2020-09-09 07:37 | NUR ---
ENDORSED PATIENT TO DAY SHIFT NURSE FOR CONTINUITY OF CARE.
[2020-09-09 08:00] VITALS: BP 110/69
[2020-09-09] MEDS: ASCORBIC ACID 500 MG TAB PO SCH (09:34)
[2020-09-09] MEDS: PANTOPRAZOLE 40 MG TABEC PO SCH (09:34)
[2020-09-09] MEDS: POLYETHYLENE GLYCOL 17 GM/PKT PO SCH ×2 (09:35→20:25)
[2020-09-09] MEDS: ZINC SULF 220 MG CAP PO SCH (09:38)
[2020-09-09] MEDS: FUROSEMIDE 20 MG/2 ML VIAL IVP SCH ×3 (09:40→17:24)
[2020-09-09 12:00] VITALS: BP 104/62
[2020-09-09] MEDS: ALBUTEROL SULFATE/IPRATROPIU 3 ML SOL IH SCH ×2 (13:00→19:00)
[2020-09-09 18:26] VITALS: BP 113/49
[2020-09-09 20:00] VITALS: BP 120/75
--- NOTE | 2020-09-09 20:30 | NUR ---
ALL SCHEDULED MEDS WERE GIVEN PER ORDER. WILL CONTINUE TO MONITOR.
--- NOTE | 2020-09-09 21:15 | NUR ---
PATIENT HAD 1BM DIARRHEA
--- NOTE | 2020-09-09 22:48 | NUR ---
PT FOUND ON HIGH FLOW PT IN NO DISTRESS AT THIS TIME.
[2020-09-10] VITALS: BP 118/75
--- NOTE | 2020-09-10 00:09 | NUR ---
VITALS WERE TAKEN. PATIENT IN STABLE CONDITION. NO DISTRESS NOTED. WILL CONTINUE TO MONITOR.
[2020-09-10] MEDS: ALBUTEROL SULFATE/IPRATROPIU 3 ML SOL IH SCH ×4 (01:00→18:43)
--- NOTE | 2020-09-10 02:24 | NUR ---
MADE ROUNDS. PATIENT SLEEPING RESPIRATION EVEN UNLABORED ON HIGH FLOW 40L @ 1005 FIO2 NC. NO DISTRESS NOTED. WILL CONTINUE TO MONITOR
[2020-09-10 04:00] VITALS: BP 109/68
--- NOTE | 2020-09-10 04:30 | NUR ---
VITALS WERE TAKEN. PATIENT IN STABLE CONDITION. NO DISTRESS NOTED.
--- NOTE | 2020-09-10 05:22 | NUR ---
PROVIDED MORNING CARE
[2020-09-10] MEDS: LEVOTHYROXINE 0.075 MG TAB PO SCH (05:44)
--- NOTE | 2020-09-10 07:43 | NUR ---
ENDORSED PATIENT TO DAY SHIFT NURSE FOR CONTINUITY OF CARE
[2020-09-10 08:00] VITALS: BP 178/61
[2020-09-10] MEDS: PANTOPRAZOLE 40 MG TABEC PO SCH (08:54)
[2020-09-10] MEDS: ASCORBIC ACID 500 MG TAB PO SCH (08:54)
[2020-09-10] MEDS: ZINC SULF 220 MG CAP PO SCH (08:54)
[2020-09-10] MEDS: POLYETHYLENE GLYCOL 17 GM/PKT PO SCH ×2 (08:55→21:00)
[2020-09-10] MEDS: FUROSEMIDE 20 MG/2 ML VIAL IVP SCH ×3 (08:55→17:22)
[2020-09-10] MEDS: ACETAMINOPHEN 325 MG TAB PO PRN (08:55)
[2020-09-10 12:00] VITALS: BP 104/72
--- NOTE | 2020-09-10 12:57 | NUR ---
BREATHING TX NOT GIVEN DUE TO RESPIRATORY PROTOCOL FOR COVID POSITIVE PTS.
--- NOTE | 2020-09-10 15:05 | NUR ---
09/10/20 RD FOLLOW UP COMPLETED PLEASE REFER TO NUTRITION ASSESSMENT UNDER CARE ACTIVITY FOR ESTIMATED NUTRITIONAL NEEDS. 1. CONTINUE REGULAR DIET TOLERATED 2. CONTINUE ENSURE TID 3. ENCOURAGE PO INTAKE 4. RD TO FOLLOW-UP 3-5 DAYS, MODERATE RISK DAV KAY, RD
--- NOTE | 2020-09-10 15:45 | NUR ---
PATIENT RESTING IN BED, NOT IN DISTRESS NOTED. WILL CONTINUE TO MONITOR.
[2020-09-10 16:00] VITALS: BP 97/67
--- NOTE | 2020-09-10 18:41 | NUR ---
PATIENT RESTING IN BED, STILL ON 40 HIGH FLOW, DENIES PAIN AND SOB. NO UNTOWARD INCIDENT NOTED DURING THE SHIFT. WILL ENDORSE TO THE NEXT SHIFT FOR CONTINUITY OF CARE. IN STABLE CONDITION.
[2020-09-10 20:00] VITALS: BP 99/63
[2020-09-11] VITALS: BP 95/68
[2020-09-11] MEDS: ALBUTEROL SULFATE/IPRATROPIU 3 ML SOL IH SCH ×3 (01:00→19:00)
[2020-09-11 04:00] VITALS: BP 112/74
[2020-09-11] MEDS: LEVOTHYROXINE 0.075 MG TAB PO SCH (05:33)
--- NOTE | 2020-09-11 07:20 | NUR ---
RECEIVED BEDSIDE REPORT FROM TRANSMISSION REBUILDER NURSE. PATIENT IS AOX4. RESPIRATION EVEN UNLABORED ON HIGH FLOW 40L FIO2 @ 100%. NO DISTRESS NOTED. SKIN IS WARM AND DRY. IV HARRY PICC LINE PATENT AND INTACT. PLAN OF CARE WAS DISCUSSED. ALL SAFETY MEASURES IN PLACE. BED IS AT LOW POSITION. CALL LIGHT WITHIN REACH. WILL CONTINUE TO MONITOR.
[2020-09-11 08:00] VITALS: BP 107/68
[2020-09-11] MEDS: FUROSEMIDE 20 MG/2 ML VIAL IVP SCH ×3 (09:00→17:12)
[2020-09-11] MEDS: POLYETHYLENE GLYCOL 17 GM/PKT PO SCH ×2 (09:03→20:23)
[2020-09-11] MEDS: ASCORBIC ACID 500 MG TAB PO SCH (09:03)
[2020-09-11] MEDS: PANTOPRAZOLE 40 MG TABEC PO SCH (09:04)
[2020-09-11] MEDS: ZINC SULF 220 MG CAP PO SCH (09:04)
[2020-09-11] MEDS: ENOXAPARIN 40 MG/0.4 ML SYR SUBQ SCH (09:05)
--- NOTE | 2020-09-11 09:15 | NUR ---
ALL SCHEDULED MEDS GIVEN. PT IS STABLE. NO S/S OF RESPIRATORY DISTRESS NOTED. WILL CONTINUE TO MONITOR.
[2020-09-11 12:00] VITALS: BP 111/89
--- NOTE | 2020-09-11 12:40 | NUR ---
PT WAS CLEANED AND REPOSITIONED NOW, NO SIGN OF DISTRESS NOTED.
--- NOTE | 2020-09-11 14:14 | NUR ---
PT WAS ASKED ABOUT NT EATING MUCH ON HIS LUNCH TRAY AND PT SAID THAT HE IS NOT THAT HUNGRY.
[2020-09-11 16:00] VITALS: BP 106/78
--- NOTE | 2020-09-11 17:16 | NUR ---
ALL SCHEDULED MEDS GIVEN. PT IS STABLE. NO RESPIRATORY DISTRESS NOTED. WILL CONTINUE TO MONITOR.
--- NOTE | 2020-09-11 19:44 | NUR ---
ENDORSED TO AUTOMOTIVE TIRE TECHNICIAN FOR CONTINUITY OF CARE. PT IS STABLE.
--- NOTE | 2020-09-11 19:45 | NUR ---
RECEIVED PT IN STABLE CONDITION FROM AM NURSE. AWAKE,ALERT AND ORIENTED X4. ON DROPLET ISOLATION DUE TO COVID 19 POSITIVE. ON HIGH SHAMA O2 40L 100 %.O2 SAT 98%. NO C/O ANY DISCOMFORT /PAIN AT THIS TIME. WITH LEFT UPPER AR PICC LINE. DRESSING IN PLACED. CLEAR AND PATENT. FREQ ROUNDS NEEDED. BED ON LOW POSITION. SIDE RAILS UP X2 CALL LIGHT WITHIN REACH. WILL CONTINUE TO MONITOR.
[2020-09-11 20:00] VITALS: BP 125/72
--- NOTE | 2020-09-11 21:00 | NUR ---
DUE MEDS GIVEN PO AT THIS TIME. TOLERATE WELL.
--- NOTE | 2020-09-11 23:00 | NUR ---
CHECKED ON PT. PT IS SLEEPING WITH NO DISCOMFORT NOR ANY DISTRESS NOTED.
[2020-09-12] VITALS: BP 114/69
[2020-09-12] MEDS: ALBUTEROL SULFATE/IPRATROPIU 3 ML SOL IH SCH ×4 (01:00→19:00)
--- NOTE | 2020-09-12 01:00 | NUR ---
MADE ROUNDS. PT IS SLEEPING WELL WITH NO DISTRESS NOTED. WILL CONTINUE TO MONITOR.
--- NOTE | 2020-09-12 03:00 | NUR ---
MADE ROUNDS. PT ASLEEP. NO S/S OF ANY DISTRESS NOTED.
[2020-09-12 04:00] VITALS: BP 104/65
--- NOTE | 2020-09-12 04:23 | NUR ---
RT JUST CAME AND ASSESSED , CHECKED PT O2 SAT 96%.
[2020-09-12] MEDS: LEVOTHYROXINE 0.075 MG TAB PO SCH (05:52)
--- NOTE | 2020-09-12 07:25 | NUR ---
ENDORSED PT IN STABLE CONDITION TO AM NURSE.
[2020-09-12 08:00] VITALS: BP 103/68
--- NOTE | 2020-09-12 08:00 | NUR ---
RECEIVED REPORT FROM FIT MODEL FOR CONTINUITY OF CARE. PATIENT ALERT AWAKE ORIENTED X4, NOT IN DISTRESS NOTED. WITH HARRY PICC LINE DRY AND INTACT. ON HIGH FLOW OXYGEN SATURATION 100%. DENIES SOB AND PAIN ON MONITOR SHOWS ST. NEEDS ATTENDED. WILL CONTINUE TO MONITOR.
--- NOTE | 2020-09-12 09:00 | NUR ---
ALL DUE MEDICATIONS GIVEN AND TOLERATED WELL.
[2020-09-12] MEDS: ASCORBIC ACID 500 MG TAB PO SCH (09:26)
[2020-09-12] MEDS: PANTOPRAZOLE 40 MG TABEC PO SCH (09:26)
[2020-09-12] MEDS: ZINC SULF 220 MG CAP PO SCH (09:26)
[2020-09-12] MEDS: POLYETHYLENE GLYCOL 17 GM/PKT PO SCH ×2 (09:27→20:57)
[2020-09-12] MEDS: FUROSEMIDE 20 MG/2 ML VIAL IVP SCH (09:27)
[2020-09-12] MEDS: CEFEPIME 1,000 MG in DEXTROSE 5% 50 ML IV SCH ×2 (09:30→20:56)
[2020-09-12] MEDS: ENOXAPARIN 40 MG/0.4 ML SYR SUBQ SCH (09:30)
[2020-09-12] MEDS ORDERED: FLUTICASONE NASAL 50 MCG/ACTUATION 16 GM BTL NS PRN (11:55)
[2020-09-12 12:00] VITALS: BP 94/67
--- NOTE | 2020-09-12 14:42 | NUR ---
BREATHING TXS NOT GIVEN DUE TO RESPIRATORY PROTOCOL FOR COVID POSITIVE PTS.
[2020-09-12 16:00] VITALS: BP 102/68
[2020-09-12 19:02] LABS: BASOPHILS # (AUTO) 0.1 K/uL (0.00-0.22); EOSINOPHILS # (AUTO) 0.4 K/uL (0-0.4); EOSINOPHILS % (AUTO) 5.2 % (0.0-4.0); HEMATOCRIT 40.8 % (36-52); HEMOGLOBIN 13.7 g/dL (12.0-18.0); LYMPHOCYTES # (AUTO) 1.5 K/uL (2.0-11.5); LYMPHOCYTES % (AUTO) 22.8 % (20.5-51.1); MEAN CORPUSCULAR HEMOGLOBIN 36 pg (27-31); MEAN CORPUSCULAR HGB CONC 34 g/dL (33-37); MONOCYTES # (AUTO) 0.7 K/uL (0.8-1.0); MONOCYTES % (AUTO) 10.7 % (1.7-9.3); NEUTROPHILS # (AUTO) 4.1 K/uL (1.8-7.7); NEUTROPHILS % (AUTO) 60.3 % (42.2-75.2); PLATELET COUNT (AUTO) 399 K/uL (140-450); RED BLOOD CELL COUNT(AUTO) 3.81 MIL/uL (4.20-6.10); WHITE BLOOD COUNT (AUTO) 6.8 K/uL (4.8-10.8)
[2020-09-12 19:13] LABS: CARBON DIOXIDE 37.6 mmol/L (21-32); CREATININE 0.8 mg/dL (0.6-1.3); POTASSIUM 3.6 mmol/L (3.5-5.1)
--- NOTE | 2020-09-12 19:15 | NUR ---
GAVE REPORT TO TAPEMAN NURSE FOR CONTINUITY OF CARE. PATIENT IN STABLE CONDITION.
[2020-09-12 20:00] VITALS: BP 110/73
--- NOTE | 2020-09-12 22:10 | NUR ---
SWITCHED PT FROM HFNC 40L AND FiO2 100% TO VENTLAB HIGH FLOW HUMIDFIER 15L. SPO2 94%. PT TOLERATING WELL. WILL CONTINUE TO MONITOR
[2020-09-13 00:48] VITALS: BP 113/80
[2020-09-13] MEDS: ALBUTEROL SULFATE/IPRATROPIU 3 ML SOL IH SCH ×4 (01:00→19:00)
--- NOTE | 2020-09-13 01:23 | NUR ---
RECIEVED PATIENT IN BED, DENIED PAIN, BREATHING COMFORTABLY, ON HIGH FLOW OXYGEN PER N/C. NEW TRIAL BY RT. PM MEDS GIVEN. ABT IV GIVEN. WILL MONITOR.
[2020-09-13 04:00] VITALS: BP 105/79
[2020-09-13] MEDS: LEVOTHYROXINE 0.075 MG TAB PO SCH (05:47)
[2020-09-13 06:00] VITALS: BP 105/79
--- NOTE | 2020-09-13 07:10 | NUR ---
RECEIVED REPORT FROM NIGHT NURSE PATIENT IS AAOX4 ON 15LPM OXYGEN NC HIGH FLOW, SKIN INTACT, AMBULATORY IV INTACT AND PATENT ON LEFT UPPER ARM PICC LINE, REGULAR DIET AND SAFETY MEASURES IN PLACE AND CALL LIGHT WITHIN REACH.
--- NOTE | 2020-09-13 08:46 | NUR ---
PT RESTING IN BED ON 15LNC NO DISTRESS NOTED PT DENIES SOB AT THIS TIME
[2020-09-13] MEDS: ASCORBIC ACID 500 MG TAB PO SCH (09:03)
[2020-09-13] MEDS: PANTOPRAZOLE 40 MG TABEC PO SCH (09:03)
[2020-09-13] MEDS: ZINC SULF 220 MG CAP PO SCH (09:03)
[2020-09-13] MEDS: FUROSEMIDE 20 MG/2 ML VIAL IVP SCH (09:04)
[2020-09-13] MEDS: POLYETHYLENE GLYCOL 17 GM/PKT PO SCH ×3 (09:04→21:57)
[2020-09-13] MEDS: ENOXAPARIN 40 MG/0.4 ML SYR SUBQ SCH (09:05)
[2020-09-13] MEDS: CEFEPIME 1,000 MG in DEXTROSE 5% 50 ML IV SCH ×2 (09:06→21:57)
--- NOTE | 2020-09-13 09:06 | NUR ---
MEDICATION DUE GIVEN AND CHECK VITAL SIGNS PRIOR TO MEDICATION BP 112/73 SC 103 OXYGEN SATURATION AT 95%
[2020-09-13 12:00] VITALS: BP 120/81
--- NOTE | 2020-09-13 12:26 | NUR ---
COVID 19 SCOTT(RAPID) TEST COLLECTED AND SENT TO LAB.
--- NOTE | 2020-09-13 13:52 | NUR ---
COVID 19 SCOTT TEST RESULTED NEGATIVE
--- NOTE | 2020-09-13 14:30 | NUR ---
MADE ROUNDS AT THIS [place], NO LABORED BREATHING NOTED, NO DISTRESS AND PT IS STABLE
[2020-09-13 16:00] VITALS: BP 105/65
--- NOTE | 2020-09-13 16:43 | NUR ---
BREATHING TREATMENT BY RT NOT GIVEN TO PATIENT.
--- NOTE | 2020-09-13 19:23 | NUR ---
ENDORSED TO NIGHT NURSE FOR CONTINUITY OF CARE. STABLE
--- NOTE | 2020-09-13 19:23 | NUR ---
RECEIVED ENDORSEMENT FROM AM SHIFT RN. AOX4, NO SOB, NO DISTRESS, HF HUMIDIFIER 15 L, SAFETY MEASURES IN PLACE, PLAN OF CARE DISCUSSED, ISO PRECAUTION OBSERVED, CALL LIGHT WITHIN REACH.
[2020-09-13 20:00] VITALS: BP 128/91
--- NOTE | 2020-09-13 20:01 | NUR ---
PT RSEEN AND ASSESSED. PT ON VENTLAB HIGH FLOW HUMIDFIER 15L. SPO2 92%. PT TOLERATING WELL. WILL CONTINUE TO MONITOR PT.
--- NOTE | 2020-09-13 21:57 | NUR ---
ANTIBIOTIC MAXIPIME IV GIVEN ORDERED, NO A/R NOTED, PT REFUSED MIRALAX, HE SAID I DON'T WANT TO TAKE IT TONIGHT, EXPLAINED RISKS AND BENEFITS, PT SAID HE'LL PASS TONIGHT DOSE.
[2020-09-14] VITALS: BP 115/80
--- NOTE | 2020-09-14 | NUR ---
V/S TAKEN, KEPT COMFORTABLE, CALL LIGHT WITHIN REACH.
[2020-09-14] MEDS: ALBUTEROL SULFATE/IPRATROPIU 3 ML SOL IH SCH ×4 (01:00→19:00)
--- NOTE | 2020-09-14 02:00 | NUR ---
SLEEPING, RESPIRATION EVEN AND UNLABORED, CALL LIGHT WITHIN REACH.
[2020-09-14 04:00] VITALS: BP 107/79
[2020-09-14] MEDS: LEVOTHYROXINE 0.075 MG TAB PO SCH (05:56)
--- NOTE | 2020-09-14 05:59 | NUR ---
SYNTHROID PO GIVEN ORDERED, TOLERATED WELL, CALL LIGHT WITHIN REACH.
--- NOTE | 2020-09-14 07:14 | NUR ---
PT STABLE, NO SOB, NO DISTRESS, CALL LIGHT WITHIN REACH.
--- NOTE | 2020-09-14 07:19 | NUR ---
RECEIVED REPORT FROM NIGHTSHIFT NURSE. PT RESTING IN BED. ABLE TO MAKE NEEDS KNOWN. RESPIRATIONS EVEN AND UNLABORED WITH NO SOB OR RESPIRATORY DISTRESS. SKIN WARM AND DRY TO TOUCH. IV SITE IN HARRY PICC LINE IS CLEAN, DRY, AND INTACT. SAFETY MEASURES IN PLACE. WILL CONTINUE TO MONITOR
[2020-09-14 08:00] VITALS: BP 136/80
[2020-09-14] MEDS: POLYETHYLENE GLYCOL 17 GM/PKT PO SCH ×2 (09:00→21:54)
[2020-09-14] MEDS: CEFEPIME 1,000 MG in DEXTROSE 5% 50 ML IV SCH ×2 (09:17→21:54)
[2020-09-14] MEDS: FUROSEMIDE 20 MG/2 ML VIAL IVP SCH (09:18)
[2020-09-14] MEDS: ASCORBIC ACID 500 MG TAB PO SCH (09:20)
[2020-09-14] MEDS: ZINC SULF 220 MG CAP PO SCH (09:20)
[2020-09-14] MEDS: PANTOPRAZOLE 40 MG TABEC PO SCH (09:20)
[2020-09-14] MEDS: ENOXAPARIN 40 MG/0.4 ML SYR SUBQ SCH (09:21)
--- NOTE | 2020-09-14 09:50 | NUR ---
ADMINISTERED SCHED MED PRESCRIBED PER MD ORDER. PT TOLERATED WELL. MEDICATION EDUCATION PERFORMED. PT VERBALIZED UNDERSTANDING. SAFETY MEASURES IN PLACE. WILL CONTINUE TO MONITOR
[2020-09-14 12:00] VITALS: BP 146/74
--- NOTE | 2020-09-14 13:45 | NUR ---
HOURLY ROUNDING. PT RESTING IN BED. ABLE TO MAKE NEEDS KNOWN. RESPIRATIONS EVEN AND UNLABORED WITH NO SOB OR RESPIRATORY DISTRESS. SKIN WARM AND DRY TO TOUCH. SAFETY MEASURES IN PLACE. WILL CONTINUE TO MONITOR
[2020-09-14 16:00] VITALS: BP 106/48
--- NOTE | 2020-09-14 17:15 | NUR ---
PT ASLEEP IN BED. RESPONSIVE TO VERBAL AND TACTILE STIMULI. RESPIRATIONS EVEN AND UNLABORED WITH NO SOB OR RESPIRATORY DISTRESS. SKIN WARM AND DRY TO TOUCH. SAFETY MEASURES IN PLACE. WILL CONTINUE TO MONITOR
--- NOTE | 2020-09-14 19:25 | NUR ---
ENDORSED TO NIGHTSHIFT FOR CONTINUITY OF CARE. PT IS STABLE
--- NOTE | 2020-09-14 19:26 | NUR ---
RECEIVED BEDSIDE ENDORSEMENT FROM AM SHIFT RN. PT LYING IN BED, A0X4, NO SOB, NO DISTRESS, ON 15 L HF HUMIDIFIER, SAFETY MEASURES IN PLACE, PLAN OF CARE DISCUSSED, CALL LIGHT WITHIN REACH.
[2020-09-14 20:00] VITALS: BP 119/79
--- NOTE | 2020-09-14 22:04 | NUR ---
PT AWAKE, HOB ELEVATED, DUE MEDS GIVEN ORDERED, NO A/R NOTED, TOLERATED WELL, NO SOB, CALL LIGHT WITHIN REACH.
--- NOTE | 2020-09-14 22:27 | NUR ---
PICC LINE DRESSING CHANGED, TOLERATED PROCEDURE WELL. CALL LIGHT WITHIN REACH.
[2020-09-15] VITALS: BP 109/60
[2020-09-15] MEDS: ALBUTEROL SULFATE/IPRATROPIU 3 ML SOL IH SCH ×2 (01:00→20:00)
--- NOTE | 2020-09-15 02:16 | NUR ---
CHECKED PT, NO SOB, KEPT COMFORTABLE, CALL LIGHT WITHIN REACH.
[2020-09-15 04:00] VITALS: BP 111/78
[2020-09-15] MEDS: LEVOTHYROXINE 0.075 MG TAB PO SCH (06:06)
--- NOTE | 2020-09-15 06:06 | NUR ---
HOB ELEVATED, SYNTHROID PO GIVEN ORDERED, TOLERATED WELL, CALL LIGHT WITHIN REACH.
--- NOTE | 2020-09-15 07:46 | NUR ---
PT STABLE, NO ACUTE EVENTS THE WHOLE SHIFT, ENDORSED TO AM SHIFT RN FOR CONTINUITY OF CARE.
--- NOTE | 2020-09-15 07:50 | NUR ---
RECEIVED REPORT FROM NIGHT NURSE PATIENT IS AAOX4 ON 10LPM HIGH FLOW HUMIDIFIER FOR LTAC EVALUATION, SKIN INTACT AND IV INTACT AND PATENT ON LEFT UPPER ARM PICC LINE. SAFETY MEASURES IN PLACE AND CALL LIGHT WITHIN REACH. WILL CONTINUE TO MONITOR
[2020-09-15 08:00] VITALS: BP 114/74
[2020-09-15] MEDS: POLYETHYLENE GLYCOL 17 GM/PKT PO SCH ×2 (10:10→21:48)
[2020-09-15] MEDS: ASCORBIC ACID 500 MG TAB PO SCH (10:11)
[2020-09-15] MEDS: PANTOPRAZOLE 40 MG TABEC PO SCH (10:11)
[2020-09-15] MEDS: ZINC SULF 220 MG CAP PO SCH (10:11)
[2020-09-15] MEDS: FUROSEMIDE 20 MG/2 ML VIAL IVP SCH (10:12)
[2020-09-15] MEDS: ENOXAPARIN 40 MG/0.4 ML SYR SUBQ SCH (10:13)
[2020-09-15] MEDS: CEFEPIME 1,000 MG in DEXTROSE 5% 50 ML IV SCH ×2 (10:14→21:47)
--- NOTE | 2020-09-15 10:14 | NUR ---
MEDICATION DUE GIVEN VITAL SIGNS CHECK PRIOR TO MEDICATION BP 114/74 WA 105 AND OXYGEN SATURATION AT 97%. NO DISTRESS NOTED AND NO LABORED BREATHING NOTED.
[2020-09-15 12:00] VITALS: BP 121/85
--- NOTE | 2020-09-15 12:30 | NUR ---
CHECK VITAL SIGNS PATIENT IS STABLE NO DISTRESS NOTED BP 121/85 PA 108. NO LABORED BREATHING.
--- NOTE | 2020-09-15 13:00 | NUR ---
PATIENT OXYGEN LEVEL LOWERED FROM 10LPM TO 6LPM SATURATION AT 92%
--- NOTE | 2020-09-15 14:08 | NUR ---
09/15/20 RD FOLLOW UP COMPLETED PLEASE REFER TO NUTRITION ASSESSMENT UNDER CARE ACTIVITY FOR ESTIMATED NUTRITIONAL NEEDS. 1. CONTINUE REGULAR DIET TOLERATED 2. CONTINUE ENSURE TID 3. ENCOURAGE PO INTAKE 4. RD TO FOLLOW-UP 3-5 DAYS, MODERATE RISK HENRI CASTILLO, RD
[2020-09-15 16:00] VITALS: BP 116/79
--- NOTE | 2020-09-15 16:30 | NUR ---
MEDICATION DUE GIVEN CHECK VITAL SIGNS PRIOR TO MEDICATION BP 137/62 VT 106. ABLE TO FEED PATIENT AND TOLERATED WELL
--- NOTE | 2020-09-15 19:32 | NUR ---
ENDORSED TO NIGHT NURSE FOR CONTINUITY OF CARE. PT IS STABLE
[2020-09-16] MEDS: ALBUTEROL SULFATE/IPRATROPIU 3 ML SOL IH SCH ×3 (00:42→13:00)
[2020-09-16] MEDS: LEVOTHYROXINE 0.075 MG TAB PO SCH (06:23)
--- NOTE | 2020-09-16 07:30 | NUR ---
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 IV INTACT AND PATENT ON LEFT UA PICC LINE DOUBLE LUMEN, SKIN INTACT, SAFETY MEASURES IN PLACE AND CALL LIGHT WITHIN REACH. WILL CONTINUE TO MONITOR.
[2020-09-16 08:00] VITALS: BP 110/71
--- NOTE | 2020-09-16 09:30 | NUR ---
MEDICATION DUE GIVEN CHECK VITAL SIGNS PRIOR TO MEDICATION BP 110/71 OK 105 OXYGEN SATURATION 96%
[2020-09-16] MEDS: PANTOPRAZOLE 40 MG TABEC PO SCH (09:53)
[2020-09-16] MEDS: ASCORBIC ACID 500 MG TAB PO SCH (09:54)
[2020-09-16] MEDS: ZINC SULF 220 MG CAP PO SCH (09:54)
[2020-09-16] MEDS: POLYETHYLENE GLYCOL 17 GM/PKT PO SCH ×2 (09:54→20:55)
[2020-09-16] MEDS: FUROSEMIDE 20 MG/2 ML VIAL IVP SCH (09:55)
[2020-09-16] MEDS: ENOXAPARIN 40 MG/0.4 ML SYR SUBQ SCH (09:55)
[2020-09-16] MEDS: CEFEPIME 1,000 MG in DEXTROSE 5% 50 ML IV SCH ×2 (09:56→20:09)
[2020-09-16 12:00] VITALS: BP 100/69
--- NOTE | 2020-09-16 12:00 | NUR ---
CHECK VITAL SIGNS BP 100/69 HI 107 PATIENT IS STABLE AND NO DISTRESS NOTED.
--- NOTE | 2020-09-16 15:40 | NUR ---
OXYGEN LEVEL LOWERED TO 4LPM HIGH FLOW HUMIDIFIER PATIENT OXYGEN SATURATION AT 88% DR DIRK DEVINE.
[2020-09-16 16:00] VITALS: BP 103/70
--- NOTE | 2020-09-16 16:26 | NUR ---
PATIENT OXYGEN LEVEL PUT ON 6LPM HIGH FLOW HUMIDIFIER OXYGEN SATURATION AT 92%.
--- NOTE | 2020-09-16 19:13 | NUR ---
ENDORSED TO NIGHT NURSE FOR CONTINUITY OF CARE. PT IS STABLE
--- NOTE | 2020-09-16 19:14 | NUR ---
RECEIVED REPORT FROM DAY GAY DUGAN. PT AOX4 ON 6L HIFLOW WITH HUMIDIFIER. NO S/S RESPIRATORY DISTRESS. NO C/O PAIN AT THIS TIME. HAS HARRY PICC LINE, PATENT INTACT, S.L. SAFETY MEASURES IN PLACE. CALL LIGHT WITHIN REACH. WILL CONTINUE TO MONITOR
[2020-09-16 20:00] VITALS: BP 115/75
--- NOTE | 2020-09-16 20:15 | NUR ---
ENDORSED PT TO NIGHT NURSE XAVI FOR CONTINUITY OF CARE, PT IS IN STABLE CONDITION
[2020-09-17] VITALS: BP 126/69
[2020-09-17 04:00] VITALS: BP 117/48
[2020-09-17] MEDS: LEVOTHYROXINE 0.075 MG TAB PO SCH (05:37)
--- NOTE | 2020-09-17 08:13 | NUR ---
RECEIVED PATIENT IN BED RESTING COMFORTABLY, PRESENTS CALM AND COOPERATIVE, ABLE TO EXPRESS NEEDS. NO C/O OR S/SX OF PAIN OR DISCOMFORT. RESPIRATIONS ARE NON-LABORED. SKIN IS CLEAN, WARM AND DRY TO TOUCH. IV ACCESS IS PATENT, DRY AND INTACT. BED IS LOCKED IN LOWEST POSITION, CALL LIGHT IN REACH. NURSE WILL CONTINUE CARE AND MONITOR FOR CHANGES IN STATUS.
[2020-09-17] MEDS: CEFEPIME 1,000 MG in DEXTROSE 5% 50 ML IV SCH ×2 (09:27→22:25)
[2020-09-17] MEDS: ZINC SULF 220 MG CAP PO SCH (09:28)
[2020-09-17] MEDS: FUROSEMIDE 20 MG/2 ML VIAL IVP SCH (09:28)
[2020-09-17] MEDS: POLYETHYLENE GLYCOL 17 GM/PKT PO SCH ×2 (09:28→22:25)
[2020-09-17] MEDS: ENOXAPARIN 40 MG/0.4 ML SYR SUBQ SCH (09:29)
[2020-09-17 11:02] VITALS: BP 117/62
--- NOTE | 2020-09-17 11:33 | NUR ---
LOC AWAKE AND ALERT VERBALLY RESPONSIVE ON SUPPLEMENTAL OXYGEN AT 15LPM VIA NON REBREATHER CHANGED OXYGEN DEVICE AND TITRATED FIO2 TO OXYGEN (SIMPLE) MASK WITH 13 LPM SATURATION 92% NUGENT/RN NOTIFIED
--- NOTE | 2020-09-17 11:38 | NUR ---
PATIENT RESTING COMFORTABLY, NO C/O PAIN OR DISCOMFORT. RESPIRATIONS NON-LABORED. SKIN IS CLEAN, WARM AND DRY TO TOUCH. IV ACCESS IS PATENT, NO S/SX OF REDNESS OR SWELLING. BED IS LOCKED IN LOWEST POSITION, CALL LIGHT IN REACH. NURSE WILL CONTINUE TO MONITOR FOR CHANGES IN STATUS.
--- NOTE | 2020-09-17 16:12 | NUR ---
ASLEEP RESTING COMFORTABLY GOOD CHEST RISE SATURATION 97% ON SUPPLEMENTAL OXYGEN ATB 13 LPM VIA ADULT SIMPLE MASK TITRATED FIO2 TO 11 LPM DATABASES COMPUTER CONSULTANT TO MONITOR NUGENT/RN NOTIFIED
--- NOTE | 2020-09-17 19:05 | NUR ---
PATIENT RESTING COMFORTABLY, NO C/O PAIN OR DISCOMFORT. RESPIRATIONS ARE NON-LABORED. SKIN IS CLEAN, WARM AND DRY TO TOUCH. IV ACCESS IS PATENT, DRY AND SECURE. BED IS LOCKED IN LOWEST POSITION, CALL LIGHT IN REACH. PATIENT ENDORSED TO POLYMER MATERIALS CONSULTANT NURSE.
[2020-09-17 20:00] VITALS: BP 111/70
[2020-09-18] VITALS: BP 112/76
--- NOTE | 2020-09-18 | NUR ---
MADE ROUNDS , NO S/SX OF ACUTE DISTRESS NOTED - O2 SAT WNL .
--- NOTE | 2020-09-18 02:00 | NUR ---
SLEEPING - CHEST RISE AND FALL EQUALLY .
--- NOTE | 2020-09-18 03:00 | NUR ---
endorsed to alicia for continuity of care - pt - stable .
--- NOTE | 2020-09-18 03:00 | NUR ---
RECEIVED PT SLEEPING, ON O2 AT 10 L VIA MASK, NO RESP DISTRESS NOTED, IVF INFUSING WELL AT TKO RATE, MAINTAIN ON DROPLET PRECAUTION FOR COVID POSITIVE, SAFETY MEASURES IN PLACE, CALL LIGHT WITHIN REACH.
[2020-09-18 04:00] VITALS: BP 108/76
[2020-09-18] MEDS: LEVOTHYROXINE 0.075 MG TAB PO SCH (05:56)
--- NOTE | 2020-09-18 06:00 | NUR ---
PT SLEEPING, EASILY AROUSABLE, NO RESP DISTRESS NOTED, DUE PO MEDICATION GIVEN, TOLERATED WELL, MONITORED CLOSELY.
--- NOTE | 2020-09-18 07:20 | NUR ---
PT SLEEPING, NO SIGNS OF RESP DISTRESS, REPORT GIVEN TO RN RENUKA FOR CONTINUITY OF CARE.
--- NOTE | 2020-09-18 07:48 | NUR ---
RECEIVED PATIENT IN BED RESTING COMFORTABLY. PATIENT PRESENTS CALM AND COOPERATIVE, ABLE TO EXPRESS NEEDS. NO C/O PAIN OR DISCOMFORT. RESPIRATIONS ARE NON- LABORED. SKIN IS CLEAN, WARM AND DRY TO TOUCH. IV ACCESS IS PATENT, DRY, SECURE AND INTACT. NO S/SX OF REDNESS OR SWELLING AT SITE. HOB IS ELEVATED AND LOCKED IN THE LOWEST POSITION, CALL LIGHT IN REACH. NURSE WILL CONTINUE CARE AND MONITOR FOR CHANGES IN STATUS.
[2020-09-18] MEDS: POLYETHYLENE GLYCOL 17 GM/PKT PO SCH ×3 (09:08→22:53)
[2020-09-18] MEDS: CEFEPIME 1,000 MG in DEXTROSE 5% 50 ML IV SCH ×2 (09:08→22:53)
[2020-09-18] MEDS: FUROSEMIDE 20 MG/2 ML VIAL IVP SCH (09:08)
[2020-09-18] MEDS: ENOXAPARIN 40 MG/0.4 ML SYR SUBQ SCH (09:18)
[2020-09-18 11:00] VITALS: BP 118/62
--- NOTE | 2020-09-18 13:13 | NUR ---
PATIENT RESTING COMFORTABLY, NO C/O PAIN OR DISCOMFORT. RESPIRATIONS ARE NON-LABORED. SKIN IS CLEAN WARM AND DRY TO TOUCH. IV ACCESS IS PATENT, DRY AND INTACT. BED IS LOCKED IN LOWEST POSITION, CALL LIGHT IN REACH. NURSE WILL CONTINUE CARE AND MONITOR FOR CHANGES IN STATUS.
--- NOTE | 2020-09-18 19:02 | NUR ---
PATIENT RESTING COMFORTABLY, NO C/O PAIN OR DISCOMFORT. RESPIRATIONS ARE NON-LABORED. SKIN IS CLEAN, WARM AND DRY TO TOUCH/ IV ACCESS IS PATENT, DRY AND SECURED, NO S/SX OF REDNESS OR SWELLING OBSERVED. BED IS LOCKED IN LOWEST POSITION, CALL LIGHT IN REACH. PATIENT ENDORSED TO FRIT MAKER NURSE FOR CONTINUOUS CARE.
--- NOTE | 2020-09-18 19:03 | NUR ---
RECEIVED BEDSIDE ENDORSEMENT FROM AM SHIFT RN. AOX4, NO SOB, ON 10 L SIMPLE MASK, NO DISTRESS, SAFETY MEASURES IN PLACE, PLAN OF CARE DISCUSSED, CALL LIGHT WITHIN REACH.
[2020-09-18 20:00] VITALS: BP 114/58
--- NOTE | 2020-09-18 23:09 | NUR ---
DUE MEDS GIVEN, PT REFUSED MIRALAX, EDUCATED ABOUT THE IMPORTANCE OF TAKING THE MED BUT PT STILL REFUSED.
[2020-09-18] MEDS: LIDOCAINE 5% 1 EA PATCH TP SCH (23:52)
[2020-09-19] VITALS: BP 130/75
[2020-09-19 04:00] VITALS: BP 115/65
[2020-09-19] MEDS: LEVOTHYROXINE 0.075 MG TAB PO SCH (06:01)
--- NOTE | 2020-09-19 06:05 | NUR ---
HOB ELEVATED, SYNTHROID GIVEN ORDERED, TOLERATED WELL, CALL LIGHT WITHIN REACH.
--- NOTE | 2020-09-19 07:40 | NUR ---
PT STABLE, NO ACUTE CHANGES THE WHOLE SHIFT, ENDORSED TO AM SHIFT RN.
[2020-09-19 08:00] VITALS: BP 118/70
[2020-09-19] MEDS: LIDOCAINE 5% 1 EA PATCH TP SCH (09:00)
[2020-09-19] MEDS: CEFEPIME 1,000 MG in DEXTROSE 5% 50 ML IV SCH (09:11)
[2020-09-19] MEDS: POLYETHYLENE GLYCOL 17 GM/PKT PO SCH ×2 (09:11→21:44)
[2020-09-19] MEDS: FUROSEMIDE 20 MG/2 ML VIAL IVP SCH (09:11)
[2020-09-19] MEDS: ENOXAPARIN 40 MG/0.4 ML SYR SUBQ SCH (09:13)
--- NOTE | 2020-09-19 09:24 | NUR ---
SCHEDULED MEDICATIONS GIVEN, EDUCATION PROVIDED. VERBALIZED UNDERSTANDING. NO ACUTE DISTRESS NOTED. SAFETY MEASURES IN PLACE, WILL CONTINUE TO MONITOR.
[2020-09-19 12:00] VITALS: BP 112/74
[2020-09-19 16:00] VITALS: BP 110/78
[2020-09-19 16:45] LABS: BASOPHILS # (AUTO) 0.1 K/uL (0.00-0.22); BASOPHILS % (AUTO) 1.6 % (0.0-2.0); EOSINOPHILS # (AUTO) 0.3 K/uL (0-0.4); EOSINOPHILS % (AUTO) 4.9 % (0.0-4.0); HEMATOCRIT 40.7 % (36-52); HEMOGLOBIN 13.5 g/dL (12.0-18.0); LYMPHOCYTES # (AUTO) 1.1 K/uL (2.0-11.5); LYMPHOCYTES % (AUTO) 19.5 % (20.5-51.1); MEAN CORPUSCULAR HEMOGLOBIN 35 pg (27-31); MEAN CORPUSCULAR HGB CONC 33 g/dL (33-37); MEAN CORPUSCULAR VOLUME 105.4 fL (80-94); MONOCYTES # (AUTO) 0.7 K/uL (0.8-1.0); MONOCYTES % (AUTO) 11.3 % (1.7-9.3); NEUTROPHILS # (AUTO) 3.7 K/uL (1.8-7.7); NEUTROPHILS % (AUTO) 62.7 % (42.2-75.2); PLATELET COUNT (AUTO) 283 K/uL (140-450); RED BLOOD CELL COUNT(AUTO) 3.86 MIL/uL (4.20-6.10); RED CELL DISTRIBUTION WIDTH 14.5 % (11.6-13.7); WHITE BLOOD COUNT (AUTO) 5.9 K/uL (4.8-10.8)
[2020-09-19 17:02] LABS: ALBUMIN 2.8 g/dL (3.4-5.0); ANION GAP 4.6 (8-16); CARBON DIOXIDE 37.6 mmol/L (21-32); CREATININE 0.7 mg/dL (0.6-1.3); POTASSIUM 4.2 mmol/L (3.5-5.1); TOTAL BILIRUBIN 0.3 mg/dL (0.0-1.0)
--- NOTE | 2020-09-19 19:30 | NUR ---
RECEIVED BEDSIDE ENDORSEMENT FROM AM SHIFT RN. AOX4, ON 15 L SIMPLE MASK, NO SOB, NO DISTRESS, SAFETY MEASURES IN PLACE, PLAN OF CARE DISCUSSED, CALL LIGHT WITHIN REACH.
[2020-09-19 20:00] VITALS: BP 101/64
--- NOTE | 2020-09-19 21:45 | NUR ---
DUE MEDS GIVEN ORDERED, TOLERATED WELL, CALL LIGHT WITHIN REACH, NO DISTRESS NOTED.
[2020-09-20] VITALS: BP 113/59
[2020-09-20 04:00] VITALS: BP 105/72
--- NOTE | 2020-09-20 07:45 | NUR ---
PT STABLE, NO ACUTE CHANGES/EVENTS THE WHOLE SHIFT, ENDORSED TO AM SHIFT RN FOR CONTINUITY OF CARE.
--- NOTE | 2020-09-20 07:46 | NUR ---
RECEIVED ENDORSEMENT FROM BOWLING BALL GRADER RN PT IS STABLE REMAINS ON TRACH TO VENT WITH FIO2 40% WITH SPO2 97%. WILL CONTINUE WITH POC. Addendum: 09/20/20 at 1138 by Lisbet Giron RN WRONG PATIENT PT STABLE ON 10L VIA MASK. WILL CONTINUE WITH POC. Addendum: 09/20/20 at 1143 by Lisbet Giron RN DURING BEDSIDE REPORT PT WAS UPSET THAT HE HAD BEEN SITTING ON BEDPAN FOR SOMETIME. PT WAS IMMEDIATELY CHANGED AND ASSISTED AT THIS TIME. BEDPAN WAS REMOVED AND PROVISION OF CARE PROVIDED. PT INQUIRED ABOUT WHY HE HAS NOT RECEIVED HIS LEVOTHYROXINE. WILL F/U.
[2020-09-20 08:00] VITALS: BP 100/66
[2020-09-20 08:34] LABS: BASOPHILS # (AUTO) 0.1 K/uL (0.00-0.22); BASOPHILS % (AUTO) 1.9 % (0.0-2.0); EOSINOPHILS # (AUTO) 0.4 K/uL (0-0.4); EOSINOPHILS % (AUTO) 6.2 % (0.0-4.0); HEMATOCRIT 40.5 % (36-52); HEMOGLOBIN 13.5 g/dL (12.0-18.0); LYMPHOCYTES # (AUTO) 1.5 K/uL (2.0-11.5); LYMPHOCYTES % (AUTO) 24.9 % (20.5-51.1); MEAN CORPUSCULAR HEMOGLOBIN 35 pg (27-31); MEAN CORPUSCULAR HGB CONC 33 g/dL (33-37); MEAN CORPUSCULAR VOLUME 105.1 fL (80-94); MONOCYTES # (AUTO) 0.7 K/uL (0.8-1.0); MONOCYTES % (AUTO) 12.6 % (1.7-9.3); NEUTROPHILS # (AUTO) 3.2 K/uL (1.8-7.7); NEUTROPHILS % (AUTO) 54.4 % (42.2-75.2); PLATELET COUNT (AUTO) 292 K/uL (140-450); RED BLOOD CELL COUNT(AUTO) 3.86 MIL/uL (4.20-6.10); RED CELL DISTRIBUTION WIDTH 14.6 % (11.6-13.7); WHITE BLOOD COUNT (AUTO) 5.9 K/uL (4.8-10.8)
[2020-09-20 08:41] LABS: ALBUMIN 2.9 g/dL (3.4-5.0); ANION GAP 6.9 (8-16); CARBON DIOXIDE 36.7 mmol/L (21-32); CREATININE 0.8 mg/dL (0.6-1.3); POTASSIUM 4.6 mmol/L (3.5-5.1); TOTAL BILIRUBIN 0.4 mg/dL (0.0-1.0)
[2020-09-20] MEDS ORDERED: LEVOTHYROXINE 0.025 MG TAB PO SCH (09:30)
--- NOTE | 2020-09-20 09:30 | NUR ---
PT CONCERNED ABOUT NOT RECEIVING LEVOTHYROXINE, F/U WITH LAB AND ORDERED . ORDER HAS SINCE BEEN RENEWED SCHEDULED MEDICATIONS GIVEN. HOWEVER SINCE MEDICATION IS LATE PT STATED HE WISHES NOT TO TAKE THE LEVOTHYROXINE UNTIL ISMA. ORDER IS NOW RENEWED. PT AND FAMILY CONCERNED ABOUT NOT RECEIVING IMMEDIATE CARE. SPOKE WITH HOUSE SUP. LUNG SOUNDS DIMINISHED. ABD IS FLAT AND NONTENDER WITH ACTIVE BS X 4. SKIN INTACT. PT HAS LEFT UPPER ARM PICC THAT IS INTACT AND PATENT. CALL LIGHT WITHIN REACH. .
[2020-09-20] MEDS: FUROSEMIDE 20 MG/2 ML VIAL IVP SCH (09:35)
[2020-09-20] MEDS: POLYETHYLENE GLYCOL 17 GM/PKT PO SCH ×2 (09:35→22:05)
[2020-09-20] MEDS: ENOXAPARIN 40 MG/0.4 ML SYR SUBQ SCH (09:43)
[2020-09-20] MEDS: LIDOCAINE 5% 1 EA PATCH TP SCH (09:53)
[2020-09-20 12:00] VITALS: BP 102/65
--- NOTE | 2020-09-20 12:30 | NUR ---
PT RESTING IN BED ALL NEEDS MET.
--- NOTE | 2020-09-20 14:30 | NUR ---
DR CHRISTY NOTIFIED OF EXPIRING ANTIBIOTIC, WILL REVIEW AND ORDER IF NEEDED.
--- NOTE | 2020-09-20 15:35 | NUR ---
09/20/20 RD FOLLOW UP COMPLETED. PLEASE REFER TO NUTRITION ASSESSMENT UNDER CARE ACTIVITY FOR ESTIMATED NUTRITIONAL NEEDS. 1. CONTINUE REGULAR DIET TOLERATED 2. CONTINUE ENSURE TID 3. ENCOURAGE PO INTAKE 4. RD TO FOLLOW-UP 3-5 DAYS, MODERATE RISK DAV KAY, RD
[2020-09-20 16:00] VITALS: BP 103/75
--- NOTE | 2020-09-20 16:39 | NUR ---
RESTING IN BED ALL NEEDS MET.
--- NOTE | 2020-09-20 18:39 | NUR ---
PT REQUESTED BEDPAN, PT WAS ASSISTED ALL OTHER NEEDS MET AT THIS TIME. REMAINS ON 10L VIA MASK NO RESPIRATORY DISTRESS.
--- NOTE | 2020-09-20 19:00 | NUR ---
Patient educated to RN plan of care. Discussed fall and safety precautions. RN educated patient to medication regimen action purpose and side effects. Patient receptive to RN plan of care. VSS.
[2020-09-20 20:00] VITALS: BP 106/68
[2020-09-21] VITALS: BP 104/65
[2020-09-21 04:00] VITALS: BP 103/75
--- NOTE | 2020-09-21 05:25 | NUR ---
Patient sleeping during rounding, fall and safety precautions maintained. Assisted with ADLs as needed. Medication regimen ongoing. VSS. No acute distress noted. Addendum: 09/21/20 at 1237 by Liz Urbina RN DC PLANNING: RECEIVED A CALL FROM [facility] SPOKE WITH DEE LOTT DENIED THE LTAC EVAL. CALLED [facility] [phone] SPOKE WITH BREEZY CARVAJAL PT CAN GO TO [facility] I EXPLAINED NO SNF WILL TAKE PATIENT WITH 10L AND [facility] AC[facility] WILL TAKE ONLY TRACH AND G-TUBE PER BREEZY LOTT DC INVESTMENT ACCOUNTING CLERK IS WORKING ON IT AND NEEDS 2 COVID TEST. CM TO FOLLOW
[2020-09-21] MEDS: LEVOTHYROXINE 0.025 MG TAB PO SCH (05:36)
[2020-09-21 07:04] LABS: BASOPHILS # (AUTO) 0.1 K/uL (0.00-0.22); BASOPHILS % (AUTO) 1.1 % (0.0-2.0); EOSINOPHILS # (AUTO) 0.3 K/uL (0-0.4); EOSINOPHILS % (AUTO) 4.2 % (0.0-4.0); HEMATOCRIT 41.4 % (36-52); HEMOGLOBIN 13.7 g/dL (12.0-18.0); LYMPHOCYTES # (AUTO) 1.7 K/uL (2.0-11.5); LYMPHOCYTES % (AUTO) 22.7 % (20.5-51.1); MEAN CORPUSCULAR HEMOGLOBIN 35 pg (27-31); MEAN CORPUSCULAR HGB CONC 33 g/dL (33-37); MEAN CORPUSCULAR VOLUME 105.1 fL (80-94); MONOCYTES # (AUTO) 0.7 K/uL (0.8-1.0); MONOCYTES % (AUTO) 9.9 % (1.7-9.3); NEUTROPHILS # (AUTO) 4.6 K/uL (1.8-7.7); NEUTROPHILS % (AUTO) 62.1 % (42.2-75.2); PLATELET COUNT (AUTO) 275 K/uL (140-450); RED BLOOD CELL COUNT(AUTO) 3.94 MIL/uL (4.20-6.10); RED CELL DISTRIBUTION WIDTH 14.6 % (11.6-13.7); WHITE BLOOD COUNT (AUTO) 7.5 K/uL (4.8-10.8)
[2020-09-21 07:35] LABS: ANION GAP 6.2 (8-16); CARBON DIOXIDE 37.4 mmol/L (21-32); CREATININE 0.7 mg/dL (0.6-1.3); POTASSIUM 4.6 mmol/L (3.5-5.1); TOTAL BILIRUBIN 0.4 mg/dL (0.0-1.0)
[2020-09-21 08:00] VITALS: BP 118/78
--- NOTE | 2020-09-21 08:02 | NUR ---
PT STATES NO PAIN AND TOLERATING MASK 10LPM.
[2020-09-21] MEDS: POLYETHYLENE GLYCOL 17 GM/PKT PO SCH ×2 (09:00→22:22)
[2020-09-21] MEDS: LIDOCAINE 5% 1 EA PATCH TP SCH (09:53)
[2020-09-21] MEDS: ENOXAPARIN 40 MG/0.4 ML SYR SUBQ SCH (09:54)
[2020-09-21] MEDS: FUROSEMIDE 20 MG/2 ML VIAL IVP SCH (09:54)
--- NOTE | 2020-09-21 10:13 | NUR ---
PT TOLERATING MASK 10 LPM, STATES NO PAIN. PT USING INCENTIVE SPIROMETER. PT STATED LIDOCAINE PATCH APPLIED ON CHEST IS EFFECTIVE FOR PAIN RELIEF.
[2020-09-21] MEDS ORDERED: ACETAMINOPHEN 325 MG TAB PO PRN (11:20)
[2020-09-21 12:00] VITALS: BP 112/78
--- NOTE | 2020-09-21 12:44 | NUR ---
PT STATED 5/10 ACHING TOLLIVER THAT WAS FRONTAL. PT STATED EFFECTIVE PAIN RELIEF AND CONTINUED TO SLEEP COMFORTABLY. TOLERATING MASK 10 LPM.
--- NOTE | 2020-09-21 14:43 | NUR ---
PT STATED NO PAIN OR DISCOMFORT. PT PROACTIVE W/ CARE, USING INCENTIVE SPIROMETER AND DONG SLOW LEG EXERCISES IN BED. STILL GETS FATIGUED EASILY, THUS STATED TO NOT EXERT MOTIONS.
[2020-09-21 16:00] VITALS: BP 117/79
--- NOTE | 2020-09-21 16:14 | NUR ---
DC PLANNING: SPOKE WITH PT'S FAMILY SON AND FOR THEIR CONCERNS AND ISSUES, THE COMPLAINT FOR THE CM WAS FOR [facility] CM ARMANDO NEVER CALLED THEM BACK . I WENT TO THE FLOOR TO PT'S ROOM WITH NURSE KELVIN WHO SPEAKS POLISH EXPLAINED AND ADDRESSED THE ISSUES . PT ALERT AND ORIENTED NO S/S OF RESP DISTRESS NOTED ON FACE MASK 10L. EXPLAIN TO THE FAMILY AND PATIENT THAT [facility] DENIED THE [facility] REFERRAL AND WANTED PT TO GO TO SNF. PER DOESN'T WANT HIM TO GO TO SNF PREFERRED HOME WITH HOME HEALTH. WILL KEEP MONITORING THE O2 SAT AND FOLLOW UP CM TO FOLLOW. PT'S AND SON VERBALIZED UNDERSTANDING . Addendum: 09/24/20 at 1031 by Dana Oneal CM DC AGENCY DIRECTOR: RECEIVED ORDER FOR HOME O2 FAXED TO [facility] WILL FOLLOW UP. Addendum: 09/24/20 at 1442 by Dana Oneal CM ALBERT GOMEZNER: FOLLOWED UP WITH MATEO TIJERINA FROM [facility] [phone] SHE STATED THE ORDER HAS BEEN SENT OUT TO [facility] [phone] BUT SHE DID NOT HAVE AN ETA. FOLLOWED UP WITH ALFONZO AT [facility] SHE RECEIVED ORDER FROM [facility] AROUND 2:00 PM THEY ARE STILL WORKING ON IT. Addendum: 09/24/20 at 1656 by Dana Oneal CM ALBERT GOMEZNER: CM RECEIVED CALL FROM BREEZY AT [facility] [phone] WILL DELIVER HOME O2 TO BEDSIDE.
--- NOTE | 2020-09-21 16:55 | NUR ---
PT STATED NO PAIN, WEANED O2 MASK TO 8 LPM. O2 SAT AT 93-94%.
--- NOTE | 2020-09-21 18:03 | NUR ---
PT STATES NO PAIN AND TOLERATING MASK 8LPM. PT STABLE AND WILL ENDORSE CARE TO PRODUCTION RECORDER RN.
[2020-09-21 20:00] VITALS: BP 106/74
[2020-09-22] VITALS: BP 114/76
[2020-09-22 04:00] VITALS: BP 116/76
[2020-09-22 06:34] LABS: BASOPHILS # (AUTO) 0.1 K/uL (0.00-0.22); BASOPHILS % (AUTO) 1.1 % (0.0-2.0); EOSINOPHILS # (AUTO) 0.3 K/uL (0-0.4); EOSINOPHILS % (AUTO) 5.3 % (0.0-4.0); HEMATOCRIT 41.5 % (36-52); HEMOGLOBIN 13.9 g/dL (12.0-18.0); LYMPHOCYTES # (AUTO) 1.5 K/uL (2.0-11.5); LYMPHOCYTES % (AUTO) 24.4 % (20.5-51.1); MEAN CORPUSCULAR HEMOGLOBIN 35 pg (27-31); MEAN CORPUSCULAR HGB CONC 33 g/dL (33-37); MEAN CORPUSCULAR VOLUME 105.1 fL (80-94); MONOCYTES # (AUTO) 0.7 K/uL (0.8-1.0); MONOCYTES % (AUTO) 10.7 % (1.7-9.3); NEUTROPHILS # (AUTO) 3.6 K/uL (1.8-7.7); NEUTROPHILS % (AUTO) 58.5 % (42.2-75.2); PLATELET COUNT (AUTO) 267 K/uL (140-450); RED BLOOD CELL COUNT(AUTO) 3.95 MIL/uL (4.20-6.10); RED CELL DISTRIBUTION WIDTH 14.6 % (11.6-13.7); WHITE BLOOD COUNT (AUTO) 6.2 K/uL (4.8-10.8)
[2020-09-22] MEDS: LEVOTHYROXINE 0.025 MG TAB PO SCH (06:48)
--- NOTE | 2020-09-22 07:25 | NUR ---
RECEIVED ENDORSEMENT FROM CHISEL TRIMMER AWAKE, ALERT, ORIENTEDX4, WITH O2 AT 8L/MIN VIA SIMPLE MASK, [id number]%, NOT IN DISTRESS NOTED. WITH PICC LINE AT LEFT UPPER ARM NOTED. SAFETY MEASURES IN PLACE AND CONTINUE MONITOR.
[2020-09-22 08:00] VITALS: BP 116/72
[2020-09-22 08:02] LABS: ALBUMIN 3.1 g/dL (3.4-5.0); ANION GAP 8.2 (8-16); CARBON DIOXIDE 36.8 mmol/L (21-32); CREATININE 0.7 mg/dL (0.6-1.3); TOTAL BILIRUBIN 0.4 mg/dL (0.0-1.0)
[2020-09-22] MEDS: FUROSEMIDE 20 MG/2 ML VIAL IVP SCH (10:35)
--- NOTE | 2020-09-22 10:35 | NUR ---
FULLY AWAKE AND ALERT, DUE MEDICATION GIVEN
[2020-09-22] MEDS: LIDOCAINE 5% 1 EA PATCH TP SCH (10:36)
[2020-09-22] MEDS: ENOXAPARIN 40 MG/0.4 ML SYR SUBQ SCH (10:36)
[2020-09-22] MEDS: POLYETHYLENE GLYCOL 17 GM/PKT PO SCH ×2 (10:49→22:02)
[2020-09-22 12:00] VITALS: BP 121/75
--- NOTE | 2020-09-22 12:46 | NUR ---
PASSED MODERATE AMOUNT OF SOFT BROWNISH STOOL, SULMA-ANAL CARE DONE DONE.
--- NOTE | 2020-09-22 14:20 | NUR ---
FULLY AWAKE AND ALERT, NOT IN DISTRESS NOTED
[2020-09-22 16:00] VITALS: BP 100/72
--- NOTE | 2020-09-22 16:12 | NUR ---
AWAKE AND ALERT VERBALLY RESPONSIVE SATURATION 95% ON SUPPLEMENTAL OXYGEN AT 8 LPM VIA ADULT SIMPLE MASK TITRATED FIO2 TO 7 LPM POTATO PEELER TO MONITOR AND TITRATE TOLERATED WALLACEN/RN NOTIFIED Addendum: 09/22/20 at 1725 by Scott Bailey RT ([id number]) VAPOTHERM HFNC NO LONGER REQUIRED AT THIS TIME REMOVED FORM BEDSIDE
--- NOTE | 2020-09-22 17:10 | NUR ---
O2 AT 7L/MIN VIA SIMPLE FACE MASK, [id number]-97% NOTED, NOT IN DISTRESS
--- NOTE | 2020-09-22 18:11 | NUR ---
DINNER SERVED, NOT IN DISTRESS NOTED
--- NOTE | 2020-09-22 19:25 | NUR ---
ENDORSED TO DYE TUB OPERATOR IN STABLE CONDITION FOR CONTINUITY OF CARE
[2020-09-22 20:00] VITALS: BP 100/72
[2020-09-23] VITALS: BP 100/72
[2020-09-23] MEDS: LEVOTHYROXINE 0.025 MG TAB PO SCH (00:32)
[2020-09-23 04:00] VITALS: BP 100/72
[2020-09-23 06:44] LABS: BASOPHILS # (AUTO) 0.1 K/uL (0.00-0.22); BASOPHILS % (AUTO) 1.3 % (0.0-2.0); EOSINOPHILS # (AUTO) 0.3 K/uL (0-0.4); EOSINOPHILS % (AUTO) 5.6 % (0.0-4.0); HEMATOCRIT 42.2 % (36-52); LYMPHOCYTES # (AUTO) 1.4 K/uL (2.0-11.5); LYMPHOCYTES % (AUTO) 22.5 % (20.5-51.1); MEAN CORPUSCULAR HEMOGLOBIN 35 pg (27-31); MEAN CORPUSCULAR HGB CONC 33 g/dL (33-37); MEAN CORPUSCULAR VOLUME 104.2 fL (80-94); MONOCYTES # (AUTO) 0.8 K/uL (0.8-1.0); MONOCYTES % (AUTO) 13.3 % (1.7-9.3); NEUTROPHILS # (AUTO) 3.5 K/uL (1.8-7.7); NEUTROPHILS % (AUTO) 57.3 % (42.2-75.2); PLATELET COUNT (AUTO) 239 K/uL (140-450); RED BLOOD CELL COUNT(AUTO) 4.05 MIL/uL (4.20-6.10); RED CELL DISTRIBUTION WIDTH 14.1 % (11.6-13.7); WHITE BLOOD COUNT (AUTO) 6.2 K/uL (4.8-10.8)
--- NOTE | 2020-09-23 07:25 | NUR ---
RECEIVED ENDORSEMENT FROM COMPENSATION SPECIALIST AWAKE, ALERT, ORIENTEDX4, WITH O2 AT 7L/MIN VIA SIMPLE MASK, I8CCH-89%, NOT IN DISTRESS NOTED. WITH PICC LINE AT LEFT UPPER ARM NOTED. SAFETY MEASURES IN PLACE AND CONTINUE MONITOR.
[2020-09-23 08:00] VITALS: BP 117/79
[2020-09-23 08:10] LABS: ALBUMIN 3.1 g/dL (3.4-5.0); ANION GAP 9.8 (8-16); CARBON DIOXIDE 32.3 mmol/L (21-32); CREATININE 0.7 mg/dL (0.6-1.3); POTASSIUM 4.1 mmol/L (3.5-5.1); TOTAL BILIRUBIN 0.4 mg/dL (0.0-1.0)
[2020-09-23] MEDS: FUROSEMIDE 20 MG/2 ML VIAL IVP SCH (08:27)
[2020-09-23] MEDS: ENOXAPARIN 40 MG/0.4 ML SYR SUBQ SCH (08:27)
[2020-09-23] MEDS: LIDOCAINE 5% 1 EA PATCH TP SCH (08:28)
[2020-09-23] MEDS: POLYETHYLENE GLYCOL 17 GM/PKT PO SCH ×2 (08:29→22:11)
--- NOTE | 2020-09-23 08:37 | NUR ---
FULLY AWAKE AND ALERT, DUE MEDICATION GIVEN
--- NOTE | 2020-09-23 09:42 | NUR ---
WATER OFFERED, TOLERATED WELL
[2020-09-23 12:00] VITALS: BP 118/78
--- NOTE | 2020-09-23 12:13 | NUR ---
RT CHANGED TO OXYMIZER AT 8L/MIN, [id number]-21%, NOT IN DISTRESS NOTED
--- NOTE | 2020-09-23 14:23 | NUR ---
MOOK FULL OF URINE, SULMA-ANAL CARE DONE Addendum: 09/23/20 at 1958 by Naehd Capps RN AND PASSED LARGE AMOUNT OF FORMED SOFT.
--- NOTE | 2020-09-23 15:00 | NUR ---
AWAKE AND ALERT VERBALLY RESPONSIVE GOOD CHEST RISE AND AERATION THROUGHOUT BILATERAL LUNGS HECK AIRWAY PATENT SATURATION 98% ON SUPPLEMENTAL OXYGEN AT 7 LPM VIA ADULT SIMPLE MASK CHANGED OXYGEN DEVICE TO NASAL CANNULA AT 6 LPM WITH HUMIDIFIER RES COUNSELOR TO MONITOR
--- NOTE | 2020-09-23 15:10 | NUR ---
AWAKE AND ALERT STABLE NO DISTRESS NOTED GOOD CHEST RISE TOLERATING HUMIDIFIED SUPPLEMENTAL OXYGEN AT 6 LPM VIA NASAL CANNULA SATURATION 94%
[2020-09-23 16:00] VITALS: BP 123/79
--- NOTE | 2020-09-23 17:38 | NUR ---
FULLY AWAKE AND ALERT, NOT IN DISTRESS NOTED.
--- NOTE | 2020-09-23 19:25 | NUR ---
ENDORSED TO GLASS WASHER AND CARRIER IN STABLE CONDITION FOR CONTINUITY OF CARE
[2020-09-23 20:00] VITALS: BP 116/74
[2020-09-24] VITALS: BP 122/81
[2020-09-24 04:00] VITALS: BP 105/77
[2020-09-24] MEDS: LEVOTHYROXINE 0.025 MG TAB PO SCH (06:30)
[2020-09-24 06:33] LABS: BASOPHILS # (AUTO) 0.1 K/uL (0.00-0.22); BASOPHILS % (AUTO) 1.2 % (0.0-2.0); EOSINOPHILS # (AUTO) 0.4 K/uL (0-0.4); EOSINOPHILS % (AUTO) 7.2 % (0.0-4.0); HEMATOCRIT 40.7 % (36-52); HEMOGLOBIN 13.7 g/dL (12.0-18.0); LYMPHOCYTES # (AUTO) 1.1 K/uL (2.0-11.5); LYMPHOCYTES % (AUTO) 19.9 % (20.5-51.1); MEAN CORPUSCULAR HEMOGLOBIN 35 pg (27-31); MEAN CORPUSCULAR HGB CONC 34 g/dL (33-37); MEAN CORPUSCULAR VOLUME 103.5 fL (80-94); MONOCYTES # (AUTO) 0.7 K/uL (0.8-1.0); MONOCYTES % (AUTO) 13.2 % (1.7-9.3); NEUTROPHILS # (AUTO) 3.2 K/uL (1.8-7.7); NEUTROPHILS % (AUTO) 58.5 % (42.2-75.2); PLATELET COUNT (AUTO) 234 K/uL (140-450); RED BLOOD CELL COUNT(AUTO) 3.93 MIL/uL (4.20-6.10); RED CELL DISTRIBUTION WIDTH 14.4 % (11.6-13.7); WHITE BLOOD COUNT (AUTO) 5.5 K/uL (4.8-10.8)
[2020-09-24 07:16] LABS: ANION GAP 5.4 (8-16); CARBON DIOXIDE 36.1 mmol/L (21-32); CREATININE 0.6 mg/dL (0.6-1.3); POTASSIUM 3.5 mmol/L (3.5-5.1); TOTAL BILIRUBIN 0.4 mg/dL (0.0-1.0)
--- NOTE | 2020-09-24 07:57 | NUR ---
RECEIVED PATIENT IN BED RESTING COMFORTABLY. PATIENT PRESENTS CALM AND COOPERATIVE, ABLE TO EXPRESS NEEDS. RESPIRATIONS ARE NON-LABORED. SKIN IS CLEAN, WARM AND DRY TO TOUCH. IV ACCESS IS PATENT, DRY AND INTACT. BED IS LOCKED IN LOWEST POSITION, CALL LIGHT IN REACH. NURSE WILL CONTINUE CARE AND MONITOR FOR CHANGES IN STATUS.
[2020-09-24 08:00] VITALS: BP 111/70
[2020-09-24] MEDS: FUROSEMIDE 20 MG/2 ML VIAL IVP SCH (09:06)
[2020-09-24] MEDS: LIDOCAINE 5% 1 EA PATCH TP SCH (09:06)
[2020-09-24] MEDS: POLYETHYLENE GLYCOL 17 GM/PKT PO SCH ×2 (09:06→21:00)
[2020-09-24] MEDS: ENOXAPARIN 40 MG/0.4 ML SYR SUBQ SCH (09:07)
[2020-09-24 12:00] VITALS: BP 135/85
--- NOTE | 2020-09-24 12:31 | NUR ---
PATIENT RESTING COMFORTABLY, NO C/ O PAIN OR DISCOMFORT. RESPIRATIONS ARE NON-LABORED. SKIN IS CLEAN,. WARM AND DRY TO TOUCH. IV ACCESS IS PATENT, DRY AND INTACT. BED IS LOCKED IN LOWEST POSITION, CALL LIGHT IN REACH. NURSE WILL CONTINUE TO MONITOR FOR CHANGES IN STATUS.
--- NOTE | 2020-09-24 13:20 | NUR ---
LEFT MESSAGE WITH ANSWERING SERVICE OF DR. GALE, REGARDING SYNTHROID DOSE FOR CLARIFICATION. AWAITING CALL BACK/FOLLOW UP.
--- NOTE | 2020-09-24 15:33 | NUR ---
PATIENT RESTING COMFORTABLY, NO C/O PAIN OR DISCOMFORT. RESPIRATIONS ARE NON-LABORED. SKIN IS CLEAN, WARM AND DRY TO TOUCH. IV ACCESS IS PATENT, DRY INTACT, NO S/SX OF INFILTRATION. BED IS LOCKED IN LOWEST POSITION, CALL LIGHT IN REACH. NURSE WILL CONTINUE TO MONITOR FOR CHANGES IN STATUS.
[2020-09-24 16:00] VITALS: BP 113/76
--- NOTE | 2020-09-24 18:55 | NUR ---
Patient resting comfortably, no c/o pain or discomfort. Respirations are non-labored. skin is clean, warm and dry to touch. IV access is patent, dry and intact. bed is locked in lowest position, patient endorsed to mine shifter nurse for continued care..
[2020-09-24 20:00] VITALS: BP 130/69
[2020-09-25] VITALS: BP 124/86
[2020-09-25 04:00] VITALS: BP 109/63
[2020-09-25] MEDS: LEVOTHYROXINE 0.025 MG TAB PO SCH (06:40)
--- NOTE | 2020-09-25 08:19 | NUR ---
RECEIVED PATIENT IN BED RESTING COMFORTABLY, PRESENTS CALM AND COOPERATIVE, ABLE TO EXPRESS NEEDS. NO C/O PAIN OR DISCOMFORT. RESPIRATIONS ARE NON-LABORED. SKIN IS CLEAN, WARM AND DRY TO TOUCH. IV ACCESS IS PATENT, DRY AND INTACT. BED IS LOCKED IN LOWEST POSITION, CALL LIGHT IN REACH. NURSE WILL CONTINUE CARE AND MONITOR FOR CHANGES IN STATUS.
[2020-09-25] MEDS: ENOXAPARIN 40 MG/0.4 ML SYR SUBQ SCH (09:52)
[2020-09-25] MEDS: LIDOCAINE 5% 1 EA PATCH TP SCH (09:52)
[2020-09-25] MEDS: FUROSEMIDE 20 MG/2 ML VIAL IVP SCH (09:54)
--- NOTE | 2020-09-25 13:06 | NUR ---
PATIENT RESTING COMFORTABLY, NO C/O PAIN OR DISCOMFORT. RESPIRATIONS ARE NON-LABORED. SKIN IS CLEAN, WARM AND DRY TO TOUCH. IV ACCESS IS PATENT, DRY AND INTACT. BED IS LOCKED IN LOWEST POSITION, CALL LIGHT IN REACH. NURSE WILL CONTINUE TO MONITOR FOR CHANGES IN STATUS.
[2020-09-25] MEDS ORDERED: FAMO-90 PO (15:18)
[2020-09-25] MEDS ORDERED: FLONAS NS (15:18)
[2020-09-25] MEDS ORDERED: APIX2.5 PO (15:18)
[2020-09-25] MEDS ORDERED: ACET-2619 PO (15:18)
[2020-09-25] MEDS ORDERED: FURO-572 PO (15:18)
--- NOTE | 2020-09-25 18:21 | NUR ---
PATIENT DISCHARGED TO HOME WITH FAMILY FOR FOLLOW UP CARE WITH HOME HEALTH. PATIENT/FAMILY GIVEN DISCHARGE INSTRUCTIONS, EDUCATION AND FOLLOW UP CARE. PATIENT/FAMILY VERBALIZES UNDERSTANDING. PATIENT HAS ALL PERSONAL BELONGINGS. IV ACCESS DISCONTINUED, SECURED. NO S/SX OF SWELLING OR REDNESS NOR PAIN. PATIENT ON OXYGEN SUPPORT 6LPM VIA NASAL CANNULA. O2 HOME WITH SUPPORT VERIFIED BY FAMILY DELIVERED.
[2020-09-26] MEDS ORDERED: ENOXAPARIN 40 MG/0.4 ML SYR SUBQ SCH (09:00)
[2020-09-26] MEDS ORDERED: POLYETHYLENE GLYCOL 17 GM/PKT PO SCH (09:00)
== END 2020-09-25 18:02 | disposition home or self-care (01) | DRG 720 ==
LOC: MED 01:05 → MMU 03:53 → MTU 08-18 06:17
PROVIDERS: ADMIT Hospitalist; ATTEND Hospitalist
PROC: 02HV33Z Insertion of Infusion Device into Superior Vena Cava, Percutaneous Approach (ICD-10-PCS; 2020-08-17)
PROC: 30233K1 Transfusion of Nonautologous Frozen Plasma into Peripheral Vein, Percutaneous Approach (ICD-10-PCS; principal; 2020-08-21)
PROC: XW033E5 Introduction of Remdesivir Anti-infective into Peripheral Vein, Percutaneous Approach, New Technology Group 5 (ICD-10-PCS; 2020-08-21)
DX: A41.9 Sepsis, unspecified organism (principal); U07.1 COVID-19; R65.21 Severe sepsis with septic shock; E44.0 Moderate protein-calorie malnutrition; J96.01 Acute respiratory failure with hypoxia; N17.0 Acute kidney failure with tubular necrosis; E87.1 Hypo-osmolality and hyponatremia; E87.6 Hypokalemia; Z88.0 Allergy status to penicillin; J12.82 Pneumonia due to coronavirus disease 2019; E03.9 Hypothyroidism, unspecified; E86.0 Dehydration; I10 Essential (primary) hypertension; R74.01 Elevation of levels of liver transaminase levels; Z68.31 Body mass index [BMI] 31.0-31.9, adult; B19.9 Unspecified viral hepatitis without hepatic coma; D64.9 Anemia, unspecified
CPT/HCPCS: 36415; 36600; 71045; 76770; 80048; 80053; 80305; 81003; 82150; 82436; 82550; 82570; 82607; 82728; 82746; 82803; 82948; 83036; 83605; 83615; 83690; 83735; 83880; 84100; 84300; 84439; 84443; 84479; 84484; 85025; 85379; 85384; 85610; 85651; 85730; 86140; 86704; 86706; 86803; 86886; 86900; 86901; 87040; 87081; 87086; 87340; 87420; 87804; 93005; 94660; 96361; 96365; 96366; 96375; 97110; 97112; 97116; 97161-GP; 97530; 99291; G0480; G0482; J0456; J0692; J0696; J1100; J1644; J1650; J1940; J2001; J3480; J3490; J7030; J7060; P9017; U0003